=== PATIENT | female | born 1940 | race Caucasian/White ===

== ENCOUNTER → 2016-11-23 | Outpatient (REF) | payer MEDICARE, OTHER ==
[2016-11-23 11:51] LABS: ALBUMIN 3.7 GM/DL (3.2-5.2); ALBUMIN/GLOBULIN RATIO 1.09 (1.00-1.93); BILIRUBIN,TOTAL 0.9 MG/DL (0.2-1.0); CALCIUM LEVEL 9.6 MG/DL (8.8-10.2); CREATININE FOR GFR 1.25 MG/DL (0.55-1.02); GLOMERULAR FILTRATION RATE 44.5 (>39); POTASSIUM SERUM 4.5 MEQ/L (3.5-5.1); TOTAL PROTEIN 7.1 GM/DL (6.4-8.2)
== END ==
LOC: M SFHCLERA 09:51
PROVIDERS: ATTEND Physician Assistant
DX: I10 Essential (primary) hypertension (principal); E78.2 Mixed hyperlipidemia

== ENCOUNTER → 2017-01-27 | Outpatient (REF) | payer MEDICARE, OTHER | LOC: M LAB REF 12:58 | PROVIDERS: ATTEND Internal Medicine Nephrology | DX: N18.3 Chronic kidney disease, stage 3 (moderate) (principal); I12.9 Hypertensive chronic kidney disease with stage 1 through stage 4 chronic kidney disease, or unspecified chronic kidney disease; Z79.899 Other long term (current) drug therapy ==

== ENCOUNTER → 2017-01-31 | Outpatient (CLI) | payer MEDICARE, OTHER ==
--- NOTE | 2017-01-31 14:42 | REP ---
REASON: Urinary frequency. The pre-void urinary bladder volume calculation is 62 mL and the post-void urinary bladder volume calculation is 0 mL. There were no gross abnormalities, however, ultrasonography cannot rule out small mucosal abnormalities secondary to malignancy and if that is of clinical concern, then cystoscopy would be in order. Signed by Radames Hunt DO 01/31/2017 03:34 P
== END ==
LOC: M RAD 10:44
PROVIDERS: ATTEND Internal Medicine Nephrology
DX: N18.3 Chronic kidney disease, stage 3 (moderate) (principal); R35.0 Frequency of micturition

== ENCOUNTER → 2017-02-03 | Outpatient (REF) | payer MEDICARE, OTHER ==
[2017-02-03 17:17] LABS: COMPLEMENT C3 138 MG/DL (90-180); COMPLEMENT C4 26.1 MG/DL (10-40); TOTAL PROTEIN 6.9 GM/DL (6.4-8.2)
[2017-02-06 11:55] LABS: ALBUMIN % 57.9 % (55.8-66.1)
[2017-02-06 11:56] LABS: GAMMA GLOBULIN % 13.8 % (11.1-18.8)
[2017-02-08 14:15] LABS: FREE KAPPA LIGHT CHAINS SERUM 32.2 mg/L (3.3-19.4); FREE LAMBDA LIGHT CHAINS SERUM 31.3 mg/L (5.7-26.3); KAPPA/LAMBDA RATIO SERUM 1.03 (0.26-1.65); SJOGREN'S ANTI SS-A <0.2 AI (0.0-0.9); SJOGREN'S ANTI SS-B <0.2 AI (0.0-0.9)
== END ==
LOC: M LAB REF 16:46
PROVIDERS: ATTEND Internal Medicine Nephrology
DX: N18.3 Chronic kidney disease, stage 3 (moderate) (principal); R80.9 Proteinuria, unspecified

== ENCOUNTER → 2017-02-23 | Outpatient (CLI) | payer MEDICARE, OTHER ==
--- NOTE | 2017-02-23 10:10 | REP ---
RENAL ULTRASOUND: Real-time sonographic evaluation of the kidneys performed. There is mild left renal atrophy. Right kidney measures 10.1 x 6.0 x 5.2 cm and left kidney 8.6 x 4.2 x 4.3 cm. There is no hydronephrosis bilaterally. There is an extrarenal pelvis on the right. There is no renal mass or calculus identified. Urinary bladder is not well distended and not well evaluated. IMPRESSION: Mild left renal atrophy. No hydronephrosis. Signed by Zach Saucedo MD 02/23/2017 03:12 P
== END ==
LOC: M RAD 09:33
PROVIDERS: ATTEND Internal Medicine Nephrology
DX: N18.3 Chronic kidney disease, stage 3 (moderate) (principal); N26.1 Atrophy of kidney (terminal); I12.9 Hypertensive chronic kidney disease with stage 1 through stage 4 chronic kidney disease, or unspecified chronic kidney disease

== ENCOUNTER → 2017-04-07 | Outpatient (REF) | payer MEDICARE, OTHER ==
[2017-04-07 11:58] LABS: MEAN CORPUSCULAR HEMOGLOBIN 32.8 pg (27.0-33.0); MEAN CORPUSCULAR HGB CONC 33.9 g/dl (32.0-36.5); MEAN CORPUSCULAR VOLUME 96.5 fl (80.0-96.0); RED CELL DISTRIBUTION WIDTH 11.4 % (11.5-14.5)
[2017-04-07 13:00] LABS: ALBUMIN/GLOBULIN RATIO 1.11 (1.00-1.93); BILIRUBIN,TOTAL 0.7 MG/DL (0.2-1.0); CALCIUM LEVEL 9.9 MG/DL (8.8-10.2); CREATININE FOR GFR 1.27 MG/DL (0.55-1.02); GLOMERULAR FILTRATION RATE 43.7 (>39); POTASSIUM SERUM 4.4 MEQ/L (3.5-5.1); TOTAL PROTEIN 7.6 GM/DL (6.4-8.2)
== END ==
LOC: M SFHCLERA 10:09
PROVIDERS: ATTEND Physician Assistant
DX: I10 Essential (primary) hypertension (principal); E78.2 Mixed hyperlipidemia; E55.9 Vitamin D deficiency, unspecified

== ENCOUNTER → 2017-10-30 | Outpatient (REF) | payer MEDICARE, OTHER ==
[2017-10-30 18:07] LABS: TOTAL PROTEIN,RANDOM URINE 71.5 MG/DL (0.0-12.0)
== END ==
LOC: M LAB REF 17:04
DX: R80.9 Proteinuria, unspecified (principal); N18.3 Chronic kidney disease, stage 3 (moderate)
CPT/HCPCS: 84156

== ENCOUNTER → 2017-11-28 | Outpatient (CLI) | payer MEDICARE, OTHER | LOC: M RAD 09:36 | DX: N18.3 Chronic kidney disease, stage 3 (moderate) (principal); N26.1 Atrophy of kidney (terminal) | CPT/HCPCS: 78707 ==

== ENCOUNTER → 2018-01-08 | Outpatient (REF) | payer MEDICARE, OTHER ==
[2018-01-08 19:31] LABS: TOTAL PROTEIN,RANDOM URINE 81.9 MG/DL (0.0-12.0)
== END ==
LOC: M LAB REF 17:56
DX: R80.9 Proteinuria, unspecified (principal); N18.3 Chronic kidney disease, stage 3 (moderate)
CPT/HCPCS: 84156

== ENCOUNTER → 2018-01-16 | Outpatient (CLI) | payer MEDICARE, OTHER | LOC: M RAD 07:40 | DX: N27.0 Small kidney, unilateral (principal) | CPT/HCPCS: 76775 ==

== ENCOUNTER → 2018-03-29 | Outpatient (REF) | payer MEDICARE, OTHER ==
[2018-03-29 16:22] LABS: BASO # 0.1 10^3/uL (0.0-0.2); BASO % 0.8 % (0.0-1.0); EOS # 0.1 10^3/uL (0.0-0.50); EOS % 1.6 % (0.0-3.0); HEMATOCRIT 39.8 % (36.0-47.0); HEMOGLOBIN 13.6 g/dl (12.0-15.5); IMMATURE GRANULOCYTE % 0.3 % (0-3.0); LYMPH # 0.7 10^3/uL (1.5-4.5); LYMPH % 8.6 % (24.0-44.0); MEAN CORPUSCULAR HEMOGLOBIN 33.1 pg (27.0-33.0); MEAN CORPUSCULAR HGB CONC 34.2 g/dl (32.0-36.5); MEAN CORPUSCULAR VOLUME 96.8 fl (80.0-96.0); MONO # 0.8 10^3/uL (0.0-0.8); MONO % 10.4 % (0.0-5.0); NEUTROPHILS % 78.3 % (36.0-66.0); PLATELET COUNT, AUTOMATED 155 10^3/uL (150-450); RED BLOOD COUNT 4.11 10^6/uL (4.00-5.40); RED CELL DISTRIBUTION WIDTH 11.7 % (11.5-14.5); WHITE BLOOD COUNT 7.7 10^3/uL (4.0-10.0)
[2018-03-29 17:05] LABS: CREATININE, URINE 77.1 MG/DL
[2018-03-29 17:14] LABS: ALBUMIN 4.2 GM/DL (3.2-5.2); ALBUMIN/GLOBULIN RATIO 1.31 (1.00-1.93); ALKALINE PHOSPHATASE 83 U/L (45-117); ALT/SGPT 29 U/L (12-78); ANION GAP 9 MEQ/L (8-16); AST/SGOT 32 U/L (7-37); BILIRUBIN,TOTAL 0.5 MG/DL (0.2-1.0); BLOOD UREA NITROGEN 36 MG/DL (7-18); CALCIUM LEVEL 10.1 MG/DL (8.8-10.2); CARBON DIOXIDE LEVEL 27 MEQ/L (21-32); CHLORIDE LEVEL 104 MEQ/L (98-107); CHOLESTEROL LEVEL 162 MG/DL (<200); CHOLESTEROL RISK RATIO 4.909 (<5); CREATININE FOR GFR 1.26 MG/DL (0.55-1.30); GLUCOSE, FASTING 83 MG/DL (70-100); HDL CHOLESTEROL 33 MG/DL (>40); LDL CHOLESTEROL 77 MG/DL (<100); MAU/CREAT RATIO 389.1 MCG/MG (0.0-30.0); NON-HDL-C 129 MG/DL; POTASSIUM SERUM 4.6 MEQ/L (3.5-5.1); SODIUM LEVEL 140 MEQ/L (136-145); TOTAL PROTEIN 7.4 GM/DL (6.4-8.2); TRIGLYCERIDES LEVEL 258 MG/DL (<150)
[2018-03-29 17:55] LABS: ESTIMATED AVERAGE GLUCOSE 103 MG/DL (60-110); HEMOGLOBIN A1c 5.2 %
== END ==
LOC: M SFHCLERA 11:28
DX: N18.3 Chronic kidney disease, stage 3 (moderate) (principal); I12.9 Hypertensive chronic kidney disease with stage 1 through stage 4 chronic kidney disease, or unspecified chronic kidney disease; N39.41 Urge incontinence; M19.90 Unspecified osteoarthritis, unspecified site; R09.82 Postnasal drip; Z79.899 Other long term (current) drug therapy
CPT/HCPCS: 84443

== ENCOUNTER → 2018-04-24 | Outpatient (REF) | payer MEDICARE, OTHER ==
[2018-04-24 22:33] LABS: TOTAL PROTEIN,RANDOM URINE 56.3 MG/DL (0.0-12.0)
== END ==
LOC: M LAB REF 17:11
DX: R80.9 Proteinuria, unspecified (principal); N18.3 Chronic kidney disease, stage 3 (moderate)
CPT/HCPCS: 84156

== ENCOUNTER → 2018-04-26 | Outpatient (REF) | payer MEDICARE, OTHER ==
[2018-04-26 14:31] LABS: TOTAL PROTEIN 7.4 GM/DL (6.4-8.2)
[2018-04-28 00:06] LABS: FREE KAPPA LIGHT CHAINS SERUM 33.3 mg/L (3.3-19.4); FREE LAMBDA LIGHT CHAINS SERUM 32.3 mg/L (5.7-26.3); KAPPA/LAMBDA RATIO SERUM 1.03 (0.26-1.65)
[2018-05-01 13:41] LABS: ALBUMIN 4.45 GM/DL (3.29-5.55); ALBUMIN % 60.1 % (55.8-66.1); ALPHA-1-GLOBULIN % 4.1 % (2.9-4.9); ALPHA-2-GLOBULINS 0.82 GM/DL (0.42-0.99); ALPHA-2-GLOBULINS % 11.1 % (7.1-11.8); BETA-1-GLOBULINS 0.42 GM/DL (0.28-0.60); BETA-1-GLOBULINS % 5.7 % (4.7-7.2); BETA-2-GLOBULINS 0.39 GM/DL (0.19-0.55); BETA-2-GLOBULINS % 5.3 % (3.2-6.5); GAMMA GLOBULIN % 13.7 % (11.1-18.8); GAMMA GLOBULINS 1.01 GM/DL (0.65-1.58)
== END ==
LOC: M LAB REF 13:57
DX: N18.3 Chronic kidney disease, stage 3 (moderate) (principal); E83.52 Hypercalcemia; R80.9 Proteinuria, unspecified
CPT/HCPCS: 84165

== ENCOUNTER → 2018-10-22 | Outpatient (REF) | payer MEDICARE, OTHER ==
[2018-10-22 17:16] LABS: CALCIUM LEVEL 10.3 MG/DL (8.8-10.2); CREATININE FOR GFR 1.24 MG/DL (0.55-1.30); GLOMERULAR FILTRATION RATE 44.7 (>39); POTASSIUM SERUM 4.5 MEQ/L (3.5-5.1)
== END ==
LOC: M SFHCLERA 10:57
PROVIDERS: ATTEND Family Medicine
DX: I10 Essential (primary) hypertension (principal)
CPT/HCPCS: 80048; G0463

== ENCOUNTER → 2018-10-25 | Outpatient (REF) | payer MEDICARE, OTHER | LOC: M SFHCLERA 10:33 | PROVIDERS: ATTEND Family Medicine | DX: E83.52 Hypercalcemia (principal) ==

== ENCOUNTER → 2018-11-01 | Outpatient (REF) | payer MEDICARE, OTHER ==
[2018-11-01 19:25] LABS: TOTAL PROTEIN,RANDOM URINE 61.1 MG/DL (0.0-12.0); URINE TOTAL PROTEIN 61.1 MG/DL (0-12)
== END ==
LOC: M LAB REF 17:21
PROVIDERS: ATTEND Internal Medicine Nephrology
DX: N18.3 Chronic kidney disease, stage 3 (moderate) (principal); E83.52 Hypercalcemia; R80.9 Proteinuria, unspecified

== ENCOUNTER → 2019-01-21 | Outpatient (REF) | payer MEDICARE, OTHER ==
[2019-01-21 17:04] LABS: CALCIUM LEVEL 9.7 MG/DL (8.8-10.2); CREATININE FOR GFR 1.24 MG/DL (0.55-1.30); GLOMERULAR FILTRATION RATE 44.7 (>39); MAGNESIUM LEVEL 2.2 MG/DL (1.8-2.4); POTASSIUM SERUM 4.2 MEQ/L (3.5-5.1)
[2019-01-21 17:15] LABS: TOTAL 25(OH) VITAMIN D 46.1 NG/ML (30.0-100.0)
== END ==
LOC: M SFHCLERA 12:26
PROVIDERS: ATTEND Family Medicine
DX: E83.42 Hypomagnesemia (principal); N18.3 Chronic kidney disease, stage 3 (moderate)
CPT/HCPCS: 80048; 82306; 83735; G0463

== ENCOUNTER → 2019-04-23 | Outpatient (REF) | payer MEDICARE, OTHER ==
[2019-04-23 16:35] LABS: BASO # 0.1 10^3/uL (0.0-0.2); BASO % 0.8 % (0.0-1.0); EOS # 0.1 10^3/uL (0.0-0.5); EOS % 1.4 % (0.0-3.0); HEMATOCRIT 41.5 % (36.0-47.0); HEMOGLOBIN 13.4 g/dl (12.0-15.5); LYMPH # 0.9 10^3/uL (1.5-5.0); LYMPH % 10.1 % (24.0-44.0); MEAN CORPUSCULAR HEMOGLOBIN 32.8 pg (27.0-33.0); MEAN CORPUSCULAR HGB CONC 32.3 g/dl (32.0-36.5); MEAN CORPUSCULAR VOLUME 101.5 fl (80.0-96.0); MONO # 0.9 10^3/uL (0.0-0.8); MONO % 10.6 % (0.0-5.0); NEUTROPHILS # 6.7 10^3/uL (1.5-8.5); NEUTROPHILS % 76.8 % (36.0-66.0); PLATELET COUNT, AUTOMATED 189 10^3/uL (150-450); RED BLOOD COUNT 4.09 10^6/uL (4.00-5.40); WHITE BLOOD COUNT 8.8 10^3/uL (4.0-10.0)
[2019-04-23 17:42] LABS: CREATININE FOR GFR 1.09 MG/DL (0.55-1.30); GLOMERULAR FILTRATION RATE 51.7 (>39); MAGNESIUM LEVEL 2.1 MG/DL (1.8-2.4); PHOSPHORUS LEVEL 3.5 MG/DL (2.5-4.9); POTASSIUM SERUM 4.4 MEQ/L (3.5-5.1); THYROID STIMULATING HORMONE 2.45 uIU/ML (0.358-3.740)
[2019-04-23 17:45] LABS: CREATININE, URINE 87.9 MG/DL; MAU/CREAT RATIO 313.9 MCG/MG (0.0-30.0)
== END ==
LOC: M SFHCLERA 11:44
PROVIDERS: ATTEND Family Medicine
DX: I12.9 Hypertensive chronic kidney disease with stage 1 through stage 4 chronic kidney disease, or unspecified chronic kidney disease (principal); E83.42 Hypomagnesemia; N18.3 Chronic kidney disease, stage 3 (moderate)
CPT/HCPCS: 80048; 82043; 83735; 84100; 84443; 85025; G0463

== ENCOUNTER → 2019-05-09 | Outpatient (REF) | payer MEDICARE, OTHER | LOC: M LAB REF 13:03 | PROVIDERS: ATTEND Internal Medicine Nephrology | DX: N18.3 Chronic kidney disease, stage 3 (moderate) (principal); R80.9 Proteinuria, unspecified ==

== ENCOUNTER 2019-07-25 07:32 | Day surgery (SDC) | payer MEDICARE, OTHER ==
[~2019-07-25] VITALS: Ht 147.3 cm; Wt 57.5 kg
[~2019-07-25 07:32] MED LIST: AMLO5TAB6 PO; BIOT1CAP2 PO; CHEL100T4 PO; FISH1000 PO; HM S0.65; MULTCAP PO; OPTI0.5D5 OP; PRESCAP PO; SM G150T PO; SPIR-10 PO; TOPR25TA PO; VITA100066 PO; VITA500C24 PO
[2019-07-25] MEDS ORDERED: LIDOCAINE 2% INJ 100 MG/5 ML SDV (FOR ANES.) As Ordered ONE (08:07)
[2019-07-25] MEDS ORDERED: propofoL 200 MG/20 ML VIAL As Ordered ONE (08:07)
[2019-07-25] MEDS ORDERED: NS 1,000 ML IV ONE (09:00)
--- NOTE | 2019-07-25 09:21 | ROOR ---
Patient Name: Kylah Valderrama Procedure Date: 07/25/2019 8:54 AM Date of : 1940 Age: 79 Room: [facility] Gender: Female Note Status: Finalized Procedure: Colonoscopy Indications: High risk colon cancer surveillance: Personal history of colonic polyps Providers: Bebeto CABRERA MD Referring MD: Zach BRYAN MD Requesting Provider: Medicines: Monitored Anesthesia Care Complications: No immediate complications. Procedure: Pre-Anesthesia Assessment: - The heart rate, respiratory rate, oxygen saturations, blood pressure, adequacy of pulmonary ventilation, and response to care were monitored throughout the procedure. The Colonoscope was introduced through the anus and advanced to the terminal ileum, with identification of the appendiceal orifice and IC valve. The colonoscopy was performed without difficulty. The patient tolerated the procedure well. The quality of the bowel preparation was good. Findings: The perianal and digital rectal examinations were normal. Three sessile polyps were found in the ascending colon. The polyps were diminutive in size. These polyps were removed with a cold snare. Resection and retrieval were complete. A 5 mm polyp was found in the recto-sigmoid colon. The polyp was sessile. The polyp was removed with a cold snare. Resection and retrieval were complete. Mild sigmoid diverticulosis and small internal hemorrhoids. The exam was otherwise without abnormality on direct and retroflexion views. Retroflexion in the right colon was performed. There was a medium-sized lipoma, in the mid ascending colon. Impression: - Three diminutive polyps in the ascending colon, removed with a cold snare. Resected and retrieved. - One 5 mm polyp at the recto-sigmoid colon, removed with a cold snare. Resected and retrieved. - Mild sigmoid diverticulosis and small internal hemorrhoids. - The examination was otherwise normal on direct and retroflexion views. Recommendation: - Repeat colonoscopy in 3 years for surveillance. Bebeto Cabrera MD Bebeto CABRERA MD 07/25/2019 9:21:21 AM Electronically signed by Bebeto CABRERA MD Number of Addenda: 0 Note Initiated On: 07/25/2019 8:54 AM Estimated Blood Loss: Estimated blood loss: none.
[2019-07-25 09:50] VITALS: BP 166/88
== END 2019-07-25 10:01 | disposition home or self-care (01) ==
LOC: M OPP 07:32
PROVIDERS: ATTEND Internal Medicine Gastroenterology
DX: Z12.11 Encounter for screening for malignant neoplasm of colon (principal); Z86.010 Personal history of colon polyps; D12.7 Benign neoplasm of rectosigmoid junction; D12.2 Benign neoplasm of ascending colon; D17.5 Benign lipomatous neoplasm of intra-abdominal organs; K57.30 Diverticulosis of large intestine without perforation or abscess without bleeding; K64.8 Other hemorrhoids; Z79.82 Long term (current) use of aspirin; Z79.899 Other long term (current) drug therapy; Z88.1 Allergy status to other antibiotic agents; Z88.2 Allergy status to sulfonamides

== ENCOUNTER → 2019-11-08 | Outpatient (REF) | payer MEDICARE, OTHER | LOC: M LAB REF 17:19 | PROVIDERS: ATTEND Internal Medicine Nephrology | DX: R80.9 Proteinuria, unspecified (principal); N18.3 Chronic kidney disease, stage 3 (moderate) ==

== ENCOUNTER → 2020-05-13 | Outpatient (REF) | payer MEDICARE, OTHER ==
[~2020-05-13] MED LIST changes: +AMLO1TAB24 PO; -AMLO5TAB6 PO
[2020-05-13 18:21] LABS: TOTAL PROTEIN 6.8 GM/DL (6.4-8.2)
[2020-05-13 18:25] LABS: TOTAL PROTEIN,RANDOM URINE 50.7 MG/DL (0.0-12.0)
[2020-05-14 14:53] LABS: ALBUMIN 4.21 GM/DL (3.29-5.55); ALBUMIN % 61.9 % (55.8-66.1); ALPHA-1-GLOBULIN % 4.1 % (2.9-4.9); ALPHA-1-GLOBULINS 0.28 GM/DL (0.17-0.41); ALPHA-2-GLOBULINS 0.71 GM/DL (0.42-0.99); ALPHA-2-GLOBULINS % 10.4 % (7.1-11.8); BETA-1-GLOBULINS 0.37 GM/DL (0.28-0.60); BETA-1-GLOBULINS % 5.5 % (4.7-7.2); BETA-2-GLOBULINS 0.33 GM/DL (0.19-0.55); BETA-2-GLOBULINS % 4.8 % (3.2-6.5); GAMMA GLOBULIN % 13.3 % (11.1-18.8)
== END ==
LOC: M LAB REF 17:10
PROVIDERS: ATTEND Internal Medicine Nephrology
DX: R80.9 Proteinuria, unspecified (principal)

== ENCOUNTER → 2020-08-28 | Outpatient (CLI) | payer MEDICARE, OTHER ==
--- NOTE | 2020-08-28 12:53 | REPMRS ---
Patient History The patient states she has not had a clinical breast exam in over a year. Patient is postmenopausal. Digital Woman Screen Mammo: August 28, 2020 - Exam #: [id number] Bilateral CC and MLO view(s) were taken. Technologist: Verito Mariano, Technologist Prior study comparison: February 25, 2019, bilateral digital mammo screening bilat, performed at [facility]. February 22, 2018, bilateral digital mammo screening bilat, performed at [facility]. February 21, 2017, bilateral digital mammo screening bilat, performed at [facility]. FINDINGS: The breast tissue is heterogeneously dense. This may lower the sensitivity of mammography. The Volpara volumetric breast density category is: C. There is a moderate amount of heterogeneously dense fibroglandular tissue which is fairly symmetric. There is no interval development of dominant mass, architectural distortion, or grouped microcalcification typical of malignancy. There has been no change in the appearance of the mammogram from the prior studies. 3-D tomosynthesis shows no additional findings. Assessment: BI-RADS/ACR category 1 mammogram. Negative Mammogram. Recommendation Routine screening mammogram of both breasts in 1 year (for women over age 40). This patient's [facility] Lifetime Breast Cancer RIsk is estimated at 2.2 %. This mammogram was interpreted with the aid of an FDA-approved computer-aided dectection system. Electronically Signed By: Jaden Gonzalez MD 08/28/20 5086
== END ==
LOC: M WHC 11:23
PROVIDERS: ATTEND Nurse Practitioner Family
DX: Z12.31 Encounter for screening mammogram for malignant neoplasm of breast (principal)

== ENCOUNTER → 2020-10-30 | Outpatient (CLI) | payer MEDICARE, OTHER | LOC: M PLARAD 13:23 | PROVIDERS: ATTEND Orthopaedic Surgery Sports Medicine | DX: S46.012A Strain of muscle(s) and tendon(s) of the rotator cuff of left shoulder, initial encounter (principal); X58.XXXA Exposure to other specified factors, initial encounter; Y92.9 Unspecified place or not applicable ==

== ENCOUNTER → 2021-01-06 | Outpatient (CLI) | payer MEDICARE, OTHER ==
[~2021-01-06] MED LIST changes: +HYDR-3363; +LEXA5TAB13; +METO1TAB32
[2021-01-06 11:52] LABS: BASO % 0.5 % (0.0-1.0); EOS # 0.1 10^3/uL (0.0-0.5); EOS % 0.8 % (0.0-3.0); HEMATOCRIT 29.8 % (36.0-47.0); HEMOGLOBIN 9.6 g/dl (12.0-15.5); LYMPH # 0.5 10^3/uL (1.5-5.0); LYMPH % 6.7 % (24.0-44.0); MEAN CORPUSCULAR HGB CONC 32.2 g/dl (32.0-36.5); MEAN CORPUSCULAR VOLUME 99.3 fl (80.0-96.0); MONO # 1.1 10^3/uL (0.0-0.8); MONO % 14.1 % (2.0-8.0); NEUTROPHILS # 5.8 10^3/uL (1.5-8.5); NEUTROPHILS % 77.4 % (36.0-66.0); PLATELET COUNT, AUTOMATED 166 10^3/uL (150-450); WHITE BLOOD COUNT 7.5 10^3/uL (4.0-10.0)
[2021-01-06 12:23] LABS: ALT/SGPT 44 U/L (12-78); BILIRUBIN,TOTAL 0.6 MG/DL (0.2-1.0); BLOOD UREA NITROGEN 33 MG/DL (7-18); CALCIUM LEVEL 9.3 MG/DL (8.8-10.2); CARBON DIOXIDE LEVEL 26 MEQ/L (21-32); CHLORIDE LEVEL 110 MEQ/L (98-107); CHOLESTEROL LEVEL 74 MG/DL (<200); CREATININE FOR GFR 0.78 MG/DL (0.55-1.30); GLOMERULAR FILTRATION RATE > 60.0 (>39); GLUCOSE, FASTING 96 MG/DL (70-100); HDL CHOLESTEROL 20 MG/DL (>40); LDL CHOLESTEROL 28 MG/DL (<100); MAGNESIUM LEVEL 1.6 MG/DL (1.8-2.4); NON-HDL-C 54 MG/DL; POTASSIUM SERUM 3.7 MEQ/L (3.5-5.1); SODIUM LEVEL 142 MEQ/L (136-145); THYROID STIMULATING HORMONE < 0.005 uIU/ML (0.358-3.740); TOTAL PROTEIN 5.8 GM/DL (6.4-8.2); TRIGLYCERIDES LEVEL 130 MG/DL (<150)
== END ==
LOC: M WUC 09:55
PROVIDERS: ATTEND Nurse Practitioner Family
DX: R41.3 Other amnesia (principal); I10 Essential (primary) hypertension; E78.2 Mixed hyperlipidemia; E83.42 Hypomagnesemia

== ENCOUNTER 2021-01-10 14:50 | Emergency (ER) | payer MEDICARE, OTHER ==
[~2021-01-10] VITALS: Ht 154.9 cm; Wt 49.5 kg
[~2021-01-10 14:50] MED LIST changes: -HYDR-3363; -LEXA5TAB13; -METO1TAB32
[2021-01-10] MEDS ORDERED: HYDR-3363 (15:04)
[2021-01-10] MEDS ORDERED: LEXA5TAB13 (15:04)
[2021-01-10] MEDS ORDERED: METO1TAB32 (15:04)
[2021-01-10 15:51] LABS: BASO % 0.4 % (0.0-1.0); EOS # 0.1 10^3/uL (0.0-0.5); HEMATOCRIT 30.1 % (36.0-47.0); HEMOGLOBIN 9.7 g/dl (12.0-15.5); LYMPH # 0.5 10^3/uL (1.5-5.0); LYMPH % 7.3 % (24.0-44.0); MEAN CORPUSCULAR HEMOGLOBIN 31.3 pg (27.0-33.0); MEAN CORPUSCULAR HGB CONC 32.2 g/dl (32.0-36.5); MEAN CORPUSCULAR VOLUME 97.1 fl (80.0-96.0); MONO % 15.4 % (2.0-8.0); NEUTROPHILS # 5.1 10^3/uL (1.5-8.5); NEUTROPHILS % 75.8 % (36.0-66.0); PLATELET COUNT, AUTOMATED 139 10^3/uL (150-450); WHITE BLOOD COUNT 6.7 10^3/uL (4.0-10.0)
[2021-01-10 16:18] LABS: OSMOLALITY SERUM 303 MOSM/KG (280-301)
[2021-01-10 16:25] LABS: ALBUMIN 2.9 GM/DL (3.2-5.2); ALT/SGPT 40 U/L (12-78); BILIRUBIN,DIRECT 0.1 MG/DL (0.0-0.2); BILIRUBIN,TOTAL 0.3 MG/DL (0.2-1.0); BLOOD UREA NITROGEN 34 MG/DL (7-18); CALCIUM LEVEL 9.5 MG/DL (8.8-10.2); CARBON DIOXIDE LEVEL 28 MEQ/L (21-32); CHLORIDE LEVEL 111 MEQ/L (98-107); CK-MB VALUE MASS < 1.0 NG/ML (<3.6); CPK CREATINE PHOSPHOKINASE 30 U/L (26-192); CREATININE FOR GFR 0.81 MG/DL (0.55-1.30); FREE T3 8.4 PG/ML (2.2-4.0); GLOMERULAR FILTRATION RATE > 60.0 (>39); GLUCOSE, FASTING 118 MG/DL (70-100); MAGNESIUM LEVEL 1.7 MG/DL (1.8-2.4); MB/CK RELATIVE INDEX 3.33 (< OR =4); POTASSIUM SERUM 4.6 MEQ/L (3.5-5.1); SODIUM LEVEL 145 MEQ/L (136-145); THYROID STIMULATING HORMONE < 0.005 uIU/ML (0.358-3.740); TOTAL PROTEIN 5.8 GM/DL (6.4-8.2); TROPONIN I 0.05 NG/ML (< 0.10)
[2021-01-10 17:45] VITALS: BP 158/71
[2021-07-05] MEDS ORDERED: MULT-90 PO (10:10)
== END 2021-01-10 18:03 | disposition home or self-care (01) ==
LOC: M ED 14:50
DX: R41.0 Disorientation, unspecified (principal); R41.3 Other amnesia; I10 Essential (primary) hypertension; E78.5 Hyperlipidemia, unspecified; F33.9 Major depressive disorder, recurrent, unspecified; F41.9 Anxiety disorder, unspecified; Z79.899 Other long term (current) drug therapy; Z88.1 Allergy status to other antibiotic agents; Z88.2 Allergy status to sulfonamides

== ENCOUNTER → 2021-01-14 | Outpatient (CLI) | payer MEDICARE, OTHER ==
[~2021-01-14] MED LIST changes: +HYDR-3363; +LEXA5TAB13; +METO1TAB32
== END ==
LOC: M WUC 14:21
PROVIDERS: ATTEND Nurse Practitioner Family
DX: D75.89 Other specified diseases of blood and blood-forming organs (principal)

== ENCOUNTER → 2021-01-26 | Outpatient (CLI) | payer MEDICARE, OTHER ==
--- NOTE | 2021-01-27 16:03 | REP ---
INDICATION: THYROITOXICOSIS COMPARISON: None. TECHNIQUE/RADIOTRACER AND DOSE: 463.0 uCi of Iodine-123 sodium iodide is ingested and functional thyroid images and thyroid uptake values are acquired. FINDINGS: 24 hour thyroid uptake value is elevated at 46.3% (25-35%). Thyroid functional scan images demonstrate homogeneous uptake in normal cyst appearing thyroid lobes. No cold or warm lesion seen. IMPRESSION: Increased uptake, homogeneous function. Findings consistent with Graves disease. RECOMMENDATION: None. <Electronically signed by Jaden Gonzalez > 01/27/21 1600
== END ==
LOC: M RAD 14:31
PROVIDERS: ATTEND Internal Medicine Endocrinology, Diabetes & Metabolism
DX: E05.00 Thyrotoxicosis with diffuse goiter without thyrotoxic crisis or storm (principal)
CPT/HCPCS: 78012; A9516

== ENCOUNTER → 2021-03-16 | Outpatient (CLI) | payer MEDICARE, OTHER ==
[2021-03-16 12:21] LABS: BASO # 0.1 10^3/uL (0.0-0.2); BASO % 1.1 % (0.0-1.0); EOS # 0.1 10^3/uL (0.0-0.5); EOS % 1.4 % (0.0-3.0); HEMATOCRIT 38.1 % (36.0-47.0); HEMOGLOBIN 12.4 g/dl (12.0-15.5); LYMPH # 0.8 10^3/uL (1.5-5.0); LYMPH % 11.7 % (24.0-44.0); MEAN CORPUSCULAR HEMOGLOBIN 31.1 pg (27.0-33.0); MEAN CORPUSCULAR HGB CONC 32.5 g/dl (32.0-36.5); MEAN CORPUSCULAR VOLUME 95.5 fl (80.0-96.0); MONO # 0.7 10^3/uL (0.0-0.8); MONO % 10.5 % (2.0-8.0); NEUTROPHILS # 4.9 10^3/uL (1.5-8.5); PLATELET COUNT, AUTOMATED 180 10^3/uL (150-450); RED BLOOD COUNT 3.99 10^6/uL (4.00-5.40); WHITE BLOOD COUNT 6.6 10^3/uL (4.0-10.0)
[2021-03-16 12:59] LABS: BILIRUBIN,TOTAL 0.6 MG/DL (0.2-1.0); CALCIUM LEVEL 9.5 MG/DL (8.8-10.2); CREATININE FOR GFR 1.2 MG/DL (0.55-1.30); GLOMERULAR FILTRATION RATE 46.1 (>39); POTASSIUM SERUM 4.8 MEQ/L (3.5-5.1)
[2021-03-16 13:00] LABS: ALBUMIN 3.6 GM/DL (3.2-5.2); CHOLESTEROL RISK RATIO 3.673 (<5); THYROID STIMULATING HORMONE 4.37 uIU/ML (0.358-3.740); TOTAL 25(OH) VITAMIN D 51.3 NG/ML (30.0-100.0)
[2021-03-16 15:24] LABS: HEMOGLOBIN A1c 5.3 %
== END ==
LOC: M LAB 11:15
PROVIDERS: ATTEND Psychiatry & Neurology Neurology
DX: I63.9 Cerebral infarction, unspecified (principal); Z79.899 Other long term (current) drug therapy

== ENCOUNTER → 2021-04-08 | Outpatient (REF) | payer MEDICARE, OTHER | LOC: M LAB REF 17:18 | PROVIDERS: ATTEND Internal Medicine Nephrology | DX: E83.42 Hypomagnesemia (principal) ==

== ENCOUNTER 2021-05-15 20:25 | Emergency (ER) | payer MEDICARE, OTHER ==
[~2021-05-15] VITALS: Ht 149.9 cm; Wt 45.1 kg
--- OUTSIDE RECORDS SUMMARY | 2021-05-15 20:38 | CCD | Continuity of Care Document ---
Author Author Kylah HOLLOWAY MD Organization Unknown Address [address] [place] [address], it e [address] [place] [address] Phone [phone] Care Team Providers Care Human Resources Representative Name Role Phone Marleen Norwood AUT [phone] Problems Active Problems Provider Date Essential hypertension Mendy Holloway MD Onset: 01/15/2021 Social History Type Date Description Comments Sex Unknown Tobacco Use Start: Unknown Never Smoked Cigarettes Tobacco Use Start: Unknown Patient has never smoked Smoking Status Reviewed: 04/26/21 Patient has never smoked Allergies and adverse reactions Description No Information Available Medications Active Medications SIG Qnty Indications Ordering Provide r Date Methimazole 10mg Tablets 2 by mouth every day 180tabs E05.00 Mendy Holloway MD 01/29/2021 Metoprolol Succinate ER 25mg Tablets ER 24HR 3 tablets by mouth daily Rhea Norwood FNP Escitalopram Oxalate 5mg Tablets 1 by mouth daily Marleen Norwood FNP 0 000 Hydroxyzine HCL 25mg Tablets Take One Tablet By Mouth Daily AT Bedtime as Needed For Insomnia Unknown Spironolactone 25mg Tablets 1 by mouth daily Marleen Norwood FNP 0 000 Amlodipine Besylate 5mg Tablets 2 tablets by mouth daily Unknown Immunizations Description No Information Available Vital Signs Date Vital Result Comment 01/29/2021 10:57am BP Systolic 136 mmHg BP Diastolic 80 mmHg Heart Rate 61 /min Height 57.3 inches 4'9.30" Weight 108.12 lb BMI (Body Mass Index) 23.2 kg/m2 O2 % BldC Oximetry 98 % 01/18/2021 10:52am BP Systolic 126 mmHg BP Diastolic 84 mmHg Heart Rate 131 /min Height 57.3 inches 4'9.30" Weight 105.19 lb BMI (Body Mass Index) 22.5 kg/m2 Results Test Acquired Date Facility Test Result H/L Range Note Laboratory test finding 04/23/2021 [place] [address] [phone] T4 - Free 0.12 ng/dL Low 0.93 - 1.70 TSH Highly Sensitive 211.80 uIU/mL High 0.47 - 5.01 Procedures Date Code Description Status 04/26/2021 29981 Phone Evaluation/Management Phys ician 11-20 Mins Completed 01/29/2021 18500 Office/Outpatient Established Mo d MDM 30-39 Min Completed 01/18/2021 13453 Office/Outpatient New High MDM 6 0-74 Minutes Completed Medical Devices Description No Information Available Encounters Type Date Location Provider Dx Diagnosis Office Visit 04/26/2021 1:45p DR. 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 Mendy Holloway MD E 05.00 Thyrotoxicosis w diffuse goiter w/o thyrotoxic crisis R00.2 Palpitations Assessments Date Code Description Provider 04/26/2021 E05.00 Thyrotoxicosis with diffuse goiter without thyrotoxic crisis or storm Mendy Holloway MD 04/26/2021 R00.2 Sarkisitations Mendy Holloway MD 01/29/2021 E05.00 Thyrotoxicosis with diffuse goiter without thyrotoxic crisis or storm Mendy Holloway MD 01/29/2021 R00.2 Sarkisitations Mendy Holloway MD 01/18/2021 E05.00 Thyrotoxicosis with diffuse goiter without thyrotoxic crisis or storm Mendy Holloway MD 01/18/2021 R00.2 Palpitations Mendy Holloway MD Plan of Treatment Future Appointment(s):* 05/31/2021 2:15 pm - Angela Savage GROUP DIRECTOR at DR. Mendy Holloway 04/26/2021 - Mendy Holloway MD* E05.00 Thyrotoxicosis with diffuse goiter without thyrotoxic crisis or storm* New Labs:* FT4&TSH Panel, Scheduled: 05/26/21 * Comments:* Patient presents with overt hyperthyroidism.TSH is suppressed consistent with hyperthyroidism. Differential diagnosis includes Grave's disease, thyroiditis, or hot nodule. Will order uptake and scan01/06/2021, TSH < 0.005, free T4 = 4., TSH <0.005, free T3 = 8.4, grossly elevated She has apathetic hyperthyroidism. poor historian.Needed to discuss her care with her daughter ( by phone) and her friend tat comes in with her todayThyroid scan is reviewed with the patient and her granddaughter. Patient's memory is poor. I explained the results of the scan of the diagnosis of Graves' disease.Explained that options include surgery, radioactive iodine or antithyroid therapy. Based on her advanced age and apathetic hyperthyroidism we all concluded that methimazole therapy would be her best option. Recommendations:01/29/21 Start methimazole 10 mg tablets, 2 by mouth daily 04/25/21:She states she is feeling well, appetite is good, no ankle swelling, no SOB Labs, 04/23/21, TSH = 211, free T4 = 0.12.Patient is grossly overtreated with methimazole.Recommendations: Start methimazole, get repeat thyroid function test and follow-up May 31. * R00.2 Palpitations* Comments:* 12/2020 visitHR was 131 in office. Does admit to heart racing when she lies down. Records state that she has been forgetting meds and is not reliable. Called daughter to advise that she should take all 3 er metoprolol in am.I spoke with her granddaughter today and advised her to check her pulse throughout the week. Today in the office her pulse was 61 She may not of taking her medication when she was in the office and was tachycardic at her initial visit. Do not want her overmedicated. May be able to lower metoprolol to 2 every day.. Functional Status Description No Information Available Mental Status Description No Information Available Referrals Refer to Reason for Referral Status Appt Date Mendy Holloway MD THYROID SCAN AND UPTAKE NO A [facility] REQUIRED BASED ON MEDICAL NECESSITY. LS Created [facility] [facility], [address] [place] [address] [phone]
--- OUTSIDE RECORDS SUMMARY | 2021-05-15 20:38 | CCD ---
Author Author [employer] Organization [employer] Address Unknown Phone Unavailable Care Team Providers Care Real Estate Utilization Officer Name Role Phone Marleen Norwood Unavailable PROBLEMS Type Condition ICD9-CM Code [id number] Code Onset Dates Condition S tatus W/U Status Risk SNOMED Code Notes Problem Mixed hyperlipidemia E78.2 Active confirmed 854497523 Problem Degeneration of lumbar intervertebral disc 722.52 Active confirmed 98040172 Problem Vitamin D deficiency E55.9 Active confirmed 00815133 Problem Essential hypertension I10 Active confirmed 89699720 Problem Psoriasis L40.9 Active confirmed 1032380 Problem Hiatal hernia K44.9 Active confirmed 015486 09 Problem Urge incontinence N39.41 Active confirmed 87 921935 Problem Urge incontinence of urine N39.41 Active confirmed 75193234 Problem Hypomagnesemia E83.42 Active confirmed 86134 5004 Problem Adjustment disorder with anxious mood F43.22 Ac tive confirmed 82226872 Problem Serum calcium elevated E83.52 Active confirmed 75008811 Problem Macrocytosis D75.89 Active confirmed 6812027 00 Problem Laryngopharyngeal reflux (LPR) K21.9 Active confir med 256297556 Problem 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 Active conf irmed 85120274 Problem Hyperthyroidism E05.90 Active confirmed 3448 6009 Problem 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 Active confirmed 8648253 Problem Stage 3 chronic kidney disease N18.3 Active confir med 385834198 Problem Generalized osteoarthritis 715.00 Active confirmed 965930101 Problem CKD (chronic kidney disease), stage III N18.3 Active confirmed 484083767 Problem BECCA (generalized anxiety disorder) F41.1 Activ e confirmed 96149280 Problem Memory dysfunction R41.3 Active confirmed 3 67437701 Problem Memory changes R41.3 Active confirmed 84952 7006 ALLERGIES Allergen (clinical drug ingredient) Drug/Non Drug Allergy do cumented on EMR Reaction Allergy Type Onset Date Status azithromycin Zithromax Z-Prosper([facility] Code:[address]-97) Hives Drug Allergy Active ENCOUNTERS from 1940 to 2021-04-27 Encounter Location Date Provider Diagnosis [facility] [address] [facility] [phone] [place] [address] Apr, Marleen Norwood IMMUNIZATIONS Vaccine Route Administration Date Status Influenza Pharmacy Given Unknown Mar 18, 2019 Adminis tered Influenza 18 yrs & older Flublok IM Intramuscular Mar 29, 2018 Administered Influenza (High Dose 65 & up) IM Intramuscular Apr 19, 2017 A dministered Influenza (High Dose 65 & up) IM Intramuscular Apr 26, 2016 A dministered Influenza (High Dose 65 & up) IM Intramuscular May 01, 2014 A dministered Pneumococcal Adult 0.5mL Pneumovax 23 Unknown January 06 009 Administered TDAP 0.5mL (Boostrix) Unknown May 26, 2010 Administer ed Pneumococcal 0.5mL Prevnar 13 IM Intramuscular Jun 09, 2014 A dministered Influenza 6mo & up Fluzone IM Intramuscular Apr 19, 2012 Admi nistered SOCIAL HISTORY Tobacco Use: Social History Observation Description Date Details (start date - stop date) Never Smoker Sex Assigned At : Social History Observation Description Sex Assigned At Unknown Audit Question Answer Notes Total Score: 1 Interpretation: Alcohol Education Drug and Alcohol Question Answer Notes Total Score: 0 Interpretation: No problems reported BMI Care Goal Follow-Up Question Answer Notes Above Normal BMI Follow-Up Dietary management educatio n, guidance, and counseling, Dietary needs education, Exercise promotion: strength training Tobacco Use: Question Answer Notes Are you a: never smoker REASON FOR REFERRAL No Information VITAL SIGNS No information MEDICATIONS Medication SIG (Take, Route, Frequency, Duration) Notes Start Da te End Date Status Betamethasone Dipropionate 0.05 % 1 application to aff ected area of the arm Externally Once a day Not-Taking Desitin _ as directed Externally As needed Active Garlic 1000 MG Orally daily Not-Matt ing hydrOXYzine HCl 25 MG 1 tablet as needed for insom yinka Orally at bedtime for 30 days Dec, Active Calcium + D3 600-800 MG-UNIT 1 tablet with a meal Orally Once a day Not-Taking Omeprazole 20 MG 1 capsule Orally Once a day for 30 day(s) Oct, Not-Taking Sunvite Active Adult 50+ 1 tablet Orally daily Not-Taking Lexapro 5 MG 1 tablet Orally Once a day for 30 days Jul Active Nizoral 2 % 1 application to scalp Exter sherron twice a week for scalp rash for 30 days Jun, Active Losartan Potassium 25 MG 1 tablet Orally Once a day Not-Taking Vitamin C 500 MG 1 tablet Orally Once a day Not-Taking Metoprolol Succinate 25 mg 3 tablets Orally once daily Not-Taking Magnesium 64mg 1 tablet Orally daily Not-Taking Vitamin D3 25 MCG 1 capsule Orally Once a day Not-Taking Hydrocortisone 1 % 1 application to affected area Externally As neede d OTC Active Aspirin 81 MG 1 tablet Orally once weekly Not-Taking Amlodipine Besylate 5 MG TAKE 2 TABLETS DAILY FOR HIG H BLOOD PRESSURE orally Daily for 90 day(s) Active LORazepam 0.5 MG 1/2 to 1 tab Orally once daily prn anxie ty (MDD:1) for 30 days Jun, Not-Taking Shingrix 50 MCG/0.5ML as directed Intramuscular for 2 days Apr, Not-Taking Spironolactone 25MG TAKE 1 TABLET DAILY Active Biotin 1000 MCG 1 tablet Orally Once a day Not-Taking hydrOXYzine Pamoate 25 MG 1 capsule as needed Orally every 8 hrs for 30 day(s) Dec, Not-Taking Myrbetriq 50 MG 1 tablet Orally Once a day for 90 day(s) 0 Mar, Not-Taking Metoprolol Succinate ER 25 MG TAKE 3 TABLETS ONCE DAILY Active Calcium 600 MG 1 tablet with meals Orally Twice a day Not-Taking Refresh Optive Sensitive 0.5-0.9 % 2-3 drops into affe cted eye as needed Ophthalmic Once a day Active AREDS OTC 1 tablet Orally Twice a day Not-Taking Fish Oil 1000 MG 2 capsule Orally Two times a day Active Terbinafine HCl 1 % 1 application to corners of mouth Externally Twice a day for 14 day(s) Not-Taking Astelin 137 MCG/SPRAY 1 puff as needed Nasally Twi ce a day for rhinitis for 30 day(s) Jun, Not-Taking Avon 3 1000 mg 2 capsules Orally twice daily for high triglycerides Not-Taking Vitamin D3 Complete - 25 mg Orally bid Not-Taking Saline Nasal [facility] 0.65 % Nasally Not-Taking PROCEDURES No Information RESULTS No Results REASON FOR VISIT Nurse Visit MEDICAL (GENERAL) HISTORY Type Description Date Medical History Hypertension Medical History Vitamin D deficiency Medical History Arthritis Medical History External hemorrhoids Medical History h/o depression/anxiety Medical History h/o L knee bursitis Medical History Osteopenia Surgical History BTL 05/1974 Surgical History Endometrial biopsy (Dr. Padilla) - normal 2007 Surgical History Colonoscopy 2005 Hospitalization History childbirth 08/1965 Hospitalization History childbirth 08/1968 Hospitalization History childbirth 04/1970 Hospitalization History childbirth 05/1974 Goals Section No Information Health Concerns No Information MEDICAL EQUIPMENT No Information MENTAL STATUS No Information FUNCTIONAL STATUS No Information ASSESSMENTS No Information PLAN OF TREATMENT Medication Medication Name Sig Start Date Stop Date hydrOXYzine HCl 25 MG 1 tablet as needed for insom yinka Orally at bedtime for 30 days Dec, Amlodipine Besylate 5 MG TAKE 2 TABLETS DAILY FOR HIG H BLOOD PRESSURE orally Daily for 90 day(s) Lexapro 5 MG 1 tablet Orally Once a day for 30 days Jul, 2 020 Insurance Providers Payer Name Payer Address Payer Phone Insured Name Patient Relati onship to Insured Coverage Start Date Coverage End Date MEDICARE Part A and B [address] [facility] [address] [phone] JOBY ROSARIO self R [facility] [address] [address] [facility] [phone] JOBY ROSARIO self
--- OUTSIDE RECORDS SUMMARY | 2021-05-15 20:38 | CCD ---
Author Author [employer] Organization [employer] Address Unknown Phone Unavailable Care Team Providers Care Cable Armorer Operator Name Role Phone Marleen Norwood Unavailable PROBLEMS Type Condition ICD9-CM Code [id number] Code Onset Dates Condition S tatus W/U Status Risk SNOMED Code Notes Problem Mixed hyperlipidemia E78.2 Active confirmed 501694227 Problem Degeneration of lumbar intervertebral disc 722.52 Active confirmed 93893402 Problem Vitamin D deficiency E55.9 Active confirmed 25150517 Problem Essential hypertension I10 Active confirmed 56683465 Problem Psoriasis L40.9 Active confirmed 0988994 Problem Hiatal hernia K44.9 Active confirmed 872911 09 Problem Urge incontinence N39.41 Active confirmed 87 845974 Problem Urge incontinence of urine N39.41 Active confirmed 04628222 Problem Hypomagnesemia E83.42 Active confirmed 28004 5004 Problem Adjustment disorder with anxious mood F43.22 Ac tive confirmed 63767612 Problem Serum calcium elevated E83.52 Active confirmed 72383307 Problem Macrocytosis D75.89 Active confirmed 6912567 00 Problem Laryngopharyngeal reflux (LPR) K21.9 Active confir med 676958209 Problem 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 Active conf irmed 48122544 Problem Hyperthyroidism E05.90 Active confirmed 3448 6009 Problem 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 Active confirmed 6551058 Problem Stage 3 chronic kidney disease N18.3 Active confir med 552605698 Problem Generalized osteoarthritis 715.00 Active confirmed 587326905 Problem CKD (chronic kidney disease), stage III N18.3 Active confirmed 734096805 Problem BECCA (generalized anxiety disorder) F41.1 Activ e confirmed 77455562 Problem Memory dysfunction R41.3 Active confirmed 3 87307999 Problem Memory changes R41.3 Active confirmed 87904 7006 ALLERGIES Allergen (clinical drug ingredient) Drug/Non Drug Allergy do cumented on EMR Reaction Allergy Type Onset Date Status azithromycin Zithromax Z-Prosper([facility] Code:[address]-66) Hives Drug Allergy Active ENCOUNTERS from 1940 to 2021 Encounter Location Date Provider Diagnosis [facility] [address] [facility] [phone] [place] [address] 08 Apr, 2021 Marleen Norwood IMMUNIZATIONS Vaccine Route Administration Date [...] for rhinitis for 30 day(s) Jun, Not-Taking Slater 3 1000 mg 2 capsules Orally twice daily for high triglycerides Not-Taking Vitamin D3 Complete - 25 mg Orally bid Not-Taking Saline Nasal [place] 0.65 % Nasally Not-Taking PROCEDURES No Information RESULTS No Results REASON FOR VISIT Call Back MEDICAL (GENERAL) HISTORY Type Description Date Medical [...] MEDICARE Part A and B [address] [facility] [address] [phone] JOBY ROSARIO self R [facility] [address] [address] [facility] [phone] JOBY ROSARIO self
--- OUTSIDE RECORDS SUMMARY | 2021-05-15 20:38 | CCD | Continuity of Care Document ---
Author Author Kylah HOLLOWAY MD Organization Unknown Address [address] [place] [address], it [address] [place] [address] Phone [phone] Care Team Providers Care Patch Finisher Name Role Phone Marleen Norwood AUT [phone] Problems Active Problems Provider Date Essential hypertension [...] H/L Range Note Laboratory test finding 04/23/2021 [place] [address] [phone] T4 - Free 0.12 ng/dL Low 0.93 - 1.70 TSH Highly Sensitive 211.80 uIU/mL High 0.47 - 5.01 Procedures Date Code Description Status 01/29/2021 69264 Office/Outpatient Established Mo d MDM 30-39 Min Completed 01/18/2021 20648 Office/Outpatient New High MDM 6 0-74 Minutes Completed Medical Devices Description No Information Available Encounters Type Date Location Provider Dx Diagnosis Office Visit 01/29/2021 11:00a DR. 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 Mendy Holloway MD E 05.00 Thyrotoxicosis w diffuse goiter w/o thyrotoxic crisis R00.2 Palpitations Assessments Date Code Description Provider 04/26/2021 E05.00 Thyrotoxicosis with diffuse goiter without thyrotoxic crisis or storm Mendy Holloway MD 04/26/2021 R00.2 Palpitations Mendy Holloway MD 01/29/2021 E05.00 Thyrotoxicosis with diffuse goiter without thyrotoxic crisis or storm Mendy Holloway MD 01/29/2021 R00.2 Palpitations Mendy Holloway MD 01/18/2021 E05.00 Thyrotoxicosis with diffuse goiter without thyrotoxic crisis or storm Mendy Holloway MD 01/18/2021 R00.2 Palpitations Mendy Holloway MD Plan of Treatment Future Appointment(s):* 05/31/2021 2:15 pm - Angela Savage, BEADWORKER at DR. Mendy Holloway 04/26/2021 - Mendy [...] methimazole therapy would be her best option. Recommendations:#1: Start methimazole 10 mg tablets, 2 by mouth daily She states she is feeling well, appetite is good, no ankle swelling, no SOB * R00.2 Palpitations* Comments:* HR was 131 in office. Does admit to [...] MD THYROID SCAN AND UPTAKE [facility] RE[facility] BASED ON MEDICAL NECESSITY. Created [facility] [facility], [address] [place] [address] [phone]
--- OUTSIDE RECORDS SUMMARY | 2021-05-15 20:38 | CCD | Continuity of Care Document ---
Author Author Kylah GUDINO P.A.-C. Organization Unknown Address [address] [place] [address] Phone [phone] Care Team Providers Care Director Of Business Services Name Role Phone Marleen Norwood DIRECTOR OF OCCUPATIONAL HEALTH AUTM [phone] Problems Description No Information Available Social History Type Date Description Comments Sex Unknown Allergies, Adverse Reactions, Alerts Description No Known Drug Allergies Medications Active Medications SIG Qnty Indications Ordering Provide r Date Memantine HCL 5mg Tablets take one tablet by mouth twice a day 60tabs Meghana Short M.D. 03/26/20 21 Xanax 0.5mg Tablets 1 tab 15 mins prior to the scan; may repeat 30 minutes later if still anxiuos 2tabs Meghana Short M.D. 02/08/2021 Immunizations Description No Information Available Vital Signs Date Vital Result Comment 03/26/2021 6:35am BP Systolic 130 mmHg BP Diastolic 80 mmHg Heart Rate 76 /min Respiratory Rate 16 /min Results Test Acquired Date Facility Test Result H/L Range Note CBC With Differential 03/16/2021 [facility] White Blood Count 6.6 10 Normal 4.0-10.0 Red Blood Count 3.99 10 Low 4.00-5.40 Hemoglobin 12.4 g/dL Normal 12.0-15.5 Hematocrit 38.1 % Normal 36.0-47.0 Mean Corpuscular Volume 95.5 fl Normal 80.0-96.0 Mean Corpuscular Hemoglobin 31.1 pg Normal 27.0-33.0 Mean Corpuscular HGB Conc 32.5 g/dL Normal 32.0-36.5 Red Cell Distribution Width 12.8 % Normal 11.5-14.5 Platelet Count, Automated 180 10 Normal 150-450 Neutrophils % 75.0 % High 36.0-66.0 Lymph % 11.7 % Low 24.0-44.0 Ransom % 10.5 % High 2.0-8.0 Eos % 1.4 % Normal 0.0-3.0 Baso % 1.1 % High 0.0-1.0 Immature Granulocyte % 0.3 % Normal 0-3.0 Nucleated Red Blood Cell % 0.0 % Normal 0-0 Neutrophils # 4.9 10 Normal 1.5-8.5 Lymph # 0.8 10 Low 1.5-5.0 Ransom # 0.7 10 Normal 0.0-0.8 Eos # 0.1 10 Normal 0.0-0.5 Baso # 0.1 10 Normal 0.0-0.2 Comprehensive Metabolic Profil 03/16/2021 [facility] Glucose, Fasting 81 mg/dL Normal 70-100 Blood Urea Nitrogen 42 mg/dL High 7-18 Creatinine For GFR 1.20 mg/dL Normal 0.55-1.30 Glomerular Filtration Rate 46.1 Normal >39 1 Sodium Level 139 mEq/L Normal 136-145 Potassium Serum 4.8 mEq/L Normal 3.5-5.1 Chloride Level 106 mEq/L Normal 98-107 Carbon Dioxide Level 25 mEq/L Normal 21-32 Anion Gap 8 mEq/L Normal 8-16 Calcium Level 9.5 mg/dL Normal 8.8-10.2 Ast/Sgot 20 U/L Normal 7-37 Alt/SGPT 21 U/L Normal 12-78 Alkaline Phosphatase 82 U/L Normal 45-117 Bilirubin,Total 0.6 mg/dL Normal 0.2-1.0 Total Protein 7.0 GM/DL Normal 6.4-8.2 Albumin 3.6 GM/DL Normal 3.2-5.2 Albumin/Globulin Ratio 1.1 Low 1.2-2.2 Lipid Panel 03/16/2021 [facility] Triglycerides Level 121 mg/dL Normal <150 Cholesterol Level 169 mg/dL Normal <200 HDL Cholesterol 46 mg/dL Normal >40 LDL Cholesterol 99 mg/dL Normal <100 Non-HDL-C 123 mg/dL Normal Cholesterol Risk Ratio 3.673 Normal <5 Laboratory test finding 03/16/2021 [facility] Thyroid Stimulating Hormone 4.370 uIU/ML High 0.358-3.740 Total 25(Oh) Vitamin D 51.3 NG/ML Normal 30.0-100.0 Anti Thrombin 3 Panel (Ag/ac) 03/16/2021 [facility] Anti Thrombin 3 Funct Activity 114 % Normal 75-135 2 Anti Thrombin 3 Antigen Immuno 94 % Normal 72-124 3 Laboratory test finding 03/16/2021 [facility] Protein C Functional Activity 111 % Normal 73-180 4 Protein S Functional Activity 91 % Normal 63-140 5 Factor II Prothrombin Gene Dna 03/16/2021 [facility] Factor II Prothrombin Gene An (SEE NOTE) Normal . 6 Factor 5 Leiden Profile 03/16/2021 [facility] Factor V Leiden For Medinet (SEE NOTE) Normal . 7 Factor VIII Panel 03/16/2021 [facility] F8 Activity For F8 Panel 169 % High 56-140 8 F8 Antigen For F8 Panel 209 % High 50-200 9 F8 Activity vWB For F8 Panel 188 % Normal 50-200 Interpretation: Note Normal . 10 Anti-Cardiolipin Antibodies 03/16/2021 [facility] Cardiolipin Iga Antibody <9 APLU/mL Normal 0-11 11 Cardiolipin Igg Antibody <9 GPLU/mL Normal 0-14 12 Cardiolipin Igm Antibody 18 MPLU/mL High 0-12 13 Hemoglobin A1c 03/16/2021 [facility] Hemoglobin A1c 5.3 % Normal 14 Estimated Average Glucose 105 mg/dL Normal 60-110 1 Units are mL/min/1.73 m2 Chronic Kidney Disease Staging per NKF: Stage I & II GFR >=60 Normal to Mildly Decreased Stage III GFR 30-59 Moderately Decreased Stage IV GFR 15-29 Severely Decreased Stage V GFR <15 Very Little GFR Left ESRD GFR <15 on BANQUET MANAGER 2 Direct Xa inhibitor anticoag ulants such as rivaroxaban, apixaban and edoxaban will lead to spuriously elevated antithrombin activity levels possibly masking a deficiency. 3 This test was developed and its performance characteristics determined by [facility]. It has not been cleared or approved by the Food and Drug Administration. 4 Performed at: [address] [id number] Pneumatic Tube Operator: Seth Becerril MD, Phone: [phone] Performed at: [facility] [address] [place] [address] [address] [place], [place] [id number] Pneumatic Tube Operator: Giovanni Mccormack MD, Phone: [phone] Performed at: - [facility] [address], [place], [place] [id number] Pneumatic Tube Operator: Stefani Andres MD, Phone: [phone] Performed at: - [facility] [address] [place], [place] [id number] 706 Pneumatic Tube Operator: Praveena Garcia [facility], Phone: [phone] 5 Protein S activity may be fa lsely increased (masking an abnormal, low result) in patients receiving direct Xa inhibitor (e.g., rivaroxaban, apixaban, edoxaban) or a direct thrombin inhibitor (e.g., dabigatran) anticoagulant treatment due to assay interference by these drugs. 6 NEGATIVE No mutation identified. . Comment: A point mutation ([id number]) in the factor II (prothrombin) gene is the second most common cause of inherited thrombophilia. The incidence of this mutation in the [place] population is about 2% and in the population it is approximately 0.5%. This mutation is rare in the and population. Being heterozygous for a prothrombin mutation increases the risk for developing venous thrombosis about 2 to 3 times above the general population risk. Being homozygous for the prothrombin gene mutation increases the relative risk for venous thrombosis further, although it is not yet known how much further the risk is increased. In women heterozygous for the prothrombin gene mutation, the use of estrogen containing oral contraceptives increases the relative risk of venous thrombosis about 16 times and the risk of developing cerebral thrombosis is also significantly increased. In the prothrombin gene mutation increases risk for venous thrombosis and may increase risk for stillbirth, placental abruption, pre-eclampsia and growth restriction. If the patient possesses two or more congenital or acquired thrombophilic risk factors, the risk for thrombosis may rise to more than the sum of the risk ratios for the individual mutations. This assay detects only the prothrombin [id number] mutation and does not measure genetic abnormalities elsewhere in the genome. Other thrombotic risk factors may be pursued through systematic clinical laboratory analysis. These factors include the R506Q (Leiden) mutation in the Factor V gene, plasma homocysteine levels, as well as testing for deficiencies of antithrombin III, protein C and protein S. . Genetic Counselors are available for health care providers to discuss results at [phone] ([phone]). . Methodology: DNA analysis of the Factor II gene was performed by PCR amplification followed by restriction analysis. The diagnostic sensitivity is >99% for both. All the tests must be combined with clinical information for the most accurate interpretation. Molecular-based testing is highly accurate, but as in any laboratory test, diagnostic errors may occur. . This test was developed and its performance characteristics determined by [facility]. It has not been cleared or approved by the Food and Drug Administration. . Poort SR, et al. Blood. 1996; 88:7387-1399. Hina XIE. Circulation. 2004; 110:e15-e18. Inocencia I, et al. Arterioscler Thromb Vasc Biol. 1999; 19:700-703. . Laura Pereira, PhD, [facility] Mandy Land, PhD, [facility] W. Karolyn Hardy, PhD, [facility] Amanda Toledo, PhD, [facility] Rajiv Mason, PhD, [facility] Jessee Lala, PhD, [facility] 7 Result: Negative (no mutati on found) . Factor V Leiden is a specific mutation (R506Q) in the factor V gene that is associated with an increased risk of venous thrombosis. Factor V Leiden is more resistant to inactivation by activated protein C. As a result, factor V persists in the circulation leading to a mild hyper- coagulable state. The Leiden mutation accounts for 90% - 95% of APC resistance. Factor V Leiden has been reported in patients with deep vein thrombosis, pulmonary embolus, central retinal vein occlusion, cerebral sinus thrombosis and hepatic vein thrombosis. Other risk factors to be considered in the workup for venous thrombosis include the [id number] mutation in the factor II (prothrombin) gene, protein S and C deficiency, and antithrombin deficiencies. Anticardiolipin antibody and lupus anticoagulant analysis may be appropriate for certain patients, as well as homocysteine levels. . Contact your local [facility] for information on how to order additional testing if desired. . . Genetic counselors are available for health care providers to discuss results at [phone] ([phone]). . Methodology: DNA analysis of the Factor V gene was performed by allele- specific PCR. The diagnostic sensitivity and specificity is >99% for both. Molecular-based testing is highly accurate, but as in any laboratory test, diagnostic errors may occur. All test results must be combined with clinical information for the most accurate interpretation. . This test was developed and its performance characteristics determined by [facility]. It has not been cleared or approved by the Food and Drug Administration. . References: José Lorenz (1995). Clin Lab Med 16:169-186. . Laura Pereira, PhD, [facility] Mandy Land, PhD, FAC Rosa Hardy, PhD, FAC Amanda Toledo, PhD, FAC Rajiv Mason, PhD, FAC Jessee Lala PhD, [facility] 8 FVIII activity can increase in a variety of clinical situations including normal , in samples drawn from patients (particularly children) who are visibly stressed at the time of phlebotomy, as acute phase reactants, or in response to certain drug therapies such as DDAVP. Persistently elevated FVIII activity is a risk factor for venous thrombosis as well as recurrence of venous thrombosis. Risk is graded and increases with the degree of elevation. Although elevated FVIII activity has been identified to cluster within families, a genetic basis for the elevation has not yet been elucidated (Br J Haematol. 2012; 157:653-663). 9 VWF may elevate in normal pr egnancy, in samples drawn from patients (particularly children) who are visibly stressed at the time of phlebotomy, as acute phase reactants, or in response to certain drug therapies such as DDAVP. These and other situations may increase levels compared to baseline values. For these reasons, it may be necessary to repeat testing to make a diagnosis of VWD. This test was developed and its performance characteristics determined by [facility]. It has not been cleared or approved by the Food and Drug Administration. 10 --- COAGULATION: VON WILLEBRAND FACTOR ASSESSMENT CURRENT RESULTS ASSESSMENT The VWF:Ag is elevated. The VWF:RCo is normal. The FVIII is elevated. VON WILLEBRAND FACTOR ASSESSMENT CURRENT RESULTS INTERPRETATION - These results are not consistent with a diagnosis of VWD according to the current NHLBI guideline. Persistently elevated FVIII activity is a risk factor for venous thrombosis as well as recurrence of venous thrombosis. Risk is graded and increases with the degree of elevation. Although elevated FVIII activity has been identified to cluster within families, a genetic basis for the elevation has not yet been elucidated (Br J Haematol. 2012; 157(6):653-663). VON WILLEBRAND FACTOR ASSESSMENT - VWF and FVIII may elevate as compared to baseline in samples drawn from patients (particularly children) who are visibly stressed at the time of phlebotomy, as acute phase reactants, or in response to certain drug therapies such as desmopressin. Repeat testing may be necessary before excluding a diagnosis of VWD especially if the clinical suspicion is high for an underlying bleeding disorder. The setting for phlebotomy should be as calm as possible and patients should be encouraged to sit quietly prior to the blood draw. VON WILLEBRAND FACTOR ASSESSMENT DEFINITIONS - VWD - von Willebrand disease; VWF - von Willebrand factor; VWF:Ag - VWF antigen; VWF:RCo - VWF ristocetin cofactor activity; FVIII - factor VIII activity. LEAD GENERATION SPECIALIST: For questions regarding panel interpretation, please contact Romie Khan M.D. at [facility] at . DISCLAIMER These assessments and interpretations are provided as a convenience in support of the physician-patient relationship and are not intended to replace the physician's clinical judgment. They are derived from national guidelines in addition to other evidence and expert opinion. The clinician should consider this information within the context of clinical opinion and the individual patient. SEE GUIDANCE FOR VON WILLEBRAND FACTOR ASSESSMENT: (1) The National Heart, Lung and Blood [place]. The Diagnosis, Evaluation and Management of von Willebrand Disease. [place], [place]: National Institutes of Health Publication 08-5832. 2007. Available at http://www.nhlbi.nih.gov/guidelines/vwd/. (2) Aristides ESPITIA et al. Am J Hematol. 2009; 84(6):366-370. (3) Sivakumar M et al. Haemophilia. 2004;10(3):199-217. (4) Keerthi LI et al. Haemophilia. 2004; 10(3):218-231. 11 Negative: <12 Indeterminate: 12 - 20 Low-Med Positive: >20 - 80 High Positive: >80 12 Negative: <15 Indeterminate: 15 - 20 Low-Med Positive: >20 - 80 High Positive: >80 13 Negative: <13 Indeterminate: 13 - 20 Low-Med Positive: >20 - 80 High Positive: >80 14 REFERENCE RANGES: <=5.6% NORMAL 5.7-6.4% SUGGESTS IMPAIRED GLUCOSE META BOLISM/PREDIABETIC >= 6.5% ABNORMAL Procedures Date Code Description Status 03/26/2021 42390 Office/Outpatient Established Mo d MDM 30-39 Min Completed 03/01/2021 97545 EEG Recording Awake & Asleep Com pleted 03/01/2021 25998 EEG Recording Awake & Asleep Com pleted 02/19/2021 65833 Artery Study Extremity Mult Leve ls Bilateral Completed 02/16/2021 18944 Office/Outpatient Established Hi gh MDM 40-54 Min Completed 02/15/2021 67821 Magnetic Resonance Angiography N jesús W/O Contrast Materials Completed 02/15/2021 19615 Magnetic Resonance Angiography N jesús W/O Contrast Materials Completed 02/15/2021 26498 Magnetic Resonance Angiogtaphy H ead W/O Contrast Material(S) Completed 02/15/2021 89397 Magnetic Resonance Angiogtaphy H ead W/O Contrast Material(S) Completed 02/11/2021 34776 MRI Brain W/O Contrast Completed 02/11/2021 35832 MRI Brain W/O Contrast Completed 02/05/2021 01025 Assessment/Care Planning For Pat ient W/Cognitive Impairment Completed 02/05/2021 81693 Office/Outpatient New Moderate M DM 45-59 Minutes Completed Medical Devices Description No Information Available Encounters Type Date Location Provider Dx Diagnosis Office Visit 03/26/2021 10:30a Main office - [place] Jonathan FloresANuvia-Heidy I63.89 Other cerebral infarction I72.0 Aneurysm of carotid artery 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 03/26/2021 I72.0 Aneurysm of carotid artery Coleen Gudino P.A.-C. 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 03/26/2021 R44.2 Other hallucinations Coleen gil P.A.-C. 03/26/2021 G31.84 Mild cognitive impairment, so st ated Coleen Gudino P.A.-C. 03/26/2021 I73.9 Peripheral vascular disease, uns pecified Coleen Gudino P.A.-C. 03/19/2021 I63.89 Other cerebral infarction Coleen Gudino P.A.-C. 03/19/2021 I72.0 Aneurysm of carotid artery Coleen Gudino P.A.-C. 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 03/19/2021 R44.2 Other hallucinations Coleen gil P.A.-C. 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 02/16/2021 I67.89 Other cerebrovascular disease Ruelas cris Short M.D. 02/16/2021 I72.9 Aneurysm of unspecified site Alessandra Short M.D. 02/16/2021 R41.3 Other amnesia Acacia Murphy 02/16/2021 R44.2 Other hallucinations Meghana Hadleyjamarcus romero M.D. 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 02/05/2021 R26.2 Difficulty in walking, not elsew here classified Meghana Short M.D. Plan of Treatment Future Appointment(s):* 06/03/2021 11:00 am - Jonathan [facility]ackoA.-C. at [facility] 03/26/2021 - Jonathan ChackoA.-C.* I63.89 Other cerebral infarction* Comments:* Continue aspirin. Consider a referral to hematology due to abnormal labs. This will be discussed with Dr Katai Short. * I72.0 Aneurysm of carotid artery* Comments:* She is awaiting an appt with Dr Fletcher. 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 She has more difficulty after her . * R44.2 Other hallucinations* Comments:* Not recurrent. * G31.84 Mild cognitive impairment, so stated* Comments:* Add Namenda 5 mg bid. Aricept not prescribed due to recent weight loss. * I73.9 Peripheral vascular disease, unspecified* Comments:* She is awaiting an appt with Dr Viveros. ANS report will be forwarded. * Follow up:* 2 months Functional Status Description No Information Available Mental Status Description No Information Available Referrals Refer to Reason for Referral Status Appt Date Bebeto Viveros M.D.,F.A.C.C.,F.R.C.P STROKE Created [facility] [address] [place] [address], [place] [address] [phone] Norah Fletcher M.D. ANEURYSM Created Neurosurgery [address] [place] [address] Suite [facility] [place] [address] [phone]
--- OUTSIDE RECORDS SUMMARY | 2021-05-15 20:38 | CCD | Continuity of Care Document ---
Author Author Kylah HOLLOWAY MD Organization Unknown Address [address] [place] [address], [address] [place] [address] Phone [phone] Care Team Providers Care Training Personnel Supervisor Name Role Phone Marleen Norwood AUT [phone] Problems Active Problems Provider Date Essential hypertension [...] H/L Range Note Laboratory test finding 04/23/2021 [place] [address] [phone] T4 - Free 0.12 ng/dL Low 0.93 - 1.70 TSH Highly Sensitive 211.80 uIU/mL High 0.47 - 5.01 Procedures Date Code Description Status 04/26/2021 57284 Phone Evaluation/Management Phys ician 11-20 Mins Completed 01/29/2021 57661 Office/Outpatient Established Mo d MDM 30-39 Min Completed 01/18/2021 40978 Office/Outpatient New High MDM 6 0-74 Minutes [...] Appointment(s):* 05/31/2021 2:15 pm - Angela Savage, GREEN HIDE INSPECTOR at DR. Mendy Holloway 04/26/2021 - Mendy [...] MD THYROID SCAN AND UPTAKE NO A [facility] REQUIRED BASED ON MEDICAL NECESSITY. LS Created [address] [facility], [address] [place] [address] [phone]
--- OUTSIDE RECORDS SUMMARY | 2021-05-15 20:39 | CCD ---
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 Active confirmed 36931101 Problem Vitamin D deficiency E55.9 Active confirmed 27471209 Problem Essential hypertension I10 Active confirmed 58863986 Problem Psoriasis L40.9 Active confirmed 6134588 Problem Hiatal hernia K44.9 Active confirmed 336816 09 Problem Urge incontinence N39.41 Active confirmed 87 896151 Problem Urge incontinence of urine N39.41 Active confirmed 44873359 Problem Hypomagnesemia E83.42 Active confirmed 98566 5004 Problem Adjustment disorder with anxious mood F43.22 Ac tive confirmed 83009109 Problem Serum calcium elevated E83.52 Active confirmed 72664085 Problem Macrocytosis D75.89 Active confirmed 0909330 00 Problem Laryngopharyngeal reflux (LPR) K21.9 Active confir med 836682053 Problem 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 Active conf irmed 26008390 Problem Hyperthyroidism E05.90 Active confirmed 3448 6009 Problem 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 Active confirmed 5652067 Problem Stage 3 chronic kidney disease N18.3 Active confir med 321029685 Problem Generalized osteoarthritis 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 Code:[address]-56) Hives Drug Allergy Active ENCOUNTERS from 1940 to 2021-03-15 Encounter Location Date Provider Diagnosis [facility] [address] [facility] [phone] [place] [address] 13 Mar, 2021 Marleen Cuco Essential hypertension I10 IMMUNIZATIONS Vaccine Route Administration Date Status Influenza [...] for rhinitis for 30 day(s) Jun, Not-Taking Zahl 3 1000 mg 2 capsules Orally twice daily for high triglycerides Not-Taking Vitamin D3 Complete - 25 mg Orally bid Not-Taking Saline Nasal [place] 0.65 % Nasally Not-Taking PROCEDURES No Information RESULTS No Results REASON FOR VISIT REFILL MEDICAL (GENERAL) HISTORY Type Description Date Medical [...] No Information FUNCTIONAL STATUS No Information ASSESSMENTS Encounter Date Diagnosis Assessment Notes Treatment Notes Treatm ent Clinical Notes Mar, Essential hypertension (ICD-10 - I10) PLAN OF TREATMENT Medication Medication Name Sig [...] Insured Coverage Start Date Coverage End Date [facility] SEC [address] [address] [facility] [address] JOBY ROSARIO self MEDICARE Part A and B [address] [facility] [address] [phone] JOBY ROSARIO self
--- OUTSIDE RECORDS SUMMARY | 2021-05-15 20:39 | CCD | Continuity of Care Document ---
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 02/08/2021 Immunizations Description No Information Available Vital Signs Description No Information Available Results Description No Information Available Procedures Date Code Description Status 03/01/2021 24251 EEG Recording Awake & Asleep Com pleted 03/01/2021 33450 EEG Recording Awake & Asleep Com pleted 02/19/2021 73510 Artery Study Extremity Mult Leve ls Bilateral Completed 02/16/2021 28626 Office/Outpatient Established Hi gh MDM 40-54 Min Completed 02/15/2021 13885 Magnetic Resonance Angiography N jesús W/O Contrast Materials Completed 02/15/2021 23023 Magnetic Resonance Angiography N jesús W/O Contrast Materials Completed 02/15/2021 51268 Magnetic Resonance Angiogtaphy H ead W/O Contrast Material(S) Completed 02/15/2021 72779 Magnetic Resonance Angiogtaphy H ead W/O Contrast Material(S) Completed 02/11/2021 51686 MRI Brain W/O Contrast Completed 02/11/2021 46505 MRI Brain W/O Contrast Completed 02/05/2021 90175 Assessment/Care Planning For Pat ient W/Cognitive Impairment Completed 02/05/2021 25887 Office/Outpatient New Moderate M DM 45-59 Minutes Completed Medical Devices Description No Information Available Encounters Type Date Location Provider Dx Diagnosis Office Visit 02/16/2021 3:45p Main office - Althasven Short M.D. 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 02/16/2021 I67.89 Other cerebrovascular disease Ruelas cris Short M.D. 02/16/2021 I72.9 Aneurysm of unspecified site Alessandra Short M.D. 02/16/2021 R41.3 Other amnesia Acacia Murphy 02/16/2021 R44.2 Other hallucinations Meghana romero M.D. 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 02/05/2021 R41.3 Other amnesia Acacia Murphy 02/05/2021 R44.1 Visual hallucinations Meghana barrientos M.D. 02/05/2021 R26.2 Difficulty in walking, not elsew here classified Meghana Han, M.D. Plan of Treatment Future Appointment(s):* 03/19/2021 10:30 am - Coleen Gudino P.A.-C. at Main office - Altha Functional Status Description No Information Available Mental Status Description No Information Available Referrals Refer to Reason for Referral Status Appt Date Bebeto Viveros M.D.,Kay.Juan.CNuviaC.,F.R.C.P STROKE [facility] [address] [place] [address] [phone] Norah Fletcher M.D. ANEURYSM [facility] [address] [place] [address] [phone]
--- OUTSIDE RECORDS SUMMARY | 2021-05-15 20:39 | CCD ---
Author Author [facility] Organization [facility] Address Unknown Phone Unavailable Care Team Providers Care Life Coach Name Role Phone Leonardo Savage MD Unavailable Unavailable Leonardo Savage MD Unavailable Unavailable MollLeonardo wheatley MD Unavailable Unavailable MollLeonardo wheatley MD Unavailable Unavailable Leonardo Savage MD Unavailable Unavailable Leonardo Savage MD Unavailable Unavailable Leonardo Savage MD Unavailable Unavailable Leonardo Savage MD Unavailable Unavailable Leonardo Savage MD Unavailable Unavailable Leonardo Savage MD Unavailable Unavailable Leonardo Savage MD Unavailable Unavailable MollLeonardo wheatley MD Unavailable Unavailable Leonardo Savage MD Unavailable Unavailable Leonardo Savage MD Unavailable Unavailable Leonardo Savage MD Unavailable Unavailable Leonardo Savage MD Unavailable Unavailable Leonardo Savage MD Unavailable Unavailable Leonardo Savage MD Unavailable Unavailable Leonardo Savage MD Unavailable Unavailable Leonardo Savage MD Unavailable Unavailable Leonardo Savage MD Unavailable Unavailable Leonardo Savage MD Unavailable Unavailable Leonardo Savage MD Unavailable Unavailable Leonardo Savage MD Unavailable Unavailable Leonardo Savage MD Unavailable Unavailable Leonardo Savage MD Unavailable Unavailable Leonardo Savage MD Unavailable Unavailable Leonardo Savage MD Unavailable Unavailable Leonardo Savage MD Unavailable Unavailable Leonardo Savage MD Unavailable Unavailable AYE SHARMA MD Unavailable Unavailable EDITH, AYE MD Unavailable Unavailable EDITH, AYE MD Unavailable Unavailable EDITH, AYE MD Unavailable Unavailable EDITH, AYE MD Unavailable Unavailable EDITH, AYE MD Unavailable Unavailable EDITH, AYE MD Unavailable Unavailable EDITH, AYE MD Unavailable Unavailable EDITH, AYE MD Unavailable Unavailable EDITH, AYE MD Unavailable Unavailable EDITH, AYE MD Unavailable Unavailable EDITH, AYE MD Unavailable Unavailable EDITH, AYE MD Unavailable Unavailable EDITH, AYE MD Unavailable Unavailable EDITH, AYE MD Unavailable Unavailable EDITH, AYE MD Unavailable Unavailable EDITH, AYE MD Unavailable Unavailable EDITH, AYE MD Unavailable Unavailable EDITH, AYE MD Unavailable Unavailable EDITH, AYE MD Unavailable Unavailable EDITH, AYE MD Unavailable Unavailable EDITH, AYE MD Unavailable Unavailable EDITH, AYE MD Unavailable Unavailable EDITH, AYE MD Unavailable Unavailable EDITH, AYE MD Unavailable Unavailable EDITH, AYE MD Unavailable Unavailable EDITH, AYE MD Unavailable Unavailable EDITH, AYE MD Unavailable Unavailable EDITH, AYE MD Unavailable Unavailable EDITH, AYE MD Unavailable Unavailable EDITH, AYE MD Unavailable Unavailable EDITH, AYE MD Unavailable Unavailable EDITH, AYE MD Unavailable Unavailable EDITH, AYE MD Unavailable Unavailable EDITH, AYE MD Unavailable Unavailable EDITH, AYE MD Unavailable Unavailable EDITH, AYE MD Unavailable Unavailable EDITH, AYE MD Unavailable Unavailable EDITH, AYE MD Unavailable Unavailable EDITH, AYE MD Unavailable Unavailable EDITH, AYE MD Unavailable Unavailable EDITH, AYE MD Unavailable Unavailable EDITH, AYE MD Unavailable Unavailable Trickey, J Coleen PA Unavailable Unavailable Trickey, J Coleen PA Unavailable Unavailable Trickey, J Coleen PA Unavailable Unavailable Trickey, J Coleen PA Unavailable Unavailable Trickey, J Coleen PA Unavailable Unavailable Trickey, J Coleen PA Unavailable Unavailable Trickey, J Coleen PA Unavailable Unavailable Trickey, J Coleen PA Unavailable Unavailable Trickey, J Coleen PA Unavailable Unavailable Trickey, J Coleen PA Unavailable Unavailable Trickey, J Coleen PA Unavailable Unavailable Trickey, J Coleen PA Unavailable Unavailable Trickey, J Coleen PA Unavailable Unavailable Trickey, J Coleen PA Unavailable Unavailable Trickey, J Coleen PA Unavailable Unavailable Trickey, J Coleen PA Unavailable Unavailable Trickey, J Coleen PA Unavailable Unavailable Trickey, J Coleen PA Unavailable Unavailable Trickey, J Coleen PA Unavailable Unavailable Trickey, J Coleen PA Unavailable Unavailable Trickey, J Coleen PA Unavailable Unavailable Trickey, J Coleen PA Unavailable Unavailable Trickey, J Coleen PA Unavailable Unavailable Trickey, J Coleen PA Unavailable Unavailable Trickey, J Coleen PA Unavailable Unavailable Trickey, J Coleen PA Unavailable Unavailable Trickey, J Coleen PA Unavailable Unavailable Trickey, J Coleen PA Unavailable Unavailable Trickey, J Coleen PA Unavailable Unavailable Trickey, J Coleen PA Unavailable Unavailable Trickey, J Coleen PA Unavailable Unavailable Trickey, J Coleen PA Unavailable Unavailable Trickey, J Coleen PA Unavailable Unavailable Trickey, J Coleen PA Unavailable Unavailable Trickey, J Coleen PA Unavailable Unavailable Trickey, J Coleen PA Unavailable Unavailable Trickey, J Coleen PA Unavailable Unavailable Trickey, J Coleen PA Unavailable Unavailable Trickey, J Coleen PA Unavailable Unavailable Trickey, J Coleen PA Unavailable Unavailable Trickey, J Coleen PA Unavailable Unavailable Trickey, J Coleen PA Unavailable Unavailable Trickey, J Coleen PA Unavailable Unavailable Trickey, J Coleen PA Unavailable Unavailable Trickey, J Coleen PA Unavailable Unavailable Trickey, J Coleen PA Unavailable Unavailable Trickey, J Coleen PA Unavailable Unavailable Trickey, J Coleen PA Unavailable Unavailable Trickey, J Coleen PA Unavailable Unavailable Colton PETER MD Unavailable Unavailable Colton PETER MD Unavailable Unavailable Colton PETER MD Unavailable Unavailable Colton PETER MD Unavailable Unavailable Colton PETER MD Unavailable Unavailable Colton PETER MD Unavailable Unavailable Colton PETER MD Unavailable Unavailable Colton PETER MD Unavailable Unavailable Colton PETER MD Unavailable Unavailable Colton PETER MD Unavailable Unavailable Colton PETER MD Unavailable Unavailable Colton PETER MD Unavailable Unavailable Colton PETER MD Unavailable Unavailable Colton PETER MD Unavailable Unavailable Colton PETER MD Unavailable Unavailable Colton PETER MD Unavailable Unavailable Colton PETER MD Unavailable Unavailable Colton PETER MD Unavailable Unavailable Colton PETER MD Unavailable Unavailable Colton PETER MD Unavailable Unavailable Colton PETER MD Unavailable Unavailable Colton PETER MD Unavailable Unavailable Colton PETER MD Unavailable Unavailable Colton PETER MD Unavailable Unavailable Colton PETER MD Unavailable Unavailable Colton PETER MD Unavailable Unavailable Colton PETERAME Unavailable Unavailable PETER, C GISELLEAME Unavailable Unavailable PETER, C GRAHAME Unavailable Unavailable PETER, C GISELLEAME Unavailable Unavailable PETER, C GISELLEAME Unavailable Unavailable PETER, C GISELLEAME MD Unavailable Unavailable PETER, C GRAHAME MD Unavailable Unavailable PETER C GRAHAME MD Unavailable Unavailable PETER C GRAHAME MD Unavailable Unavailable PETER C GRAHAME MD Unavailable Unavailable PETER, C GISELLEAME Unavailable Unavailable PETER, C GISELLEAME MD Unavailable Unavailable PETER, C GISELLEAME MD Unavailable Unavailable PETER C GRAHAME MD Unavailable Unavailable PETER, C GRAHAME MD Unavailable Unavailable PETER, C GRAHAME Unavailable Unavailable PETER C GRAHAME MD Unavailable Unavailable PETER, C GISELLEAME Unavailable Unavailable PETER, C GISELLEAME Unavailable Unavailable PETER, C GISELLEAME Unavailable Unavailable PETER, C GRAHAME MD Unavailable Unavailable PETER, C GISELLEAME Unavailable Unavailable PETER, C GISELLEAME MD Unavailable Unavailable PETER, C GISELLEAME Unavailable Unavailable PETER, C MARIUM MARIE Unavailable Unavailable PETER, C GISELLEAME Unavailable Unavailable PETERColton ALCANTARAME Unavailable Unavailable PETER, C GISELLEAME Unavailable Unavailable PETER, C GISELLEAME Unavailable Unavailable PETER, C GISELLEAME Unavailable Unavailable PETER, C MARIUM MARIE Unavailable Unavailable PETERColton ALCANTAR MD Unavailable Unavailable PETERColton ALCANTAR MD Unavailable Unavailable PETERColton ALCANTAR MD Unavailable Unavailable PETER, C GISELLEAME MD Unavailable Unavailable RANDI, W HENOK Unavailable Unavailable RANDI, W HENOK Unavailable Unavailable RANDI, W HENOK Unavailable Unavailable RANDI, W HENOK Unavailable Unavailable RANDI, W HENOK Unavailable Unavailable RANDI, W HENOK Unavailable Unavailable RANDI, W HENOK Unavailable Unavailable RANDI, W HENOK Unavailable Unavailable RANDI, W HENOK Unavailable Unavailable RANDI, W HENOK Unavailable Unavailable RANDI, W HENOK Unavailable Unavailable RANDI, W HENOK Unavailable Unavailable RANDI, W HENOK Unavailable Unavailable RANDI, W HENOK Unavailable Unavailable RANDI, W HENOK Unavailable Unavailable RANDI, W HENOK Unavailable Unavailable RANDI, W HENOK Unavailable Unavailable RANDI, W HENOK Unavailable Unavailable RANDI, W HENOK Unavailable Unavailable RANDI, W HENOK Unavailable Unavailable RANDI, W HENOK Unavailable Unavailable RANDI, W HENOK Unavailable Unavailable RANDI, W HENOK Unavailable Unavailable RANDI, W HENOK Unavailable Unavailable RANDI, W HENOK Unavailable Unavailable RANDI, W HENOK Unavailable Unavailable RANDI, W HENOK Unavailable Unavailable RANDI, W HENOK Unavailable Unavailable RANDI, W HENOK Unavailable Unavailable RANDI, W HENOK Unavailable Unavailable RANDI, W HENOK Unavailable Unavailable RANDI, W HENOK Unavailable Unavailable RANDI, W HENOK Unavailable Unavailable RANDI, W HENOK Unavailable Unavailable RANDI, W HENOK Unavailable Unavailable RANDI, W HENOK Unavailable Unavailable RANDI, W HENOK Unavailable Unavailable RANDI, W HENOK Unavailable Unavailable RANDI, W HENOK Unavailable Unavailable Fish, Bonita Brooke MD Unavailable Unavailable Fish, Bonita Brooke MD Unavailable Unavailable Fish, Bonita Brooke MD Unavailable Unavailable Fish, Bonita Brooke MD Unavailable Unavailable Fish, Bonita Brooke MD Unavailable Unavailable Fish, Bonita Brooke MD Unavailable Unavailable Fish, Bonita Brooke MD Unavailable Unavailable Fish, Bonita Brooke MD Unavailable Unavailable Fish, Bonita Brooke MD Unavailable Unavailable Fish, Bonita Brooke MD Unavailable Unavailable Fish, Bonita Brooke MD Unavailable Unavailable Fish, Bonita Brooke MD Unavailable Unavailable Fish, Bonita Brooke MD Unavailable Unavailable Fish, Bonita Brooke MD Unavailable Unavailable Fish, Bonita Brooke MD Unavailable Unavailable Fish, Bonita Brooke MD Unavailable Unavailable Fish, Bonita Brooke MD Unavailable Unavailable Fish, Bonita Brooke MD Unavailable Unavailable Fish, Bonita Brooke MD Unavailable Unavailable Fish, Bonita Brooke MD Unavailable Unavailable FishBonita MD Unavailable Unavailable Fish, Bonita Brooke MD Unavailable Unavailable Fish, Bonita Brooke MD Unavailable Unavailable Fish, Bonita Brooke MD Unavailable Unavailable Fish, Bonita Brooke MD Unavailable Unavailable Fish, Bonita Brooke MD Unavailable Unavailable Fish, Bonita Brooke MD Unavailable Unavailable Fish, Bonita Brooke MD Unavailable Unavailable Jigar, Bonita Brooke MD Unavailable Unavailable Fish, Bonita Brooke MD Unavailable Unavailable Fish, Bonita Brooke MD Unavailable Unavailable Fish, Bonita Brooke MD Unavailable Unavailable Fish, Bonita Brooke MD Unavailable Unavailable Fish, Bonita Brooke MD Unavailable Unavailable Fish, Bonita Brooke MD Unavailable Unavailable Fish, Bonita Brooke MD Unavailable Unavailable Bonita Kimball MD Unavailable Unavailable FishBonita MD Unavailable Unavailable Bonita Kimball MD Unavailable Unavailable Bonita Kimball MD Unavailable Unavailable Fish, Bonita Brooke MD Unavailable Unavailable Fish, Bonita Brooke MD Unavailable Unavailable Fish, Bonita Brooek MD Unavailable Unavailable Fish, Bonita Brooke MD Unavailable Unavailable Fish, Bonita Brooke MD Unavailable Unavailable Jigar, Bonita Brooke MD Unavailable Unavailable Fish, Bonita Brooke MD Unavailable Unavailable Fish, Bonita Brooke MD Unavailable Unavailable Fish, Bonita Brooke MD Unavailable Unavailable Fish, Bonita Brooke MD Unavailable Unavailable Fish, Bonita Brooke MD Unavailable Unavailable Fish, Bonita Brooke MD Unavailable Unavailable Fish, Bonita Brooke MD Unavailable Unavailable Fish, Bonita Brooke MD Unavailable Unavailable Fish, Bonita Brooke MD Unavailable Unavailable Fish, Bonita Brooke MD Unavailable Unavailable Fish, Bonita Brooke MD Unavailable Unavailable Fish, Bonita Brooke MD Unavailable Unavailable Fish, Bonita Brooke MD Unavailable Unavailable Fish, Bonita Brooke MD Unavailable Unavailable Fish, Bonita Brooke MD Unavailable Unavailable Fish, Bonita Brooke MD Unavailable Unavailable Fish, Bonita Brooke MD Unavailable Unavailable Fish, Bonita Brooke MD Unavailable Unavailable Fish, Bonita Brooke MD Unavailable Unavailable Fish, Bonita Brooke MD Unavailable Unavailable Fish, Bonita Brooke MD Unavailable Unavailable Fish, Bonita Brooke MD Unavailable Unavailable Fish, Bonita Brooke MD Unavailable Unavailable Fish, Bonita Brooke MD Unavailable Unavailable Fish, Bonita Brooke MD Unavailable Unavailable Fish, Bonita Brooke MD Unavailable Unavailable Fish, Bonita Brooke MD Unavailable Unavailable Fish, Bonita Brooek MD Unavailable Unavailable Fish, Bonita Brooke MD Unavailable Unavailable Fish, Bonita Brooke MD Unavailable Unavailable Fish, Bonita Brooke MD Unavailable Unavailable Fish, Bonita Brooke MD Unavailable Unavailable Fish, Bonita Brooke MD Unavailable Unavailable Fish, Bonita Brooke MD Unavailable Unavailable Fish, Bonita Brooke MD Unavailable Unavailable Fish, Bonita Brooke MD Unavailable Unavailable Fish, Bonita Brooke MD Unavailable Unavailable Fish, Bonita Brooke MD Unavailable Unavailable Fish, Bonita Brooke MD Unavailable Unavailable Fish, Bonita Brooke MD Unavailable Unavailable Fish, Bonita Brooke MD Unavailable Unavailable Fish, Bonita Brooke MD Unavailable Unavailable Fish, Bonita Brooke MD Unavailable Unavailable Fish, Bonita Brooke MD Unavailable Unavailable Fish, Bonita Brooke MD Unavailable Unavailable Fish, Bonita Brooke MD Unavailable Unavailable Fish, Bonita Brooke MD Unavailable Unavailable Fish, Bonita Brooke MD Unavailable Unavailable Fish, Bonita Brooke MD Unavailable Unavailable Fish, Bonita Brooke MD Unavailable Unavailable Fish, Bonita Brooke MD Unavailable Unavailable Fish, Bonita Brooke MD Unavailable Unavailable Fish, Bonita Brooke MD Unavailable Unavailable Fish, Bonita Brooke MD Unavailable Unavailable Fish, Bonita Brooke MD Unavailable Unavailable Fish, Bonita Brooke MD Unavailable Unavailable Fish, Bonita Brooke MD Unavailable Unavailable Fish, Bonita Brooke MD Unavailable Unavailable Fish, Bonita Brooke MD Unavailable Unavailable Fish, Bonita Brooke MD Unavailable Unavailable Fish, Bonita Brooke MD Unavailable Unavailable Fish, Bonita Brooke MD Unavailable Unavailable Fish, Bonita Brooke MD Unavailable Unavailable Fish, Bonita Brooke MD Unavailable Unavailable Fish, Bonita Brooke MD Unavailable Unavailable Fish, Bonita Brooke MD Unavailable Unavailable Fish, Bonita Brooke MD Unavailable Unavailable Fish, B Mendy MD Unavailable Unavailable Fish, B Mendy MD Unavailable Unavailable Fish, B Mendy MD Unavailable Unavailable Fish, B Mendy MD Unavailable Unavailable Fish, B Mendy MD Unavailable Unavailable Fish, B Mendy MD Unavailable Unavailable Fish, B Mendy MD Unavailable Unavailable Fish, B Mendy MD Unavailable Unavailable Fish, B Mendy MD Unavailable Unavailable Fish, B Mendy MD Unavailable Unavailable Fish, B Mendy MD Unavailable Unavailable Fish, B Mendy MD Unavailable Unavailable Fish, B Mendy MD Unavailable Unavailable Fish, B Mendy MD Unavailable Unavailable Fish, B Mendy MD Unavailable Unavailable Fish, B Mendy MD Unavailable Unavailable Fish, B Mendy MD Unavailable Unavailable Re-disclosure Warning The records that you are about to access may contain information from federally-assisted alcohol or drug abuse programs. If such information is present, then the following federally mandated warning applies: This information has been disclosed to you from records protected by federal confidentiality rules (42 CFR part 2). The federal rules prohibit you from making any further disclosure of this information unless further disclosure is expressly permitted by the written consent of the person to whom it pertains or as otherwise permitted by 42 CFR part 2. A general authorization for the release of medical or other information is NOT sufficient for this purpose. The Federal rules restrict any use of the information to criminally investigate or prosecute any alcohol or drug abuse patient.The records that you are about to access may contain highly sensitive health information, the redisclosure of which is protected by Article 27-F of the [facility] Public Health law. If you continue you may have access to information: Regarding HIV / AIDS; Provided by facilities licensed or operated by the [facility] Office of Mental Health; or Provided by the [facility] Office for People With Developmental Disabilities. If such information is present, then the following [facility] mandated warning applies: This information has been disclosed to you from confidential records which are protected by state law. State law prohibits you from making any further disclosure of this information without the specific written consent of the person to whom it pertains, or as otherwise permitted by law. Any unauthorized further disclosure in violation of state law may result in a fine or usp sentence or both. A general authorization for the release of medical or other information is NOT sufficient authorization for further disc losure. Family History Family Member Name Family Member Gender Family Member Status Date o f Status Description Data Source(s) Unknown Unknown Problem [facility] ([facility], ) Encounters Encounter Providers Location Date Indications Data Source(s ) Outpatient Attender: MARIUM PETER MD [id number] 05/06/2021 12:00:00 AM [facility] Office Visit Attender: Mendy Kimball MD Physical Therapy 04/26 01:45:00 PM EDT [facility] ([facility]) Outpatient Attender: Mendy Kimball MDConsultant: HENOK Solorzano 04/23/2021 02:56:00 PM EDT - 04/23/2021 03:56:00 PM EDT [facility] Unknown [address] [facility] [facility] [address] 04/22/2021 12:00:00 AM EDT eCW1 ([facility]) Unknown [address] [facility] [facility] [address] 2021 12:00:00 AM EDT eCW1 ([facility]) Outpatient Attender: MARIUM PETER MD 04/08/2021 12:00:00 AM [facility] Outpatient Attender: Coleen OBANDO Main office - [facility] 03/26/2021 10:30:00 AM EDT [facility] ([facility]) Unknown [address] [facility] [address] 03/19/2021 12:00:00 AM EDT eCW1 ([facility]) Unknown [address] [facility] [address] 03/15/2021 12:00:00 AM EDT eCW1 ([facility]) Outpatient Attender: AYE SHARMA MD Main office - [facility] 02/16/2021 03:45:00 PM EDT [facility] ([facility], ) [place] [address] [facility] [address] 02/08/2021 12:00:00 AM EDT eCW1 ([facility]) Office Visit Attender: AYE SHARMA MD Main office - [facility] n 02/05/2021 12:30:00 PM EDT [facility] ([facility]) Outpatient Attender: Mendy Kimball MD Physical Therapy 01/29 11:00:00 AM EDT [facility] ([facility]) Unknown [address] [facility] [address] 01/29/2021 12:00:00 AM EDT eCW1 ([facility]) OFFICE OUTPATIENT NEW 60 MINUTES Attender: Mendy Kimball MD Physi blair Therapy 01/18/2021 10:15:00 AM EDT [facility] ([facility]) Unknown [address] [facility] [address] 01/15/2021 12:00:00 AM EDT eCW1 ([facility]) Unknown [address] [facility] [address] 01/12/2021 12:00:00 AM EDT eCW1 ([facility]) Unknown [address] [facility] [address] 01/11/2021 12:00:00 AM EDT eCW1 ([facility]) Outpatient [address] [facility] [address] 01/08/2021 12:00:00 AM EDT eCW1 ([facility]) Unknown [address] [facility] [address] 01/07/2021 12:00:00 AM EDT eCW1 ([facility]) Unknown [address] [facility] [address] 12/29/2020 12:00:00 AM EDT eCW1 ([facility]) Outpatient [address] [facility] [address] 12/25/2020 12:00:00 AM EDT eCW1 ([facility]) Unknown [address] [facility] [address] 12/24/2020 12:00:00 AM EDT eCW1 ([facility]) Unknown [address] [facility] [address] 12/16/2020 12:00:00 AM EDT eCW1 ([facility]) Unknown [address] [facility] [address] 12/10/2020 12:00:00 AM EDT eCW1 ([facility]) Outpatient [address] [facility] [address] 11/13/2020 12:00:00 AM EDT eCW1 ([facility]) Unknown [address] [facility] [address] 11/02/2020 12:00:00 AM EDT eCW1 ([facility]) Outpatient Attender: Cosme Thompson/Amy/Jez/Emma lawrence 10/16/2020 01:30:00 PM EDT [facility] ([facility]) Unknown [address] [facility] [address] 10/12/2020 12:00:00 AM EDT eCW1 ([facility]) Outpatient [address] [facility] [address] 10/08/2020 12:00:00 AM EDT eCW1 ([facility]) Outpatient [address] [facility] [address] 07/28/2020 12:00:00 AM EST eCW1 ([facility]) Immunizations Vaccine Date Status Description Data Source(s) COVID-19 VACCINE Moderna 05/11/2021 12:00:00 AM EST completed [facility] Vaccine Series Complete: YESThis Data wa s Submitted to [facility]. COVID-19 VACCINE Moderna 09/08/2020 12:00:00 AM EST completed [facility] Vaccine Series Complete: YESThis Data wa s Submitted to [facility] [employer]. COVID-19 VACCINE Moderna 08/13/2020 12:00:00 AM EST completed [facility] Vaccine Series Complete: NOThis Data was Submitted to [facility] [employer]. Medications Medication Brand Name Start Date Product Form Dose Route Admi nistrative Instructions Pharmacy Instructions Status Indications Reaction Description Data Source(s) Memantine hydrochloride 5 MG Oral Tablet Memantine HCL 03/26/2021 12:00:00 AM EDT ORAL active MEDENT ([facility], ) Escitalopram 5 MG Oral Tablet ESCITALOPRAM OXALATE 02/08/2021 12 :00:00 AM EDT tablet 30 TAKE ONE TABLET BY MOUTH EVERY D AY TAKE ONE TABLET BY MOUTH EVERY DAY SOLD: 04/08/2021 [facility] Alprazolam 0.5 MG Oral Tablet [Xanax] Xanax 02/08/2021 12:00:00 AM EDT active [facility] ([facility], ) Escitalopram 5 MG Oral Tablet ESCITALOPRAM OXALATE 02/08/2021 12 :00:00 AM EDT tablet 30 TAKE ONE TABLET BY MOUTH EVERY D AY TAKE ONE TABLET BY MOUTH EVERY DAY SOLD: 02/10/2021 [facility] Escitalopram 5 MG Oral Tablet ESCITALOPRAM OXALATE 02/08/2021 12 :00:00 AM EDT tablet 30 TAKE ONE TABLET BY MOUTH EVERY D AY TAKE ONE TABLET BY MOUTH EVERY DAY SOLD: 03/11/2021 [facility] Methimazole 10 MG Oral Tablet Methimazole 01/29/2021 12:00:00 AM EDT ORAL active [facility] ([facility]) 10 mg 01/29/2021 12:00:00 AM EDT tablet 180 TAKE TWO TABLETS BY MOUTH EVERY DAY DIRECTED TAKE TWO TABLETS BY MOUTH EVERY DAY DIRECTED SOLD: 04/08/2021 [facility] 10 mg 01/29/2021 12:00:00 AM EDT tablet 180 TAKE TWO TABLETS BY MOUTH EVERY DAY DIRECTED TAKE TWO TABLETS BY MOUTH EVERY DAY DIRECTED SOLD: 01/30/2021 [facility] 25 mg 01/16/2021 12:00:00 AM EDT tablet 30 TAKE ONE TABLET BY MOUTH AT BEDTIME TAKE ONE TABLET BY MOUTH AT BEDTIME SOLD: 01/23/2021 [facility] 25 mg 01/16/2021 12:00:00 AM EDT tablet 30 TAKE ONE TABLET BY MOUTH AT BEDTIME TAKE ONE TABLET BY MOUTH AT BEDTIME SOLD: 02/23/2021 [facility] Escitalopram 5 MG Oral Tablet ESCITALOPRAM OXALATE 11/14/2020 12 :00:00 AM EDT tablet 30 TAKE ONE TABLET BY MOUTH EVERY D AY TAKE ONE TABLET BY MOUTH EVERY DAY SOLD: 01/04/2021 [facility] 25 mg 11/14/2020 12:00:00 AM EDT tablet 30 TAKE ONE TABLET BY MOUTH DAILY AT BEDTIME NEEDED FOR INSOMNIA TAKE ONE TABLET BY MOUTH DAILY AT BEDTIM E NEEDED FOR INSOMNIA SOLD: 12/17/2020 [facility] 25 mg 11/14/2020 12:00:00 AM EDT tablet 30 TAKE ONE TABLET BY MOUTH DAILY AT BEDTIME NEEDED FOR INSOMNIA TAKE ONE TABLET BY MOUTH DAILY AT BEDTIM E NEEDED FOR INSOMNIA SOLD: 11/16/2020 [facility] Escitalopram 5 MG Oral Tablet ESCITALOPRAM OXALATE 11/14/2020 12 :00:00 AM EDT tablet 30 TAKE ONE TABLET BY MOUTH EVERY D AY TAKE ONE TABLET BY MOUTH EVERY DAY SOLD: 11/16/2020 [facility] Escitalopram 5 MG Oral Tablet ESCITALOPRAM OXALATE 11/14/2020 12 :00:00 AM EDT tablet 30 TAKE ONE TABLET BY MOUTH EVERY D AY TAKE ONE TABLET BY MOUTH EVERY DAY SOLD: 12/17/2020 [facility] Insurance Providers Payer name Policy type / Coverage type Policy ID Covered republican ID Covered republican's relationship to ga Policy Ga Plan Information POMCO [id number] SP [id number] POMCO [id number] SP [id number] MEDICARE [id number] SP [id number] A MEDICARE A [id number] Self [id number] MEDICARE A [id number] Self [id number] A MEDICARE [id number] SP [id number] A POMCO U [id number] Self [id number] POMCO U [id number] Self [id number] [facility] [id number] SP [id number] [facility] [id number] SP [id number] UMR U [id number] Self [id number] UMR U [id number] Self [id number] ANSI-Not a Secondary Insurance [id number] ANSI-Commercial [id number] ANSI-Not a Secondary Insurance [id number] ANSI-Medicare Part B [id number] [facility] Commercial [id number] [id number] Self [id number] Medicare [facility] Medicare Primary [id number] [id number] Self [id number] ANSI-Not a Secondary Insurance [id number] ANSI-Medicare Part B [id number] ANSI-Commercial [id number] ANSI-Medicare Part B [id number] ANSI-Commercial [id number] ANSI-Not a Secondary Insurance [id number] ANSI-Commercial [id number] ANSI-Not a Secondary Insurance [id number] ANSI-Medicare Part B [id number] ANSI-Commercial [id number] ANSI-Medicare Part B [id number] ANSI-Not a Secondary Insurance [id number] [facility] [id number] SP [id number] ANSI-Commercial [id number] ANSI-Medicare Part B [id number] ANSI-Not a Secondary Insurance [id number] ANSI-Medicare Part B [id number] ANSI-Commercial [id number] ANSI-Not a Secondary Insurance [id number] ANSI-Medicare Part B [id number] ANSI-Commercial [id number] ANSI-Not a Secondary Insurance [id number] ANSI-Commercial [id number] ANSI-Medicare Part B [id number] MEDICARE C [id number] S [id number] UMR O [id number] S [id number] MEDICARE C [id number] S [id number] A UMR O [id number] S [id number] ANSI-Medicare Part B [id number] ANSI-Commercial [id number] POMCO [id number] SP [id number] MEDICARE [id number] SP [id number] A POMCO PPO O [id number] S [id number] POMCO [id number] SP [id number] POMCO PPO O [id number] S [id number] POMCO [id number] SP [id number] [facility] Medigap Part B [id number] Self Medicare [place] Medicare Primary [id number] Self POMCO-RECURRING [id number] 18 [id number] UMR -O/P [id number] 18 [id number] MEDICARE PART A -O/P [id number] 18 [id number] [facility] [id number] SP [id number] MEDICARE [id number] SP [id number] [facility] CARE [id number] SP [id number] [facility] [id number] SP [id number] UMR -RECURRING [id number] MEDICARE -RECURRING [id number] 18 [id number] MEDICARE -RECURRING [id number] 18 [id number] ANSI-Medicare Part B [id number] ANSI-Commercial [id number] Problems, Conditions, and Diagnoses Code Display Name Description Problem Type Effective Dates Data Source(s) 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 Diagnosis 04/23/2021 02:56:00 PM EDT [facility] [id number] Essential hypertension Essential hypertension Problem 01/15/2021 12:00:00 AM EDT [facility] ([facility] ) E05.90 [id number] Hyperthyroidism Problem 01/08/2021 12:00:00 AM EDT eCW1 ([facility]) D75.89 [id number] Macrocytosis Problem 01/08/2021 12:00:00 AM EDT eCW1 ([facility]) R41.3 [id number] Memory dysfunction Problem 12/25/2020 12:00: 00 AM EDT eCW1 ([facility]) R41.3 221949370 Memory changes Problem 12/18/2020 12:00:00 A M EDT eCW1 ([facility]) Surgeries/Procedures Procedure Description Date Indications Data Source(s) PHYSICIAN TELEPHONE EVALUATION 11-20 MIN 04/26/2021 12 :00:00 AM EDT [facility] ([facility] ) OFFICE OUTPATIENT VISIT 25 MINUTES 03/26/2021 12:00:00 AM EDT [facility] ([facility] ) ELECTROENCEPHALOGRAM W/REC AWAKE&ASLEEP 03/01/2021 12: 00:00 AM EDT [facility] ([facility] ) ELECTROENCEPHALOGRAM W/REC AWAKE&ASLEEP 03/01/2021 12: 00:00 AM EDT [facility] ([facility] ) NON-INVASIVE PHYSIOLOGIC STUDY EXTREMITY 3 LEVLS 02/19 12:00:00 AM EDT [facility] ([facility] ) OFFICE OUTPATIENT VISIT 40 MINUTES 02/16/2021 12:00:00 AM EDT [facility] ([facility] ) Magnetic Resonance Angiogtaphy Head W/O Contrast Material(S) 02/15/2021 12:00:00 AM EDT [facility] ([facility] ) Magnetic Resonance Angiogtaphy Head W/O Contrast Material(S) 02/15/2021 12:00:00 AM EDT [facility] ([facility] ) Magnetic Resonance Angiography Neck W/O Contrast Materials 02/15/2021 12:00:00 AM EDT [facility] ([facility] Magnetic Resonance Angiography Neck W/O Contrast Materials 02/15/2021 12:00:00 AM EDT [facility] ([facility] ) MRI BRAIN BRAIN STEM W/O CONTRAST MATERIAL 02/11/2021 12:00:00 AM EDT [facility] ([facility] ) MRI BRAIN BRAIN STEM W/O CONTRAST MATERIAL 02/11/2021 12:00:00 AM EDT [facility] ([facility]) OFFICE OUTPATIENT NEW 45 MINUTES 02/05/2021 12:00:00 A M EDT [facility] ([facility] ) Assessment/Care Planning For Patient W/Cognitive Impairment 02/05/2021 12:00:00 AM EDT [facility] ([facility]) OFFICE OUTPATIENT VISIT 25 MINUTES 01/29/2021 12:00:00 AM EDT [facility] ([facility]) OFFICE OUTPATIENT NEW 60 MINUTES 01/18/2021 12:00:00 A M EDT [facility] ([facility]) Results ID Date Data Source [id number] 05/06/2021 01:26:46 PM EDT [facility] Name Value Range Interpretation Code Description Data Madeline rce(s) Supporting Document(s) Progress Note [facility] [id number] lbm [file] [id number]== ID Date Data Source [id number] 04/23/2021 03:04:00 PM EDT [facility] Name Value Range Interpretation Code Description Data Madeline rce(s) Supporting Document(s) Thyroxine (T4) free [Mass/volume] in Serum or Plasma 0.12 ng/dL 0.93- 1.70 [facility] ([facility]) Thyrotropin [Units/volume] in Serum or Plasma 211.80 uIU/mL 0.47-5.01 [facility] ([facility]) ID Date Data Source [id number] 04/23/2021 04:26:00 PM EDT [facility] Name Value Range Interpretation Code Description Data Madeline rce(s) Supporting Document(s) Thyrotropin [Units/volume] in Serum or Plasma by Detec tion limit <= 0.05 mIU/L 211.80 uIU/mL 0.47 - 5.01 H [facility] ID Date Data Source [id number] 04/23/2021 03:56:00 PM EDT [facility] Name Value Range Interpretation Code Description Data Madeline rce(s) Supporting Document(s) Thyroxine (T4) free index in Serum or Plasma by calculation 0.12 NG/DL 0.93 - 1.70 L [facility] ID Date Data Source [id number] 03/16/2021 11:41:00 AM EDT [facility] Name Value Range Interpretation Code Description Data Madeline rce(s) Supporting Document(s) Cardiolipin Iga Antibody Laboratory test result 0-11 [facility] ) <content>Negative: <12</con tent>
<content>Indeterminate: 12 - 20</content>
<content>Low-Med Positive: >20 - 80</content>
<content>High Positive: >80</content>
<content></content> Cardiolipin Igg Antibody Laboratory test result 0-14 [facility] ) <content>Negative: <15</con tent>
<content>Indeterminate: 15 - 20</content>
<content>Low-Med Positive: >20 - 80</content>
<content>High Positive: >80</content>
<content></content> Cardiolipin Igm Antibody 18 MPLU/mL 0-12 [facility] ([facility], ) <content>Negative: <13</con tent>
<content>Indeterminate: 13 - 20</content>
<content>Low-Med Positive: >20 - 80</content>
<content>High Positive: >80</content>
<content></content> ID Date Data Source [id number] 03/16/2021 11:41:00 AM EDT [facility] ([facility], ) Name Value Range Interpretation Code Description Data Madeline rce(s) Supporting Document(s) Laboratory test finding (navigational concept) 169 % 56-140 [facility] ([facility], ) FVIII activity can increase in a variety [...] been elucidated (Br J Haematol. 2012; 157:653-663). Laboratory test finding (navigational concept) 209 % 50-200 [facility] ([facility], ) VWF may elevate in normal , in samples drawn from patients [...] developed and its performance characteristics determined by [employer]. It has not been cleared or approved by the Food and Drug Administration. Laboratory test finding (navigational concept) 188 % 50-200 [facility] ([facility], ) Laboratory test finding (navigational concept) Laboratory test result [facility] ([facility]) COAGULATION: VON WILLEBRAND FACTOR ASSESSMENT CURRENT RESULTS [...] cofactor activity; FVIII - factor VIII activity. 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 at [employer] at . DISCLAIMER These assessments and interpretations [...] (1) The National Heart, Lung and Blood [place]. The Diagnosis, Evaluation and Management of von Willebrand Disease. [employer], MD: National Institutes of Health Publication 08-5832. 2007. Available at http://www.nhlbi.nih.gov/guidelines/vwd/. (2) Aristides ESPITIA et al. Am J Hematol. 2009; 84(6):366-370. (3) Sivakumar M et al. Haemophilia. 2004;10(3):199-217. (4) Keerthi LI et al. Haemophilia. 2004; 10(3):218-231. ID Date Data Source [id number] 03/16/2021 11:41:00 AM EDT [facility] ([facility], ) Name Value Range Interpretation Code Description Data Madeline rce(s) Supporting Document(s) Factor V Leiden For [facility] Laboratory test result [facility] ([facility], ) Result: Negative (no mutation found) . Factor V Leiden is a [...] the workup for venous thrombosis include the [id number] mutation in the factor II (prothrombin) gene, protein S and C deficiency, and antithrombin deficiencies. Anticardiolipin antibody and lupus anticoagulant analysis may be appropriate for certain patients, as well as homocysteine levels. . Contact your local [facility] for information on how to order additional testing if desired. . . Genetic counselors are available for health care providers to discuss results at [phone] ([phone]). . Methodology: DNA analysis of the Factor [...] developed and its performance characteristics determined by [facility]. It has not been cleared or approved by the Food and Drug Administration. . References: José Lorenz (1996). Clin Lab Med 16:169-186. . Laura Pereira, PhD, [facility] Mandy Land, PhD, [facility] Rosa Hardy, PhD, [facility] Amanda Toledo, PhD, [facility] Rajiv Mason, PhD, [facility] Jessee Lala PhD, [facility] ID Date Data Source [id number] 03/16/2021 11:41:00 AM EDT [facility] Name Value Range Interpretation Code Description Data Madeline rce(s) Supporting Document(s) Factor II Prothrombin Gene An Laboratory test result [facility] ([facility], ) NEGATIVE No mutation identified. . Comment: A point mutation ([id number]) in the factor II (prothrombin) gene is [...] mutations. This assay detects only the prothrombin D07587K mutation and does not measure genetic abnormalities [...] health care providers to discuss results at [phone] [facility] ([id number]). . Methodology: DNA analysis of the Factor [...] developed and its performance characteristics determined by [employer]. It has not been cleared or approved by the Food and Drug Administration. . Poort SR, et al. Blood. 1996; 88:2105-1450. Hina XIE. Circulation. 2004; 110:e15-e18. Inocencia I, et al. Arterioscler Thromb Vasc Biol. 1999; 19:700-703. . Laura Pereira, PhD, [facility] Mandy Land, PhD, [facility] Rosa Hardy, PhD, [facility] Amanda Toledo, PhD, [facility] Rajiv Mason, PhD, [facility] Jessee Lala, PhD, FAC ID Date Data Source [id number] 03/16/2021 11:41:00 AM EDT [facility] Name Value Range Interpretation Code Description Data Madeline rce(s) Supporting Document(s) Protein C actual/normal in Platelet poor plasma by Coagulati on assay 111 % 73-180 [facility] ([facility], ) Performed at: [facility] [address] [id number] Staffing Executive: Seth Becerril MD, Phone: [phone] Performed at: [employer] [address] [place], [place], [place] [id number] Staffing Executive: Giovanni Mccormack MD, Phone: [phone] Performed at: [address] [id number] Staffing Executive: Stefani Andres MD, Phone: [phone] Performed at: [facility] [address] [place], [place] [address] 503 Staffing Executive: Praveena Garcia [facility], Phone: [phone] Protein S actual/normal in Platelet poor plasma by Coagulati on assay 91 % 63-140 [facility] ([facility], ) Protein S activity may be falsely increa sed (masking an abnormal, low result) in patients receiving direct Xa inhibitor (e.g., rivaroxaban, apixaban, edoxaban) or a direct thrombin inhibitor (e.g., dabigatran) anticoagulant treatment due to assay interference by these drugs. ID Date Data Source [id number] 03/16/2021 11:41:00 AM EDT [facility] ([facility], ) Name Value Range Interpretation Code Description Data Madeline rce(s) Supporting Document(s) Anti Thrombin 3 Funct Activity 114 % 75-135 [facility] ([facility], ) Direct Xa inhibitor anticoagulants such as rivaroxaban, apixaban and edoxaban will lead to spuriously elevated antithrombin activity levels possibly masking a deficiency. Anti Thrombin 3 Antigen Immuno 94 % 72-124 [facility] ([facility], ) This test was developed and its performa nce characteristics determined by [facility]. It has not been cleared or approved by the Food and Drug Administration. ID Date Data Source [id number] 03/16/2021 11:41:00 AM EDT [facility] ([facility] ) Name Value Range Interpretation Code Description Data Madeline rce(s) Supporting Document(s) Thyrotropin [Units/volume] in Serum or Plasma 4.370 uIU/ML 0.358-3.74 0 [facility] ([facility], ) Calcidiol [Mass/volume] in Serum or Plasma 51.3 ng/mL 30.0-100.0 [facility] ([facility]) ID Date Data Source [id number] 03/16/2021 11:41:00 AM EDT [facility] ([facility]) Name Value Range Interpretation Code Description Data Madeline rce(s) Supporting Document(s) Triglycerides Level 121 mg/dL [facility] ([facility], ) Cholesterol Level 169 mg/dL [facility] ([facility], ) HDL Cholesterol 46 mg/dL [facility] ([facility]) LDL Cholesterol 99 mg/dL [facility] ([facility]) Non-HDL-C 123 mg/dL [facility] ([facility]) Cholesterol Risk Ratio 3.673 [facility] ([facility]) ID Date Data Source [id number] 03/16/2021 11:41:00 AM EDT [facility] ([facility], ) Name Value Range Interpretation Code Description Data Madeline rce(s) Supporting Document(s) Glucose, Fasting 81 mg/dL 70-100 [facility] ([facility], ) Blood Urea Nitrogen 42 mg/dL 7-18 [facility] ([facility], ) Glomerular Filtration Rate 46.1 [facility] ([facility]) <content>Units are mL/min/1.73 m2</content>
<content></content>
<content>Chronic Kidney Disease Staging per NKF:</content>
<content></content>
<content>Stage I & II GFR >=60 Normal to Mildly Decreased</content>
<content>Stage III GFR 30- 59 Moderately Decreased</content>
<content>Stage IV GFR 15-29 Severely Decreased</content>
<content>Stage V GFR <15 Very Little GFR Left</content>
<content>ESRD GFR <15 on CLIENT SERVICE ADMINISTRATOR</content>
<content></content> Creatinine For GFR 1.20 mg/dL 0.55-1.30 [facility] ([facility], ) Potassium Serum 4.8 meq/L 3.5-5.1 [facility] ([facility]) Sodium Level 139 meq/L 136-145 [facility] ([facility]) Chloride Level 106 meq/L 98-107 [facility] ([facility]) Carbon Dioxide Level 25 meq/L 21-32 [facility] ([facility], ) Anion Gap 8 meq/L 8-16 [facility] ([facility]) Calcium Level 9.5 mg/dL 8.8-10.2 [facility] ([facility]) Ast/Sgot 20 U/L 7-37 [facility] ([facility]) Alt/SGPT 21 U/L 12-78 [facility] ([facility]) Alkaline Phosphatase 82 U/L 45-117 [facility] ([facility]) Bilirubin,Total 0.6 mg/dL 0.2-1.0 [facility] ([facility]) Total Protein 7.0 GM/DL 6.4-8.2 [facility] ([facility], ) Albumin 3.6 GM/DL 3.2-5.2 [facility] ([facility]) Albumin/Globulin Ratio 1.1 1.2-2.2 [facility] ([facility]) ID Date Data Source [id number] 03/16/2021 11:41:00 AM EDT [facility] ([facility]) Name Value Range Interpretation Code Description Data Madeline rce(s) Supporting Document(s) Hemoglobin 12.4 g/dL 12.0-15.5 [facility] ([facility], ) White Blood Count 6.6 10 4.0-10.0 [facility] ([facility]) Red Blood Count 3.99 10 4.00-5.40 [facility] ([facility]) Mean Corpuscular Hemoglobin 31.1 pg 27.0-33.0 [facility] ([facility]) Hematocrit 38.1 % 36.0-47.0 [facility] ([facility]) Mean Corpuscular Volume 95.5 fl 80.0-96.0 M [facility] ([facility]) Mean Corpuscular HGB Conc 32.5 g/dL 32.0-36.5 [facility] ([facility]) Red Cell Distribution Width 12.8 % 11.5-14.5 [facility] ([facility]) Platelet Count, Automated 180 10 150-450 [facility] ([facility]) [place] % 10.5 % 2.0-8.0 [facility] ([facility]) Neutrophils % 75.0 % 36.0-66.0 [facility] ([facility]) Lymph % 11.7 % 24.0-44.0 [facility] ([facility]) Immature Granulocyte % 0.3 % 0-3.0 [facility] ([facility]) Eos % 1.4 % 0.0-3.0 [facility] ([facility]) Baso % 1.1 % 0.0-1.0 [facility] ([facility]) Neutrophils # 4.9 10 1.5-8.5 [facility] ([facility]) Lymph # 0.8 10 1.5-5.0 [facility] ([facility]) Nucleated Red Blood Cell % 0.0 % 0-0 [facility] ([facility]) [place] # 0.7 10 0.0-0.8 [facility] ([facility]) Eos # 0.1 10 0.0-0.5 [facility] ([facility]) Baso # 0.1 10 0.0-0.2 [facility] ([facility]) ID Date Data Source [id number] 03/16/2021 11:40:00 AM EDT [facility] Name Value Range Interpretation Code Description Data Madeline rce(s) Supporting Document(s) Hemoglobin A1c 5.3 % [facility] ([facility]) <content>REFERENCE RANGES:</content><br/ ><content></content>
<content><=5.6% NORMAL</content>
<content>5.7-6.4% SUGGESTS IMPAIRED GLUCOSE METABOLISM/PREDIABETIC</content>
<content>>= 6.5% ABNORMAL</content>
<content></content> Estimated Average Glucose 105 mg/dL 60-110 [facility] ([facility]) Procedure Social History Code Duration Value Status Description Data Source(s ) Smoking 04/26/2021 12:00:00 AM EDT Patient has never smoked co mpleted Patient has never smoked [facility] ([facility]) Smoking 01/08/2021 12:00:00 AM EDT Never Smoker completed Never S moker eCW1 ([facility]) Smoking 01/08/2021 12:00:00 AM EDT Never Smoker completed Never S moker eCW1 ([facility]) Smoking 01/08/2021 12:00:00 AM EDT Never Smoker completed Never S moker eCW1 ([facility]) Smoking 01/08/2021 12:00:00 AM EDT Never Smoker completed Never S moker eCW1 ([facility]) Smoking 01/08/2021 12:00:00 AM EDT Never Smoker completed Never S moker eCW1 ([facility]) Smoking 01/08/2021 12:00:00 AM EDT Never Smoker completed Never S moker eCW1 ([facility]) Smoking 01/08/2021 12:00:00 AM EDT Never Smoker completed Never S moker eCW1 ([facility]) Smoking 01/08/2021 12:00:00 AM EDT Never Smoker completed Never S moker eCW1 ([facility]) Smoking 01/08/2021 12:00:00 AM EDT Never Smoker completed Never S moker eCW1 ([facility]) Smoking 01/08/2021 12:00:00 AM EDT Never Smoker completed Never S moker eCW1 ([facility]) Smoking 01/08/2021 12:00:00 AM EDT Never Smoker completed Never S moker eCW1 ([facility]) Smoking 12/25/2020 12:00:00 AM EDT Never Smoker completed Never S moker eCW1 ([facility]) Smoking 12/25/2020 12:00:00 AM EDT Never Smoker completed Never S moker eCW1 ([facility]) Smoking 12/25/2020 12:00:00 AM EDT Never Smoker completed Never S moker eCW1 ([facility]) Smoking 11/13/2020 12:00:00 AM EDT Never Smoker completed Never S moker eCW1 ([facility]) Smoking 11/13/2020 12:00:00 AM EDT Never Smoker completed Never S moker eCW1 ([facility]) Smoking 11/13/2020 12:00:00 AM EDT Never Smoker completed Never S moker eCW1 ([facility]) Smoking 10/08/2020 12:00:00 AM EDT Never Smoker completed Never S moker eCW1 ([facility]) Smoking 10/08/2020 12:00:00 AM EDT Never Smoker completed Never S moker eCW1 ([facility]) Smoking 10/08/2020 12:00:00 AM EDT Never Smoker completed Never S moker eCW1 ([facility]) Smoking 07/28/2020 12:00:00 AM EST Never Smoker completed Never S moker eCW1 ([facility]) Vital Signs ID Date Data Source UNK Name Value Range Interpretation Code Description Data Source(s) Systolic blood pressure 130 mm[Hg] 130 mm[Hg] M EDENT ([facility], ) Diastolic blood pressure 80 mm[Hg] 80 mm[Hg] MEDENT ([facility], ) Heart rate 76 /min 76 /min MEDENT ([facility], ) Respiratory rate 16 /min 16 /min MEDENT ( [facility], ) Body height 57.3 [in_i] 57.3 [in_i] MEDENT ([facility] ) 4'9.30" Systolic blood pressure 136 mm[Hg] 136 mm[Hg] M EDENT ([facility] ) Diastolic blood pressure 80 mm[Hg] 80 mm[Hg] MEDENT ([facility] ) Heart rate 61 /min 61 /min MEDENT ([facility] ) Body weight 108.12 [lb_av] 108.12 [lb_av] MEDEN T ([facility] ) Body mass index (BMI) [Ratio] 23.2 kg/m2 23.2 k g/m2 MEDENT ([facility]) Oxygen saturation in Arterial blood by Pulse oximetry 98 % 98 % MEDENT ([facility]) Body weight 105.19 [lb_av] 105.19 [lb_av] MEDEN T ([facility]) Body mass index (BMI) [Ratio] 22.5 kg/m2 22.5 k g/m2 MEDENT ([facility]) Systolic blood pressure 126 mm[Hg] 126 mm[Hg] M EDENT ([facility]) Diastolic blood pressure 84 mm[Hg] 84 mm[Hg] MEDENT ([facility]) Heart rate 131 /min 131 /min MEDENT ([facility]) Body height 57.3 [in_i] 57.3 [in_i] MEDENT ([facility]) 4'9.30" Body weight 109 [lb_av] 109 [lb_av] eCW1 ([facility]) Body weight 49.44 kg 49.44 kg eCW1 ([facility]) Body height 58 [in_i] 58 [in_i] eCW1 ([facility]) Body mass index (BMI) [Ratio] 22.78 kg/m2 22.78 kg/m2 W1 ([facility]) Heart rate 66 /min 66 /min eCW1 ([facility]) Body temperature 98.6 [degF] 98.6 [degF] eCW1 ( [facility]) Systolic blood pressure 141 mm[Hg] 141 mm[Hg] e CW1 ([facility]) Diastolic blood pressure 64 mm[Hg] 64 mm[Hg] eCW1 ([facility]) Body weight 112.4 [lb_av] 112.4 [lb_av] eCW1 ([facility]) Body height 58 [in_i] 58 [in_i] eCW1 ([facility]) Body mass index (BMI) [Ratio] 23.49 kg/m2 23.49 kg/m2 eCW1 ([facility]) Heart rate 77 /min 77 /min eCW1 ([facility]) Respiratory rate 17 /min 17 /min eCW1 ([facility]) Body temperature 97.5 [degF] 97.5 [degF] eCW1 ( [facility]) Systolic blood pressure 158 mm[Hg] 158 mm[Hg] e CW1 ([facility]) Diastolic blood pressure 71 mm[Hg] 71 mm[Hg] eCW1 ([facility]) Body weight 120 [lb_av] 120 [lb_av] eCW1 ([facility]) Body height 58 [in_i] 58 [in_i] eCW1 ([facility]) Body mass index (BMI) [Ratio] 25.08 kg/m2 25.08 kg/m2 eCW1 ([facility]) Heart rate 18 /min 18 /min eCW1 ([facility]) Respiratory rate 17 /min 17 /min eCW1 ([facility]) Body temperature 97.6 [degF] 97.6 [degF] eCW1 ( [facility]) Systolic blood pressure 173 mm[Hg] 173 mm[Hg] e CW1 ([facility]) Diastolic blood pressure 74 mm[Hg] 74 mm[Hg] eCW1 ([facility]) Systolic blood pressure 145 mm[Hg] 145 mm[Hg] M EDENT ([facility], ) Diastolic blood pressure 65 mm[Hg] 65 mm[Hg] MEDENT ([facility], ) Heart rate 59 /min 59 /min [facility] Oxygen saturation in Arterial blood by Pulse oximetry 99 % 99 % MEDENT ([facility], ) Respiratory rate 18 /min 18 /min MEDENT ( [facility], ) Body temperature 97.9 [degF] 97.9 [degF] MEDENT ([facility], ) Body height 58 [in_i] 58 [in_i] [facility] 4'10" Body weight 123.00 [lb_av] 123.00 [lb_av] MEDEN T ([facility], ) Body mass index (BMI) [Ratio] 25.7 kg/m2 25.7 k g/m2 MEDENT ([facility]) [place] body weight 100 [lb_av] 100 [lb_av] MEDEN T ([facility]) Body weight 55.793 kg 55.793 kg MEDENT ([facility]) Body surface area Derived from formula 1.48 m2 1.48 m2 [facility] Heart rate 65 /min 65 /min eCW1 ([facility]) Respiratory rate 17 /min 17 /min eCW1 ([facility]) Body weight 122.8 [lb_av] 122.8 [lb_av] eCW1 ([facility]) Body height 58 [in_i] 58 [in_i] eCW1 ([facility]) Body mass index (BMI) [Ratio] 25.66 kg/m2 25.66 kg/m2 eCW1 ([facility]) Systolic blood pressure 150 mm[Hg] 150 mm[Hg] e CW1 ([facility]) Diastolic blood pressure 74 mm[Hg] 74 mm[Hg] eCW1 ([facility]) Body temperature 99.1 [degF] 99.1 [degF] eCW1 ( [facility]) Body weight 128 [lb_av] 128 [lb_av] eCW1 ([facility]) Body height 58 [in_i] 58 [in_i] eCW1 ([facility]) Body mass index (BMI) [Ratio] 26.75 kg/m2 26.75 kg/m2 eCW1 ([facility]) Heart rate 62 /min 62 /min eCW1 ([facility]) Respiratory rate 17 /min 17 /min eCW1 ([facility]) Body temperature 98.6 [degF] 98.6 [degF] eCW1 ( [facility]) Systolic blood pressure 151 mm[Hg] 151 mm[Hg] e CW1 ([facility]) Diastolic blood pressure 74 mm[Hg] 74 mm[Hg] eCW1 ([facility])
--- OUTSIDE RECORDS SUMMARY | 2021-05-15 20:39 | CCD | Continuity of Care Document ---
Author Author Kylah MATHEWS Organization Unknown Address [address] [place] [address] Phone [phone] Care Team Providers Care Group Teacher Name Role Phone Marleen Norwood CERTIFIED WELDER AUTM [phone] Problems Description No Information Available Social History [...] Information Available Procedures Date Code Description Status 02/11/2021 09736 MRI Brain W/O Contrast Completed 02/05/2021 00727 Assessment/Care Planning For Pat ient W/Cognitive Impairment Completed 02/05/2021 82399 Office/Outpatient New Moderate M DM 45-59 Minutes Completed Medical Devices Description No Information Available Encounters Type Date Location Provider Dx Diagnosis Office Visit 02/05/2021 12:30p Main office - [place] Short M.D. 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 02/05/2021 R41.3 Other amnesia Acacia Murphy 02/05/2021 R44.1 Visual hallucinations Meghana barrientos M.D. 02/05/2021 R26.2 Difficulty in walking, not elsew here classified Meghana Short M.D. Plan of Treatment Future Appointment(s):* 03/01/2021 2:30 pm - EEG at [facility] * 03/19/2021 10:30 am - Coleen Gudino P.A.-C. at [facility] Functional Status Description No Information Available Mental Status Description No Information Available Referrals Description No Information Available
--- OUTSIDE RECORDS SUMMARY | 2021-05-15 20:39 | CCD | Continuity of Care Document ---
Author Author Kylah MATHEWS Organization Unknown Address [address] [place] [address] Phone [phone] Care Team Providers Care Label Remover Name Role Phone Marleen Norwood SUPERVISOR PIPE MANUFACTURE AUTM [phone] Problems Description No Information Available Social History [...] Available Procedures Date Code Description Status 02/11/2021 66734 MRI Brain W/O Contrast Completed 02/05/2021 25785 Assessment/Care Planning For Pat ient W/Cognitive Impairment Completed 02/05/2021 36885 Office/Outpatient New Moderate M DM 45-59 Minutes Completed Medical Devices Description No Information Available Encounters Type Date Location Provider Dx Diagnosis Office Visit 02/05/2021 12:30p Main office - [place] M.D. 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 at [facility] Functional Status Description No Information Available Mental Status Description No Information Available Referrals Description No Information Available
--- OUTSIDE RECORDS SUMMARY | 2021-05-15 20:39 | CCD | Continuity of Care Document ---
Author Author Sanam/Kylah CHANG Organization Unknown Address [address] [place] [address] Phone [phone] Care Team Providers Care Grain Elevator Operator Name Role Phone Marleen Norwood CAR HOPPER AUTM [phone] Problems Description No Information Available Social History [...] Information Available Procedures Date Code Description Status 02/16/2021 82925 Office/Outpatient Established Hi gh MDM 40-54 Min Completed 02/15/2021 75169 Magnetic Resonance Angiography N jesús W/O Contrast Materials Completed 02/15/2021 67030 Magnetic Resonance Angiography N jesús W/O Contrast Materials Completed 02/15/2021 37608 Magnetic Resonance Angiogtaphy H ead W/O Contrast Material(S) Completed 02/15/2021 62454 Magnetic Resonance Angiogtaphy H ead W/O Contrast Material(S) Completed 02/11/2021 03904 MRI Brain W/O Contrast Completed 02/11/2021 62294 MRI Brain W/O Contrast Completed 02/05/2021 42200 Assessment/Care Planning For Pat ient W/Cognitive Impairment Completed 02/05/2021 43420 Office/Outpatient New Moderate M DM 45-59 Minutes Completed Medical Devices Description No Information Available Encounters Type Date Location Provider Dx Diagnosis Office Visit 02/16/2021 3:45p Main office - [place] M.D. 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 02/16/2021 I67.89 Other cerebrovascular disease [...] Difficulty in walking, not elsew here classified Meghaan Short M.D. Plan of Treatment Future Appointment(s):* 03/01/2021 2:30 pm - EEG at [facility] * 03/19/2021 10:30 am - Coleen Gudino P.A.-C. at [facility] Functional Status Description No Information Available Mental Status Description No Information Available Referrals Description No Information Available
--- OUTSIDE RECORDS SUMMARY | 2021-05-15 20:39 | CCD | Continuity of Care Document ---
Author Author Kylah MATHEWS Organization Unknown Address [address] [place] [address] Phone [phone] Care Team Providers Care Cartographic Aide Name Role Phone Marleen Norwood ASSEMBLY LINE ROBOT OPERATOR AUTM [phone] Problems Description No Information Available Social History [...] Available Procedures Date Code Description Status 02/11/2021 46481 MRI Brain W/O Contrast Completed 02/11/2021 32410 MRI Brain W/O Contrast Completed 02/05/2021 87073 Assessment/Care Planning For Pat ient W/Cognitive Impairment Completed 02/05/2021 57731 Office/Outpatient New Moderate M DM 45-59 Minutes Completed Medical Devices Description No Information Available Encounters Type Date Location Provider Dx Diagnosis Office Visit 02/05/2021 12:30p Main office - [place] Meghana Short M.D. 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 02/05/2021 R41.3 Other amnesia Acacia Murphy 02/05/2021 R44.1 Visual hallucinations Meghana barrientos M.D. 02/05/2021 R26.2 Difficulty in walking, not elsew here classified Meghana Short M.D. Plan of Treatment Future Appointment(s):* 03/01/2021 2:30 pm - EEG at [facility] * 03/19/2021 10:30 am - Coleen Gudino P.A.-C. at [facility] Functional Status Description No Information Available Mental Status Description No Information Available Referrals Description No Information Available
--- OUTSIDE RECORDS SUMMARY | 2021-05-15 20:39 | CCD ---
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 Active confirmed 03844864 Problem Vitamin D deficiency E55.9 Active confirmed 25299930 Problem Essential hypertension I10 Active confirmed 77693802 Problem Psoriasis L40.9 Active confirmed 2402696 Problem Hiatal hernia K44.9 Active confirmed 256897 09 Problem Urge incontinence N39.41 Active confirmed 87 508514 Problem Urge incontinence of urine N39.41 Active confirmed 47281379 Problem Hypomagnesemia E83.42 Active confirmed 90577 5004 Problem Adjustment disorder with anxious mood F43.22 Ac tive confirmed 84645786 Problem Serum calcium elevated E83.52 Active confirmed 33917527 Problem Macrocytosis D75.89 Active confirmed 1149574 00 Problem Laryngopharyngeal reflux (LPR) K21.9 Active confir med 739118794 Problem 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 Active conf irmed 73093471 Problem Hyperthyroidism E05.90 Active confirmed 3448 6009 Problem 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 Active confirmed 8053781 Problem Stage 3 chronic kidney disease N18.3 Active confir med 529710553 Problem Generalized osteoarthritis 715.00 Active confirmed 664179406 Problem CKD (chronic kidney disease), stage III N18.3 Active confirmed 942550197 Problem BECCA (generalized anxiety disorder) F41.1 Activ e confirmed 62575349 Problem Memory dysfunction R41.3 Active confirmed 3 60024521 Problem Memory changes R41.3 Active confirmed 86394 7006 ALLERGIES Allergen (clinical drug ingredient) Drug/Non Drug Allergy do cumented on EMR Reaction Allergy Type Onset Date Status azithromycin Zithromax Z-Prosper([facility] Code:[address]-83) Hives Drug Allergy Active ENCOUNTERS from 1940 to 2021-03-29 Encounter Location Date Provider Diagnosis [facility] [address] [facility] [phone] [place] [address] Mar, Marleen Norwood IMMUNIZATIONS Vaccine Route Administration Date [...] for rhinitis for 30 day(s) Jun, Not-Taking [place] 3 1000 mg 2 capsules Orally twice daily for high triglycerides Not-Taking Vitamin D3 Complete - 25 mg Orally bid Not-Taking Saline Nasal [place] 0.65 % Nasally Not-Taking PROCEDURES No Information RESULTS No Results REASON FOR VISIT Medications MEDICAL (GENERAL) HISTORY Type Description Date Medical [...] MEDICARE Part A and B [address] [facility] [address] [phone] JOBY ROSARIO self R [facility] [address] [address] [facility] [id number] JOBY ROSARIO self
--- OUTSIDE RECORDS SUMMARY | 2021-05-15 20:39 | CCD | Continuity of Care Document ---
Author Author Kylah SHORT M.D. Organization Unknown Address [address] [place] [address] Phone [phone] Care Team Providers Care Undergraduate Internship Name Role Phone Marleen Norwood ASSISTANT WOMEN'S BASKETBALL COACH AUTM [phone] Problems Description No Information Available Social History [...] Information Available Procedures Date Code Description Status 02/15/2021 30558 Magnetic Resonance Angiography N jesús W/O Contrast Materials Completed 02/15/2021 83740 Magnetic Resonance Angiogtaphy H ead W/O Contrast Material(S) Completed 02/11/2021 78130 MRI Brain W/O Contrast Completed 02/11/2021 33689 MRI Brain W/O Contrast Completed 02/05/2021 24405 Assessment/Care Planning For Pat ient W/Cognitive Impairment Completed 02/05/2021 06857 Office/Outpatient New Moderate M DM 45-59 Minutes Completed Medical Devices Description No Information Available Encounters Type Date Location Provider Dx Diagnosis Office Visit 02/05/2021 12:30p Main office - [place] Short M.D. 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 02/05/2021 R41.3 Other amnesia Acacia Murphy 02/05/2021 R44.1 Visual hallucinations Meghana barrientos M.D. 02/05/2021 R26.2 Difficulty in walking, not elsew here classified Meghana Short M.D. Plan of Treatment Future Appointment(s):* 03/01/2021 2:30 pm - EEG at [facility] * 03/19/2021 10:30 am - Coleen Gudino P.A.-C. at [facility] Functional Status Description No Information Available Mental Status Description No Information Available Referrals Description No Information Available
--- OUTSIDE RECORDS SUMMARY | 2021-05-15 20:39 | CCD | Continuity of Care Document ---
Author Author Kylah SHORT M.D. Organization Unknown Address [address] [place] [address] Phone [phone] Care Team Providers Care House Parent Name Role Phone Marleen Norwood TURN DOWN WORKER AUTM [phone] Problems Description No Information Available Social History [...] Information Available Procedures Date Code Description Status 02/19/2021 70879 Artery Study Extremity Mult Leve ls Bilateral Completed 02/16/2021 12141 Office/Outpatient Established Hi gh MDM 40-54 Min Completed 02/15/2021 09559 Magnetic Resonance Angiography N jesús W/O Contrast Materials Completed 02/15/2021 67371 Magnetic Resonance Angiography N jesús W/O Contrast Materials Completed 02/15/2021 68054 Magnetic Resonance Angiogtaphy H ead W/O Contrast Material(S) Completed 02/15/2021 09452 Magnetic Resonance Angiogtaphy H ead W/O Contrast Material(S) Completed 02/11/2021 01954 MRI Brain W/O Contrast Completed 02/11/2021 29362 MRI Brain W/O Contrast Completed 02/05/2021 94525 Assessment/Care Planning For Pat ient W/Cognitive Impairment Completed 02/05/2021 92468 Office/Outpatient New Moderate M DM 45-59 Minutes Completed Medical Devices Description No Information Available Encounters Type Date Location Provider Dx Diagnosis Office Visit 02/16/2021 3:45p Main office - [place] Meghana Short M.D. 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 at [facility] Functional Status Description No Information Available Mental Status Description No Information Available Referrals Description No Information Available
--- OUTSIDE RECORDS SUMMARY | 2021-05-15 20:39 | CCD | Continuity of Care Document ---
Author Author Kylah MATHEWS Organization Unknown Address [address] [place] [address] Phone [phone] Care Team Providers Care Business Data Analyst Name Role Phone Marleen Norwood AVIONICS TEST TECHNICIAN AUTM [phone] Problems Description No Information Available Social History [...] Available Procedures Date Code Description Status 02/16/2021 23342 Office/Outpatient Established Hi gh MDM 40-54 Min Completed 02/15/2021 35534 Magnetic Resonance Angiography N jesús W/O Contrast Materials Completed 02/15/2021 58687 Magnetic Resonance Angiography N jesús W/O Contrast Materials Completed 02/15/2021 36201 Magnetic Resonance Angiogtaphy H ead W/O Contrast Material(S) Completed 02/15/2021 55998 Magnetic Resonance Angiogtaphy H ead W/O Contrast Material(S) Completed 02/11/2021 40694 MRI Brain W/O Contrast Completed 02/11/2021 78585 MRI Brain W/O Contrast Completed 02/05/2021 78186 Assessment/Care Planning For Pat ient W/Cognitive Impairment Completed 02/05/2021 28344 Office/Outpatient New Moderate M DM 45-59 Minutes Completed Medical Devices Description No Information Available Encounters Type Date Location Provider Dx Diagnosis Office Visit 02/16/2021 3:45p [place] M[place] 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 02/05/2021 R41.3 Other amnesia Acacia Murphy 02/05/2021 R44.1 Visual hallucinations Meghana barrientos M.D. 02/05/2021 R26.2 Difficulty in walking, not elsew here classified Meghana Short M.D. Plan of Treatment Future Appointment(s):* 02/19/2021 2:15 pm - Ans/VS at [facility] * 03/01/2021 2:30 pm - EEG at [facility] * 03/19/2021 10:30 am - Coleen Gudino P.A.-C. at [facility] Functional Status Description No Information Available Mental Status Description No Information Available Referrals Description No Information Available
--- OUTSIDE RECORDS SUMMARY | 2021-05-15 20:39 | CCD | Continuity of Care Document ---
Author Author Kylah GUDINO P.A.-C. Organization Unknown Address [address] [place] [id number] Phone [phone] Care Team Providers Care Dolphin Researcher Name Role Phone Marleen Norwood MANAGER OF PATIENT AUTM [phone] Problems Description No Information Available Social History [...] Vital Signs Description No Information Available Results Test Acquired Date Facility Test Result H/L Range Note CBC With Differential 03/16/2021 [facility] White Blood Count 6.6 10 Normal 4.0-10.0 [...] 36.0-66.0 Lymph % 11.7 % Low 24.0-44.0 [place] % 10.5 % High 2.0-8.0 Eos % 1.4 % Normal 0.0-3.0 Baso % 1.1 % High 0.0-1.0 Immature Granulocyte % 0.3 % Normal 0-3.0 Nucleated Red Blood Cell % 0.0 % Normal 0-0 Neutrophils # 4.9 10 Normal 1.5-8.5 Lymph # 0.8 10 Low 1.5-5.0 [place] # 0.7 10 Normal 0.0-0.8 Eos # 0.1 10 Normal 0.0-0.5 Baso # 0.1 10 Normal 0.0-0.2 Comprehensive Metabolic Profil 03/16/2021 [facility] Glucose, Fasting 81 mg/dL Normal 70-100 Blood [...] Ratio 1.1 Low 1.2-2.2 Lipid Panel 03/16/2021 [facility] Triglycerides Level 121 mg/dL Normal <150 Cholesterol Level 169 mg/dL Normal <200 HDL Cholesterol 46 mg/dL Normal >40 LDL Cholesterol 99 mg/dL Normal <100 Non-HDL-C 123 mg/dL Normal Cholesterol Risk Ratio 3.673 Normal <5 Laboratory test finding 03/16/2021 [facility] Thyroid Stimulating Hormone 4.370 uIU/ML High 0.358-3.740 Total 25(Oh) Vitamin D 51.3 NG/ML Normal 30.0-100.0 Anti Thrombin 3 Panel (Ag/ac) 03/16/2021 [facility] Anti Thrombin 3 Funct Activity 114 % Normal 75-135 2 Anti Thrombin 3 Antigen Immuno 94 % Normal 72-124 3 Laboratory test finding 03/16/2021 [facility] Protein C Functional Activity 111 % Normal 73-180 4 Protein S Functional Activity 91 % Normal 63-140 5 Factor II Prothrombin Gene Dna 03/16/2021 [facility] Factor II Prothrombin Gene An (SEE NOTE) Normal . 6 Factor 5 Leiden Profile 03/16/2021 [facility] Factor V Leiden For Medinet (SEE NOTE) Normal . 7 Factor VIII Panel 03/16/2021 [facility] F8 Activity For F8 Panel 169 % High 56-140 8 F8 Antigen For F8 Panel 209 % High 50-200 9 F8 Activity vWB For F8 Panel 188 % Normal 50-200 Interpretation: Note Normal . 10 Anti-Cardiolipin Antibodies 03/16/2021 [facility] Cardiolipin Iga Antibody <9 APLU/mL Normal 0-11 11 Cardiolipin Igg Antibody <9 GPLU/mL Normal 0-14 12 Cardiolipin Igm Antibody 18 MPLU/mL High 0-12 13 Hemoglobin A1c 03/16/2021 [facility] Hemoglobin A1c 5.3 % Normal 14 Estimated Average Glucose 105 mg/dL Normal 60-110 1 Units are mL/min/1.73 m2 Chronic Kidney Disease Staging per NKF: Stage I & II GFR >=60 Normal to Mildly Decreased Stage III GFR 30-59 Moderately Decreased Stage IV GFR 15-29 Severely Decreased Stage V GFR <15 Very Little GFR Left ESRD GFR <15 on [employer]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 3 This test was developed and its performance characteristics determined by [employer]. It has not been cleared or approved by the Food and Drug Administration. 4 Performed at: - [facility] [id number] Plasterer Spot: Seth Becerril MD, Phone: [phone] Performed at: [facility] [address] [place] [address] [address] [place], [place] [id number] Plasterer Spot: Giovanni Mccormack MD, Phone: [phone] Performed at: RN - [facility] [address] [id number] Plasterer Spot: Stefani Andres MD, Phone: [phone] Performed at: TG - [facility] [place] [address] [place], [place] [id number] Plasterer Spot: Praveena Garcia [facility], Phone: [phone] 5 Protein S activity may be fa lsely increased (masking an abnormal, low result) in patients receiving direct Xa inhibitor (e.g., rivaroxaban, apixaban, edoxaban) or a direct thrombin inhibitor (e.g., dabigatran) anticoagulant treatment due to assay interference by these drugs. 6 NEGATIVE No mutation identified. . Comment: A point mutation ([id number]) in the factor II (prothrombin) gene is [...] mutations. This assay detects only the prothrombin [id number] mutation and does not measure genetic abnormalities [...] health care providers to discuss results at [phone]). . Methodology: DNA analysis of the Factor [...] developed and its performance characteristics determined by [facility]. It has not been cleared or approved by the Food and Drug Administration. . Poort SR, et al. Blood. 1996; 88:0553-2131. Hina XIE. Circulation. 2004; 110:e15-e18. Inocencia I, et al. Arterioscler Thromb Vasc Biol. 1999; 19:700-703. . Laura Pereira, PhD, [facility] Mandy Land, PhD, [facility] Rosa Hardy, PhD, [facility] Amanda Toledo, PhD, [facility] Rajiv Mason, PhD, [facility] Jessee Lala, PhD, [facility] 7 Result: Negative (no mutati on found) [...] the workup for venous thrombosis include the [id number] mutation in the factor II (prothrombin) gene, protein S and C deficiency, and antithrombin deficiencies. Anticardiolipin antibody and lupus anticoagulant analysis may be appropriate for certain patients, as well as homocysteine levels. . Contact your local [facility] for information on how to order additional testing if desired. . . Genetic counselors are available for health care providers to discuss results at [phone]). . Methodology: DNA analysis of the Factor [...] developed and its performance characteristics determined by [employer]. It has not been cleared or approved by the Food and Drug Administration. . References: José Lorenz (1995). Clin Lab Med 16:169-186. . Laura Pereira, PhD, FAC Mandy Land, PhD, FAC Rosa Hardy, PhD, FAC Amanda Toledo, PhD, FAC Rajiv Mason, PhD, FAC Jessee Lala PhD, FAC 8 FVIII activity can increase in a [...] developed and its performance characteristics determined by [employer]. It has not been cleared or approved [...] cofactor activity; FVIII - factor VIII activity. PERINATAL SOCIAL WORKER: For questions regarding panel interpretation, please contact Romie Khan M.D. at [employer] at . DISCLAIMER These assessments and interpretations [...] (1) The National Heart, Lung and Blood [place]. The Diagnosis, Evaluation and Management of von Willebrand Disease. Kelley, MD: National Institutes of Health Publication 08-5832. [...] 6.5% ABNORMAL Procedures Date Code Description Status 03/01/2021 88937 EEG Recording Awake & Asleep Com pleted 03/01/2021 44877 EEG Recording Awake & Asleep Com pleted 02/19/2021 78744 Artery Study Extremity Mult Leve ls Bilateral Completed 02/16/2021 76343 Office/Outpatient Established Hi gh MDM 40-54 Min Completed 02/15/2021 68874 Magnetic Resonance Angiography N jesús W/O Contrast Materials Completed 02/15/2021 25664 Magnetic Resonance Angiography N jesús W/O Contrast Materials Completed 02/15/2021 49145 Magnetic Resonance Angiogtaphy H ead W/O Contrast Material(S) Completed 02/15/2021 24181 Magnetic Resonance Angiogtaphy H ead W/O Contrast Material(S) Completed 02/11/2021 27852 MRI Brain W/O Contrast Completed 02/11/2021 94417 MRI Brain W/O Contrast Completed 02/05/2021 73187 Assessment/Care Planning For Pat ient W/Cognitive Impairment Completed 02/05/2021 26704 Office/Outpatient New Moderate M DM 45-59 Minutes Completed Medical Devices Description No Information Available Encounters Type Date Location Provider Dx Diagnosis Office Visit 02/16/2021 3:45p Main [place] M.D. 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 03/26/2021 I72.0 Aneurysm of carotid artery Coleen Gudino P.A.-C. 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 03/26/2021 R44.2 Other hallucinations Coleen JNuvia gil P.A.-C. 03/19/2021 I63.89 Other cerebral infarction Coleen J Nuvia Gudino P.A.-C. 03/19/2021 I72.0 Aneurysm of carotid artery Coleen BrindaMauricio Mcfarlane.A.-C. 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 03/19/2021 R44.2 Other hallucinations Coleen JNuvia gil P.A.-C. 03/01/2021 R41.3 Other amnesia Acacia [...] classified Meghana Short M.D. Plan of Treatment No Information Available Functional Status Description No Information Available Mental Status Description No Information Available Referrals Refer to Dr Reason for Referral Status Appt Date Bebeto Viveros M.D.,F.A.C.C.,F.R.C.P STROKE Created [facility] [address] [place] [address] [phone] Norah Fletcher M.D. ANEURYSM [facility] [address] [place] [address] [phone]
--- OUTSIDE RECORDS SUMMARY | 2021-05-15 21:10 | CCD ---
Author Author [facility] Organization [facility] Address Unknown Phone Unavailable Care Team Providers Care Duck Farmer Name Role Phone Leonardo Savage MD Unavailable [...] Fish, Bonita Brooke MD Unavailable Unavailable Fish, Bnoita Brooke MD Unavailable Unavailable Fish, Bonita Brooke MD Unavailable Unavailable Fish, Bonita Brooke MD Unavailable Unavailable Fish, Bonita Brooek MD Unavailable Unavailable Jigar, Bonita Brooke MD [...] is protected by Article 27-F of the [facility] Public Health law. If you continue you may have access to information: Regarding HIV / AIDS; Provided by facilities licensed or operated by the [facility] Office of Mental Health; or Provided by the [facility] Office for People With Developmental Disabilities. If such information is present, then the following [facility] mandated warning applies: This information has been [...] law may result in a fine or custodial sentence or both. A general authorization for [...] MARIUM PETER MD [id number] 05/06/2021 12:00:00 AM [facility] Office Visit Attender: Mendy Kimball MD Physical Therapy 04/26 01:45:00 PM EDT [facility] ([facility]) Outpatient Attender: Mendy Kimball MDConsultant: HENOK Solorzano 04/23/2021 02:56:00 PM EDT - 04/23/2021 03:56:00 PM EDT [facility] [place] [address] [address] 04/22/2021 12:00:00 AM EDT eCW1 ([facility]) [place] [address] [facility] [address] 2021 12:00:00 AM EDT eCW1 ([facility]) Outpatient Attender: MARIUM PETER MD 04/08/2021 12:00:00 AM [facility] Outpatient Attender: Coleen OBANDO Main office - [facility] 03/26/2021 10:30:00 AM EDT [facility] ([facility]) [place] [address] [facility] [address] 03/19/2021 12:00:00 AM EDT eCW1 ([facility]) [place] [address] [facility] [address] 03/15/2021 12:00:00 AM EDT eCW1 ([facility]) Outpatient Attender: AYE SHARMA MD Main office - [facility] [place][Note 2] n 02/16/2021 03:45:00 PM EDT [facility] ([facility] dodd, ) [place] [address] [facility] [address] 02/08/2021 12:00:00 AM EDT eCW1 ([facility]) Office Visit Attender: AYE SHARMA MD Main office - [facility] [place][Note 2] n 02/05/2021 12:30:00 PM EDT [facility] ([facility]) Outpatient Attender: Mendy Kimball MD Physical Therapy 01/29 11:00:00 AM EDT [facility] ([facility]) [place] [address] [facility] [address] 01/29/2021 12:00:00 AM EDT eCW1 ([facility]) OFFICE OUTPATIENT NEW 60 MINUTES Attender: Mendy Kimball MD Physi blair Therapy 01/18/2021 10:15:00 AM EDT [facility] ([facility]) [place] [address] [facility] [address] 01/15/2021 12:00:00 AM EDT eCW1 ([facility]) [place] [address] [facility] [address] 01/12/2021 12:00:00 AM EDT eCW1 ([facility]) [place] [address] [facility] [address] 01/11/2021 12:00:00 AM EDT eCW1 ([facility]) Outpatient [address] [facility] [address] 01/08/2021 12:00:00 AM EDT eCW1 ([facility]) [place] [address] [facility] [address] 01/07/2021 12:00:00 AM EDT eCW1 ([facility]) [place] [address] [facility] [address] 12/29/2020 12:00:00 AM EDT eCW1 ([facility]) Outpatient [address] [facility] [address] 12/25/2020 12:00:00 AM EDT eCW1 ([facility]) [place] [address] [facility] [address] 12/24/2020 12:00:00 AM EDT eCW1 ([facility]) [place] [address] [facility] [address] 12/16/2020 12:00:00 AM EDT eCW1 ([facility]) [place] [address] [facility] [address] 12/10/2020 12:00:00 AM EDT eCW1 ([facility]) Out[place] [address] [facility] [address] 11/13/2020 12:00:00 AM EDT eCW1 ([facility]) [place] [address] [facility] [address] 11/02/2020 12:00:00 AM EDT eCW1 ([facility]) Outpatient Attender: Cosme Thompson/Amy/Jez/Emma lawrence 10/16/2020 01:30:00 PM EDT [facility] ([facility]) [place] [address] [facility] [address] 10/12/2020 12:00:00 AM EDT eCW1 ([facility]) Out[place] [address] [facility] [address] 10/08/2020 12:00:00 AM EDT eCW1 ([facility]) Outpatient [address] [facility] [address] 07/28/2020 12:00:00 AM EST eCW1 ([facility]) Immunizations Vaccine Date Status Description Data Source(s) COVID-19 VACCINE Moderna 05/11/2021 12:00:00 AM EST completed [facility] Vaccine Series Complete: YESThis Data wa s Submitted to [facility] Via [employer]. COVID-19 VACCINE Moderna 09/08/2020 12:00:00 AM EST completed [facility] Vaccine Series Complete: YESThis Data wa s Submitted to [facility] Via [employer]. COVID-19 VACCINE Moderna 08/13/2020 12:00:00 AM EST completed [facility] Vaccine Series Complete: NOThis Data was Submitted to [facility] Via [employer]. Medications Medication Brand Name Start Date Product [...] Xanax 02/08/2021 12:00:00 AM EDT active [facility] ([facility], ) Escitalopram 5 MG Oral Tablet [...] 01/29/2021 12:00:00 AM EDT ORAL active [facility] ([facility]) 10 mg 01/29/2021 12:00:00 AM EDT [...] type / Coverage type Policy ID Covered constitution party ID Covered constitution party's relationship to ga Policy Ga Plan Information POMCO [id number] SP [id number] POMCO [id number] SP [id number] MEDICARE [id number] SP [id number] A MEDICARE A [id number] Self [id number] MEDICARE A [id number] Self [id number] A MEDICARE [id number] SP [id number] A POMCO U [id number] Self [id number] POMCO U [id number] Self [id number] [facility] [id number] SP [id number] [facility] [id number] SP [id number] UMR U [id number] Self [id number] UMR U [id number] Self [id number] ANSI-Not a Secondary Insurance [id number] ANSI-Commercial [id number] ANSI-Not a Secondary Insurance [id number] ANSI-Medicare Part B [id number] [facility] Commercial [id number] Self [id number] Medicare [facility] Medicare Primary [id number] Self [id number] ANSI-Not a Secondary Insurance [id number] ANSI-Medicare Part B [id number] ANSI-Commercial [id number] ANSI-Medicare Part B [id number] ANSI-Commercial [id number] ANSI-Not a Secondary Insurance [id number] ANSI-Commercial [id number] ANSI-Not a Secondary Insurance [id number] ANSI-Medicare Part B [id number] ANSI-Commercial [id number] ANSI-Medicare Part B [id number] ANSI-Not a Secondary Insurance [id number] [facility] [id number] SP [id number] ANSI-Commercial [id number] ANSI-Medicare Part B [id number] ANSI-Not a Secondary Insurance [id number] ANSI-Medicare Part B [id number] ANSI-Commercial [id number] ANSI-Not a Secondary Insurance [id number] ANSI-Medicare Part B [id number] ANSI-Commercial [id number] ANSI-Not a Secondary Insurance [id number] ANSI-Commercial [id number] ANSI-Medicare Part B [id number] MEDICARE C [id number] S [id number] UMR O [id number] S [id number] MEDICARE C [id number] S [id number] A UMR O [id number] S [id number] ANSI-Medicare Part B [id number] ANSI-Commercial [id number] POMCO [id number] SP [id number] MEDICARE [id number] SP [id number] A POMCO PPO O [id number] S [id number] POMCO [id number] SP [id number] POMCO PPO O [id number] S [id number] POMCO [id number] SP [id number] [employer] Medigap Part B [id number] Self Medicare [place] Primary [id number] Self POMCO-RECURRING [id number] 18 [id number] UMR -O/P [id number] 18 [id number] MEDICARE PART A -O/P [id number] 18 [id number] [facility] [id number] SP [id number] MEDICARE [id number] SP [id number] [facility] CARE [id number] SP [id number] [facility] [id number] SP [id number] UMR -RECURRING [id number] 1 [id number] MEDICARE -RECURRING [id number] 18 [id number] MEDICARE -RECURRING [id number] 18 [id number] ANSI-Medicare Part B [id number] ANSI-Commercial [id number] Problems, Conditions, and Diagnoses Code Display Name Description Problem Type Effective Dates Data Source(s) 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 Diagnosis 04/23/2021 02:56:00 PM EDT [facility] [id number] Essential hypertension Essential hypertension Problem 01/15/2021 12:00:00 AM EDT [facility] ([facility] ) E05.90 [id number] Hyperthyroidism Problem 01/08/2021 12:00:00 AM EDT eCW1 ([facility]) D75.89 [id number] Macrocytosis Problem 01/08/2021 12:00:00 AM EDT eCW1 ([facility]) R41.3 [id number] Memory dysfunction Problem 12/25/2020 12:00: 00 AM EDT eCW1 ([facility]) R41.3 [id number] Memory changes Problem 12/18/2020 12:00:00 A M EDT eCW1 ([facility]) Surgeries/Procedures Procedure Description Date Indications Data Source(s) PHYSICIAN TELEPHONE EVALUATION 11-20 MIN 04/26/2021 12 :00:00 AM EDT [facility] ([facility] ) OFFICE OUTPATIENT VISIT 25 MINUTES 03/26/2021 12:00:00 AM EDT [facility] ([facility] ) ELECTROENCEPHALOGRAM W/REC AWAKE&ASLEEP 03/01/2021 12: 00:00 AM EDT [facility] ([facility] ) ELECTROENCEPHALOGRAM W/REC AWAKE&ASLEEP 03/01/2021 12: 00:00 AM EDT [facility] ([facility] ) NON-INVASIVE PHYSIOLOGIC STUDY EXTREMITY 3 LEVLS 02/19 12:00:00 AM EDT [facility] ([facility] ) OFFICE OUTPATIENT VISIT 40 MINUTES 02/16/2021 12:00:00 AM EDT [facility] ([facility] ) Magnetic Resonance Angiogtaphy Head W/O Contrast Material(S) 02/15/2021 12:00:00 AM EDT [facility] ([facility] Magnetic Resonance Angiogtaphy Head W/O Contrast Material(S) 02/15/2021 12:00:00 AM EDT [facility] ([facility] ) Magnetic Resonance Angiography Neck W/O Contrast Materials 02/15/2021 12:00:00 AM EDT [facility] ([facility] Magnetic Resonance Angiography Neck W/O Contrast Materials 02/15/2021 12:00:00 AM EDT [facility] ([facility] ) MRI BRAIN BRAIN STEM W/O CONTRAST MATERIAL 02/11/2021 12:00:00 AM EDT [facility] ([facility] ) MRI BRAIN BRAIN STEM W/O CONTRAST MATERIAL 02/11/2021 12:00:00 AM EDT [facility] ([facility]) OFFICE OUTPATIENT NEW 45 MINUTES 02/05/2021 12:00:00 A M EDT [facility] ([facility] ) Assessment/Care Planning For Patient W/Cognitive Impairment 02/05/2021 12:00:00 AM EDT [facility] ([facility]) OFFICE OUTPATIENT VISIT 25 MINUTES 01/29/2021 12:00:00 AM EDT [facility] ([facility]) OFFICE OUTPATIENT NEW 60 MINUTES 01/18/2021 12:00:00 A M EDT [facility] ([facility]) Results ID Date Data Source [id number] 05/06/2021 01:26:46 PM EDT [facility] Name Value Range Interpretation Code Description Data Madeline rce(s) Supporting Document(s) Progress Note [facility] [id number] lbm [file] [id number] ID Date Data Source [id number] 04/23/2021 03:04:00 PM EDT [facility] ([facility]) Name Value Range Interpretation Code Description Data Madeline rce(s) Supporting Document(s) Thyroxine (T4) free [Mass/volume] in Serum or Plasma 0.12 ng/dL 0.93- 1.70 [facility] ([facility]) Thyrotropin [Units/volume] in Serum or Plasma 211.80 uIU/mL 0.47-5.01 [facility] ([facility]) ID Date Data Source [id number] 04/23/2021 04:26:00 PM EDT [facility] Name Value Range Interpretation Code Description Data Madeline rce(s) Supporting Document(s) Thyrotropin [Units/volume] in Serum or Plasma by Detec tion limit <= 0.05 mIU/L 211.80 uIU/mL 0.47 - 5.01 H [facility] ID Date Data Source [id number] 04/23/2021 03:56:00 PM EDT [facility] Name Value Range Interpretation Code Description Data Madeline rce(s) Supporting Document(s) Thyroxine (T4) free index in Serum or Plasma by calculation 0.12 NG/DL 0.93 - 1.70 L [facility] ID Date Data Source [id number] 03/16/2021 11:41:00 AM EDT [facility] ([facility], ) Name Value Range Interpretation Code Description Data Madeline rce(s) Supporting Document(s) Cardiolipin Iga Antibody Laboratory test result 0-11 [facility] ([facility], ) <content>Negative: <12</con tent>
<content>Indeterminate: 12 - 20</content>
<content>Low-Med Positive: >20 - 80</content>
<content>High Positive: >80</content>
<content></content> Cardiolipin Igg Antibody Laboratory test result 0-14 [facility] ([facility], ) <content>Negative: <15</con tent>
<content>Indeterminate: 15 - 20</content>
<content>Low-Med Positive: >20 - 80</content>
<content>High Positive: >80</content>
<content></content> Cardiolipin Igm Antibody 18 MPLU/mL 0-12 [facility] ([facility], ) <content>Negative: <13</con tent>
<content>Indeterminate: 13 - 20</content>
<content>Low-Med Positive: >20 - 80</content>
<content>High Positive: >80</content>
<content></content> ID Date Data Source [id number] 03/16/2021 11:41:00 AM EDT [facility] ([facility], ) Name Value Range Interpretation Code Description Data Madeline rce(s) Supporting Document(s) Laboratory test finding (navigational concept) 169 % 56-140 [facility] ([facility], ) FVIII activity can increase in [...] finding (navigational concept) 209 % 50-200 [facility] ([facility], ) VWF may elevate in normal [...] developed and its performance characteristics determined by [employer]. It has not been cleared or approved by the Food and Drug Administration. Laboratory test finding (navigational concept) 188 % 50-200 [facility] ([facility], ) Laboratory test finding (navigational concept) Laboratory test result [facility] ([facility]) COAGULATION: VON WILLEBRAND FACTOR ASSESSMENT CURRENT [...] cofactor activity; FVIII - factor VIII activity. DIRECTOR BUSINESS MANAGEMENT: For questions regarding panel interpretation, please contact Romie Khan M.D. at [employer] at . DISCLAIMER These assessments and interpretations [...] (1) The National Heart, Lung and Blood [place]. The Diagnosis, Evaluation and Management of von Willebrand Disease. [place], [place]: National Institutes of Health Publication 08-5832. 2007. Available at http://www.nhlbi.nih.gov/guidelines/vwd/. (2) Aristides ESPITIA et al. Am J Hematol. 2009; 84(6):366-370. (3) Sivakumar M et al. Haemophilia. 2004;10(3):199-217. (4) Keerthi LI et al. Haemophilia. 2004; 10(3):218-231. ID Date Data Source [id number] 03/16/2021 11:41:00 AM EDT [facility] ([facility], ) Name Value Range Interpretation Code Description Data Madeline rce(s) Supporting Document(s) Factor V Leiden For [facility] Laboratory test result [facility] ([facility], ) Result: Negative (no mutation found) [...] the workup for venous thrombosis include the H44050P mutation in the factor II (prothrombin) gene, protein S and C deficiency, and antithrombin deficiencies. Anticardiolipin antibody and lupus anticoagulant analysis may be appropriate for certain patients, as well as homocysteine levels. . Contact your local [facility] for information on how to order additional testing if desired. . . Genetic counselors are available for health care providers to discuss results at [phone] ([phone]). . Methodology: DNA analysis of the Factor [...] developed and its performance characteristics determined by [facility]. It has not been cleared or approved by the Food and Drug Administration. . References: José Lorenz (1996). Clin Lab Med 16:169-186. . Laura Pereira, PhD, [facility] Mandy Land, PhD, [facility] Rosa Hardy, PhD, [facility] Amanda Toledo, PhD, [facility] Rajiv Mason, PhD, [facility] Jessee Lala PhD, [facility] ID Date Data Source [id number] 03/16/2021 11:41:00 AM EDT [facility] ([facility] ) Name Value Range Interpretation Code Description Data Madeline rce(s) Supporting Document(s) Factor II Prothrombin Gene An Laboratory test result [facility] ([facility], ) NEGATIVE No mutation identified. . Comment: A point mutation ([id number]) in the factor II (prothrombin) gene is [...] mutations. This assay detects only the prothrombin D55956H mutation and does not measure genetic abnormalities [...] health care providers to discuss results at [phone] ([phone]). . Methodology: DNA analysis of the Factor [...] developed and its performance characteristics determined by [employer]. It has not been cleared or approved by the Food and Drug Administration. . Poort SR, et al. Blood. 1996; 88:9618-2206. Hina XIE. Circulation. 2004; 110:e15-e18. Inocencia I, et al. Arterioscler Thromb Vasc Biol. 1999; 19:700-703. . Laura Pereira, PhD, [facility] Mandy Land, PhD, [facility] Rosa Hardy, PhD, [facility] Amanda Toledo, PhD, [facility] Rajiv Mason, PhD, [facility] Jessee Lala, PhD, FAC ID Date Data Source [id number] 03/16/2021 11:41:00 AM EDT [facility] Name Value Range Interpretation Code Description Data Madeline rce(s) Supporting Document(s) Protein C actual/normal in Platelet poor plasma by Coagulati on assay 111 % 73-180 [facility] ([facility], ) Performed at: [facility] [id number] 61 Timekeeping Supervisor: Seth Becerril MD, Phone: [phone] Performed at: [facility] [address] [place], [place], [place] [id number] Timekeeping Supervisor: Giovanni Mccormack MD, Phone: [phone] Performed at: [address] [id number] Timekeeping Supervisor: Stefani Andres MD, Phone: [phone] Performed at: [facility] [address] [place], [place] [address]16 Timekeeping Supervisor: Praveena Garcia [facility], Phone: [phone] Protein S actual/normal in Platelet poor plasma by Coagulati on assay 91 % 63-140 [facility] ([facility], ) Protein S activity may be falsely increa sed (masking an abnormal, low result) in patients receiving direct Xa inhibitor (e.g., rivaroxaban, apixaban, edoxaban) or a direct thrombin inhibitor (e.g., dabigatran) anticoagulant treatment due to assay interference by these drugs. ID Date Data Source [id number] 03/16/2021 11:41:00 AM EDT [facility] ([facility], ) Name Value Range Interpretation Code Description Data Madeline rce(s) Supporting Document(s) Anti Thrombin 3 Funct Activity 114 % 75-135 [facility] ([facility], ) Direct Xa inhibitor anticoagulants such as rivaroxaban, apixaban and edoxaban will lead to spuriously elevated antithrombin activity levels possibly masking a deficiency. Anti Thrombin 3 Antigen Immuno 94 % 72-124 [facility] ([facility] ) This test was developed and its performa nce characteristics determined by [facility]. It has not been cleared or approved by the Food and Drug Administration. ID Date Data Source [id number] 03/16/2021 11:41:00 AM EDT [facility] ([facility] ) Name Value Range Interpretation Code Description Data Madeline rce(s) Supporting Document(s) Thyrotropin [Units/volume] in Serum or Plasma 4.370 uIU/ML 0.358-3.74 0 [facility] ([facility], ) Calcidiol [Mass/volume] in Serum or Plasma 51.3 ng/mL 30.0-100.0 [facility] ([facility]) ID Date Data Source [id number] 03/16/2021 11:41:00 AM EDT [facility] ([facility]) Name Value Range Interpretation Code Description Data Madeline rce(s) Supporting Document(s) Triglycerides Level 121 mg/dL [facility] ([facility], ) Cholesterol Level 169 mg/dL [facility] ([facility], ) HDL Cholesterol 46 mg/dL [facility] ([facility]) LDL Cholesterol 99 mg/dL [facility] ([facility]) Non-HDL-C 123 mg/dL [facility] ([facility]) Cholesterol Risk Ratio 3.673 [facility] ([facility]) ID Date Data Source [id number] 03/16/2021 11:41:00 AM EDT [facility] ([facility], ) Name Value Range Interpretation Code Description Data Madeline rce(s) Supporting Document(s) Glucose, Fasting 81 mg/dL 70-100 [facility] ([facility], ) Blood Urea Nitrogen 42 mg/dL 7-18 [facility] ([facility], ) Glomerular Filtration Rate 46.1 [facility] ([facility]) <content>Units are mL/min/1.73 m2</content>
<content></content>
<content>Chronic Kidney Disease Staging per NKF:</content>
<content></content>
<content>Stage I & II GFR >=60 Normal to Mildly Decreased</content>
<content>Stage III GFR 30- 59 Moderately Decreased</content>
<content>Stage IV GFR 15-29 Severely Decreased</content>
<content>Stage V GFR <15 Very Little GFR Left</content>
<content>ESRD GFR <15 on FORGING MACHINE OPERATOR</content>
<content></content> Creatinine For GFR 1.20 mg/dL 0.55-1.30 [facility] [facility] Potassium Serum 4.8 meq/L 3.5-5.1 [facility] ([facility]) Sodium Level 139 meq/L 136-145 [facility] ([facility]) Chloride Level 106 meq/L 98-107 [facility] ([facility]) Carbon Dioxide Level 25 meq/L 21-32 [facility] ([facility], ) Anion Gap 8 meq/L 8-16 [facility] ([facility]) Calcium Level 9.5 mg/dL 8.8-10.2 [facility] ([facility]) Ast/Sgot 20 U/L 7-37 [facility] ([facility]) Alt/SGPT 21 U/L 12-78 [facility] ([facility]) Alkaline Phosphatase 82 U/L 45-117 [facility] ([facility]) Bilirubin,Total 0.6 mg/dL 0.2-1.0 [facility] ([facility]) Total Protein 7.0 GM/DL 6.4-8.2 [facility] ([facility], ) Albumin 3.6 GM/DL 3.2-5.2 [facility] ([facility]) Albumin/Globulin Ratio 1.1 1.2-2.2 [facility] ([facility]) ID Date Data Source [id number] 03/16/2021 11:41:00 AM EDT [facility] ([facility]) Name Value Range Interpretation Code Description Data Madeline rce(s) Supporting Document(s) Hemoglobin 12.4 g/dL 12.0-15.5 [facility] ([facility], ) White Blood Count 6.6 10 4.0-10.0 [facility] ([facility]) Red Blood Count 3.99 10 4.00-5.40 [facility] ([facility]) Mean Corpuscular Hemoglobin 31.1 pg 27.0-33.0 [facility] ([facility]) Hematocrit 38.1 % 36.0-47.0 [facility] ([facility]) Mean Corpuscular Volume 95.5 fl 80.0-96.0 M EDENT ([facility]) Mean Corpuscular HGB Conc 32.5 g/dL 32.0-36.5 [facility] ([facility]) Red Cell Distribution Width 12.8 % 11.5-14.5 [facility] ([facility]) Platelet Count, Automated 180 10 150-450 [facility] ([facility]) Quay % 10.5 % 2.0-8.0 [facility] ([facility]) Neutrophils % 75.0 % 36.0-66.0 [facility] ([facility]) Lymph % 11.7 % 24.0-44.0 [facility] ([facility]) Immature Granulocyte % 0.3 % 0-3.0 [facility] ([facility]) Eos % 1.4 % 0.0-3.0 [facility] ([facility]) Baso % 1.1 % 0.0-1.0 [facility] ([facility]) Neutrophils # 4.9 10 1.5-8.5 [facility] ([facility]) Lymph # 0.8 10 1.5-5.0 [facility] ([facility]) Nucleated Red Blood Cell % 0.0 % 0-0 [facility] ([facility]) Quay # 0.7 10 0.0-0.8 [facility] ([facility]) Eos # 0.1 10 0.0-0.5 [facility] ([facility]) Baso # 0.1 10 0.0-0.2 [facility] ([facility]) ID Date Data Source [id number] 03/16/2021 11:40:00 AM EDT [facility] Name Value Range Interpretation Code Description Data Madeline rce(s) Supporting Document(s) Hemoglobin A1c 5.3 % [facility] ([facility]) <content>REFERENCE RANGES:</content><br/ ><content></content>
<content><=5.6% NORMAL</content>
<content>5.7-6.4% SUGGESTS IMPAIRED GLUCOSE METABOLISM/PREDIABETIC</content>
<content>>= 6.5% ABNORMAL</content>
<content></content> Estimated Average Glucose 105 mg/dL 60-110 [facility] ([facility]) Procedure Social History Code Duration Value Status Description Data Source(s ) Smoking 04/26/2021 12:00:00 AM EDT Patient has never smoked co mpleted Patient has never smoked [facility] ([facility]) Smoking 01/08/2021 12:00:00 AM EDT Never Smoker completed Never S moker eCW1 ([facility]) Smoking 01/08/2021 12:00:00 AM EDT Never Smoker completed Never S moker eCW1 ([facility]) Smoking 01/08/2021 12:00:00 AM EDT Never Smoker completed Never S moker eCW1 ([facility]) Smoking 01/08/2021 12:00:00 AM EDT Never Smoker completed Never S moker eCW1 ([facility]) Smoking 01/08/2021 12:00:00 AM EDT Never Smoker completed Never S moker eCW1 ([facility]) Smoking 01/08/2021 12:00:00 AM EDT Never Smoker completed Never S moker eCW1 ([facility]) Smoking 01/08/2021 12:00:00 AM EDT Never Smoker completed Never S moker eCW1 ([facility]) Smoking 01/08/2021 12:00:00 AM EDT Never Smoker completed Never S moker eCW1 ([facility]) Smoking 01/08/2021 12:00:00 AM EDT Never Smoker completed Never S moker eCW1 ([facility]) Smoking 01/08/2021 12:00:00 AM EDT Never Smoker completed Never S moker eCW1 ([facility]) Smoking 01/08/2021 12:00:00 AM EDT Never Smoker completed Never S moker eCW1 ([facility]) Smoking 12/25/2020 12:00:00 AM EDT Never Smoker completed Never S moker eCW1 ([facility]) Smoking 12/25/2020 12:00:00 AM EDT Never Smoker completed Never S moker eCW1 ([facility]) Smoking 12/25/2020 12:00:00 AM EDT Never Smoker completed Never S moker eCW1 ([facility]) Smoking 11/13/2020 12:00:00 AM EDT Never Smoker completed Never S moker eCW1 ([facility]) Smoking 11/13/2020 12:00:00 AM EDT Never Smoker completed Never S moker eCW1 ([facility]) Smoking 11/13/2020 12:00:00 AM EDT Never Smoker completed Never S moker eCW1 ([facility]) Smoking 10/08/2020 12:00:00 AM EDT Never Smoker completed Never S moker eCW1 ([facility]) Smoking 10/08/2020 12:00:00 AM EDT Never Smoker completed Never S moker eCW1 ([facility]) Smoking 10/08/2020 12:00:00 AM EDT Never Smoker completed Never S moker eCW1 ([facility]) Smoking 07/28/2020 12:00:00 AM EST Never Smoker completed Never S moker eCW1 ([facility]) Vital Signs ID Date Data Source UNK Name Value Range Interpretation Code Description Data Source(s) Systolic blood pressure 130 mm[Hg] 130 mm[Hg] M EDENT ([facility] ) Diastolic blood pressure 80 mm[Hg] 80 mm[Hg] [facility] ([facility] ) Heart rate 76 /min 76 /min [facility] ([facility] ) Respiratory rate 16 /min 16 /min [facility] ( [facility] ) Body height 57.3 [in_i] 57.3 [in_i] [facility] ([facility] ) 4'9.30" Systolic blood pressure 136 mm[Hg] 136 mm[Hg] M EDENT ([facility] ) Diastolic blood pressure 80 mm[Hg] 80 mm[Hg] [facility] ([facility] ) Heart rate 61 /min 61 /min [facility] ([facility] ) Body weight 108.12 [lb_av] 108.12 [lb_av] MEDEN T ([facility] ) Body mass index (BMI) [Ratio] 23.2 kg/m2 23.2 k g/m2 [facility] ([facility]) Oxygen saturation in Arterial blood by Pulse oximetry 98 % 98 % [facility] ([facility]) Body weight 105.19 [lb_av] 105.19 [lb_av] MEDEN T ([facility]) Body mass index (BMI) [Ratio] 22.5 kg/m2 22.5 k g/m2 [facility] ([facility]) Systolic blood pressure 126 mm[Hg] 126 mm[Hg] M EDENT ([facility]) Diastolic blood pressure 84 mm[Hg] 84 mm[Hg] [facility] ([facility]) Heart rate 131 /min 131 /min [facility] ([facility]) Body height 57.3 [in_i] 57.3 [in_i] [facility] ([facility]) 4'9.30" Body weight 109 [lb_av] 109 [lb_av] eCW1 ([facility]) Body weight 49.44 kg 49.44 kg eCW1 ([facility]) Body height 58 [in_i] 58 [in_i] eCW1 ([facility]) Body mass index (BMI) [Ratio] 22.78 kg/m2 22.78 kg/m2 W1 ([facility]) Heart rate 66 /min 66 /min eCW1 ([facility]) Body temperature 98.6 [degF] 98.6 [degF] eCW1 ( [facility]) Systolic blood pressure 141 mm[Hg] 141 mm[Hg] e CW1 ([facility]) Diastolic blood pressure 64 mm[Hg] 64 mm[Hg] eCW1 ([facility]) Body weight 112.4 [lb_av] 112.4 [lb_av] eCW1 ([facility]) Body height 58 [in_i] 58 [in_i] eCW1 ([facility]) Body mass index (BMI) [Ratio] 23.49 kg/m2 23.49 kg/m2 eCW1 ([facility]) Heart rate 77 /min 77 /min eCW1 ([facility]) Respiratory rate 17 /min 17 /min eCW1 ([facility]) Body temperature 97.5 [degF] 97.5 [degF] eCW1 ( [facility]) Systolic blood pressure 158 mm[Hg] 158 mm[Hg] e CW1 ([facility]) Diastolic blood pressure 71 mm[Hg] 71 mm[Hg] eCW1 ([facility]) Body weight 120 [lb_av] 120 [lb_av] eCW1 ([facility]) Body height 58 [in_i] 58 [in_i] eCW1 ([facility]) Body mass index (BMI) [Ratio] 25.08 kg/m2 25.08 kg/m2 eCW1 ([facility]) Heart rate 18 /min 18 /min eCW1 ([facility]) Respiratory rate 17 /min 17 /min eCW1 ([facility]) Body temperature 97.6 [degF] 97.6 [degF] eCW1 ( [facility]) Systolic blood pressure 173 mm[Hg] 173 mm[Hg] e CW1 ([facility]) Diastolic blood pressure 74 mm[Hg] 74 mm[Hg] eCW1 ([facility]) Systolic blood pressure 145 mm[Hg] 145 mm[Hg] M EDENT ([facility], ) Diastolic blood pressure 65 mm[Hg] 65 mm[Hg] [facility] ([facility], ) Heart rate 59 /min 59 /min [facility] ) Oxygen saturation in Arterial blood by Pulse oximetry 99 % 99 % [facility] ([facility], ) Respiratory rate 18 /min 18 /min [facility] ( [facility], ) Body temperature 97.9 [degF] 97.9 [degF] [facility] ([facility], ) Body height 58 [in_i] 58 [facility]_i[facility] 4'10" Body weight 123.00 [lb_av] 123.00 [lb_av] MEDEN T ([facility], ) Body mass index (BMI) [Ratio] 25.7 kg/m2 25.7 k g/m2 MED[facility] ([facility] [place] body weight 100 [lb_av] 100 [lb_av] MEDEN T ([facility]) Body weight 55.793 kg 55.793 kg [facility] ([facility]) Body surface area Derived from formula 1.48 m2 1.48 m2 [facility] ([facility]) Respiratory rate 17 /min 17 /min eCW1 ([facility]) Body weight 122.8 [lb_av] 122.8 [lb_av] eCW1 ([facility]) Body height 58 [in_i] 58 [in_i] eCW1 ([facility]) Heart rate 65 /min 65 /min eCW1 ([facility]) Systolic blood pressure 150 mm[Hg] 150 mm[Hg] e CW1 ([facility]) Body mass index (BMI) [Ratio] 25.66 kg/m2 25.66 kg/m2 eCW1 ([facility]) Diastolic blood pressure 74 mm[Hg] 74 mm[Hg] eCW1 ([facility]) Body temperature 99.1 [degF] 99.1 [degF] eCW1 ( [facility]) Body weight 128 [lb_av] 128 [lb_av] eCW1 ([facility]) Body height 58 [in_i] 58 [in_i] eCW1 ([facility]) Body mass index (BMI) [Ratio] 26.75 kg/m2 26.75 kg/m2 eCW1 ([facility]) Heart rate 62 /min 62 /min eCW1 ([facility]) Respiratory rate 17 /min 17 /min eCW1 ([facility]) Body temperature 98.6 [degF] 98.6 [degF] eCW1 ( [facility]) Systolic blood pressure 151 mm[Hg] 151 mm[Hg] e CW1 ([facility]) Diastolic blood pressure 74 mm[Hg] 74 mm[Hg] eCW1 ([facility])
--- NOTE | 2021-05-15 21:14 | REPVR ---
PROCEDURE INFORMATION: Exam: CT Head Without Contrast Exam date and time: 05/15/2021 9:04 PM Age: 81 years old Clinical indication: Other: CVA - nursing interventions must not delay CT TECHNIQUE: Imaging protocol: Computed tomography of the head without contrast. Radiation optimization: All CT scans at this facility use at least one of these dose optimization techniques: automated exposure control; mA and/or kV adjustment per patient size (includes targeted exams where dose is matched to clinical indication); or iterative reconstruction. Other technique: STROKE PROTOCOL was implemented. COMPARISON: CT Head without contrast 01/10/2021 4:00 PM FINDINGS: Brain: There are global involutional changes of the brain which are in keeping with the patient's age. Periventricular hypodensities are nonspecific but most likely reflect chronic microvascular ischemic disease. There is no acute intracranial hemorrhage or abnormal extra-axial fluid collection identified. There is no intracranial mass effect or shift of midline structures. The cuenca-white differentiation is preserved throughout. Cerebral ventricles: There is no sulcal or ventricular effacement. The basilar cisterns are open. No hydrocephalus. Paranasal sinuses: Visualized sinuses are unremarkable. No fluid levels. Mastoid air cells: There is mild partial opacification of the left mastoid air cells. 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 Bones/joints: No calvarial fracture or destructive osseous lesions are seen. IMPRESSION: 1. No acute intracranial pathology identified by CT. 2. Small left mastoid effusion. ASSESSMENT: ASPECTS ([place] Stroke Program Early CT Score) is 10. Electronically signed by: Kylah Arana On 05/15/2021 21:14:05 PM
--- NOTE | 2021-05-15 21:15 | REPVR ---
PROCEDURE INFORMATION: Exam: XR Chest Exam date and time: 05/15/2021 9:11 PM Age: 81 years old Clinical indication: Other: CVA TECHNIQUE: Imaging protocol: XR of the chest. Views: 1 view. COMPARISON: CR PORTABLE CHEST X-RAY 01/10/2021 3:38 PM FINDINGS: Lungs: No alveolar infiltrate is seen. Pleural spaces: No pleural effusion. No pneumothorax identified. Heart/Mediastinum: Cardiomegaly. Bones/joints: Unremarkable. IMPRESSION: 1. Cardiomegaly. 2. No infiltrate or pleural effusion. Electronically signed by: Kylah Arana On 05/15/2021 21:14:49 PM
[2021-05-15] MEDS ORDERED: ASPI81CH33 PO (21:33)
[2021-05-15] MEDS ORDERED: MEMA1TAB3 PO (21:33)
[2021-05-15 21:38] LABS: BASO # 0.1 10^3/uL (0.0-0.2); BASO % 0.9 % (0.0-1.0); EOS # 0.2 10^3/uL (0.0-0.5); EOS % 2.4 % (0.0-3.0); HEMATOCRIT 33.9 % (36.0-47.0); HEMOGLOBIN 11.7 g/dl (12.0-15.5); LYMPH # 0.7 10^3/uL (1.5-5.0); LYMPH % 10.6 % (24.0-44.0); MEAN CORPUSCULAR HEMOGLOBIN 32.6 pg (27.0-33.0); MEAN CORPUSCULAR HGB CONC 34.5 g/dl (32.0-36.5); MEAN CORPUSCULAR VOLUME 94.4 fl (80.0-96.0); MONO # 1.3 10^3/uL (0.0-0.8); MONO % 20.9 % (2.0-8.0); NEUTROPHILS # 4.1 10^3/uL (1.5-8.5); PLATELET COUNT, AUTOMATED 139 10^3/uL (150-450); RED BLOOD COUNT 3.59 10^6/uL (4.00-5.40); WHITE BLOOD COUNT 6.4 10^3/uL (4.0-10.0)
[2021-05-15 22:19] LABS: ALBUMIN 3.7 GM/DL (3.2-5.2); ALT/SGPT 37 U/L (12-78); BILIRUBIN,DIRECT 0.2 MG/DL (0.0-0.2); BILIRUBIN,TOTAL 0.7 MG/DL (0.2-1.0); BLOOD UREA NITROGEN 52 MG/DL (7-18); CALCIUM LEVEL 10.5 MG/DL (8.8-10.2); CARBON DIOXIDE LEVEL 23 MEQ/L (21-32); CHLORIDE LEVEL 106 MEQ/L (98-107); CK-MB VALUE MASS < 1.0 NG/ML (<3.6); CPK CREATINE PHOSPHOKINASE 29 U/L (26-192); CREATININE FOR GFR 1.08 MG/DL (0.55-1.30); FREE T4 5.48 NG/DL (0.76-1.46); GLUCOSE, FASTING 95 MG/DL (70-100); MAGNESIUM LEVEL 1.9 MG/DL (1.8-2.4); MB/CK RELATIVE INDEX 3.45 (< OR =4); POTASSIUM SERUM 4.5 MEQ/L (3.5-5.1); SODIUM LEVEL 139 MEQ/L (136-145); TROPONIN I < 0.02 NG/ML (< 0.10)
[2021-05-15] MEDS ORDERED: NS 1,000 ML IV ONE (22:35)
[2021-05-15] MEDS ORDERED: METH10TA PO (23:23)
[2021-05-15 23:30] VITALS: BP 151/74
--- NOTE | 2021-05-16 20:04 | ECGEPIP ---
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
--- NOTE | 2021-05-18 19:36 | ED PDOC ---
Post-Departure Follow-Up radiology report faxed to consuelo oneal Sarah MD May 18, 2021 19:36
== END 2021-05-15 23:41 | disposition home or self-care (01) ==
LOC: M ED 20:25
DX: E05.90 Thyrotoxicosis, unspecified without thyrotoxic crisis or storm (principal); R44.1 Visual hallucinations; I10 Essential (primary) hypertension; E78.5 Hyperlipidemia, unspecified; F03.90 Unspecified dementia, unspecified severity, without behavioral disturbance, psychotic disturbance, mood disturbance, and anxiety; Z79.899 Other long term (current) drug therapy; Z79.82 Long term (current) use of aspirin; Z88.1 Allergy status to other antibiotic agents; Z88.2 Allergy status to sulfonamides

== ENCOUNTER → 2021-05-26 | Outpatient (CLI) | payer MEDICARE, OTHER ==
[~2021-05-26] MED LIST changes: +ASPI81CH33 PO; +MEMA1TAB3 PO; +METH10TA PO
[2021-05-26 17:16] LABS: FREE T4 1.29 NG/DL (0.76-1.46); THYROID STIMULATING HORMONE 0.123 uIU/ML (0.358-3.740)
== END ==
LOC: M LAB 14:27
PROVIDERS: ATTEND Internal Medicine Endocrinology, Diabetes & Metabolism
DX: E05.00 Thyrotoxicosis with diffuse goiter without thyrotoxic crisis or storm (principal)

== ENCOUNTER → 2021-07-20 | Outpatient (CLI) | payer MEDICARE, OTHER ==
[~2021-07-20] MED LIST changes: +MULT-90 PO
[2021-07-20 13:31] LABS: FREE T4 0.73 NG/DL (0.76-1.46); THYROID STIMULATING HORMONE 1.79 uIU/ML (0.358-3.740)
== END ==
LOC: M LAB 09:31
PROVIDERS: ATTEND Internal Medicine Endocrinology, Diabetes & Metabolism
DX: E05.00 Thyrotoxicosis with diffuse goiter without thyrotoxic crisis or storm (principal)

== ENCOUNTER → 2021-08-16 | Outpatient (CLI) | payer MEDICARE, OTHER ==
[2021-08-16 15:13] LABS: FREE T4 2.71 NG/DL (0.76-1.46); THYROID STIMULATING HORMONE 0.074 uIU/ML (0.358-3.740)
== END ==
LOC: M LAB 13:35
PROVIDERS: ATTEND Internal Medicine Endocrinology, Diabetes & Metabolism
DX: E05.00 Thyrotoxicosis with diffuse goiter without thyrotoxic crisis or storm (principal)

== ENCOUNTER → 2021-08-25 | Outpatient (REF) | payer MEDICARE, OTHER | LOC: M LAB REF 16:50 | PROVIDERS: ATTEND Nurse Practitioner Family | DX: N18.32 Chronic kidney disease, stage 3b (principal) ==

== ENCOUNTER → 2021-09-08 | Outpatient (CLI) | payer MEDICARE, OTHER ==
[2021-09-08 13:10] LABS: FREE T4 2.16 NG/DL (0.76-1.46); THYROID STIMULATING HORMONE 0.02 uIU/ML (0.358-3.740)
== END ==
LOC: M LAB 11:54
PROVIDERS: ATTEND Internal Medicine Endocrinology, Diabetes & Metabolism
DX: E05.00 Thyrotoxicosis with diffuse goiter without thyrotoxic crisis or storm (principal)

== ENCOUNTER → 2021-10-26 | Outpatient (CLI) | payer MEDICARE, OTHER ==
[2021-10-26 13:42] LABS: FREE T4 1.45 NG/DL (0.76-1.46); THYROID STIMULATING HORMONE 0.084 uIU/ML (0.358-3.740)
== END ==
LOC: M LAB 12:12
PROVIDERS: ATTEND Internal Medicine Endocrinology, Diabetes & Metabolism
DX: E05.00 Thyrotoxicosis with diffuse goiter without thyrotoxic crisis or storm (principal)

== ENCOUNTER → 2021-12-07 | Outpatient (CLI) | payer MEDICARE, OTHER ==
[2021-12-07 17:37] LABS: FREE T4 1.4 NG/DL (0.76-1.46); THYROID STIMULATING HORMONE 0.086 uIU/ML (0.358-3.740)
== END ==
LOC: M LAB 15:58
PROVIDERS: ATTEND Internal Medicine Endocrinology, Diabetes & Metabolism
DX: E05.00 Thyrotoxicosis with diffuse goiter without thyrotoxic crisis or storm (principal)

== ENCOUNTER → 2022-04-06 | Outpatient (CLI) | payer MEDICARE, OTHER ==
[~2022-04-06] MED LIST changes: +CARV3.12; +MEMA1TAB3
[2022-04-06 15:01] LABS: FREE T4 1.39 NG/DL (0.76-1.46); THYROID STIMULATING HORMONE 0.101 uIU/ML (0.358-3.740)
== END ==
LOC: M LAB 12:50
PROVIDERS: ATTEND Internal Medicine Endocrinology, Diabetes & Metabolism
DX: E05.00 Thyrotoxicosis with diffuse goiter without thyrotoxic crisis or storm (principal)

== ENCOUNTER → 2022-05-16 | Outpatient (CLI) | payer MEDICARE, OTHER ==
[2022-05-16 15:57] LABS: FREE T4 1.34 NG/DL (0.76-1.46); THYROID STIMULATING HORMONE 0.131 uIU/ML (0.358-3.740)
== END ==
LOC: M LAB 14:13
PROVIDERS: ATTEND Internal Medicine Endocrinology, Diabetes & Metabolism
DX: E05.00 Thyrotoxicosis with diffuse goiter without thyrotoxic crisis or storm (principal)

== ENCOUNTER → 2022-09-09 | Outpatient (REF) | payer MEDICARE, OTHER ==
[2022-09-09 17:32] LABS: POTASSIUM SERUM 4.7 MMOL/L (3.5-5.1)
== END ==
LOC: M LAB REF 16:45
PROVIDERS: ATTEND Internal Medicine Nephrology
DX: N18.32 Chronic kidney disease, stage 3b (principal)

== ENCOUNTER → 2022-10-10 | Outpatient (CLI) | payer MEDICARE, OTHER ==
[2022-10-10 10:42] LABS: THYROID STIMULATING HORMONE 0.28 uIU/ML (0.55-4.78)
== END ==
LOC: M LAB 09:25
PROVIDERS: ATTEND Internal Medicine Endocrinology, Diabetes & Metabolism
DX: E05.00 Thyrotoxicosis with diffuse goiter without thyrotoxic crisis or storm (principal)

== ENCOUNTER → 2022-10-18 | Outpatient (CLI) | payer MEDICARE, OTHER ==
[2022-10-18 17:56] LABS: BASO # 0.1 10^3/uL (0.0-0.2); BASO % 0.9 % (0.0-1.0); EOS # 0.2 10^3/uL (0.0-0.5); EOS % 2.6 % (0.0-3.0); HEMATOCRIT 43.6 % (36.0-47.0); HEMOGLOBIN 13.7 g/dl (12.0-15.5); MEAN CORPUSCULAR HGB CONC 31.4 g/dl (32.0-36.5); MEAN CORPUSCULAR VOLUME 101.9 fl (80.0-96.0); MONO # 1.1 10^3/uL (0.0-0.8); MONO % 12.2 % (2.0-8.0); NEUTROPHILS # 6.4 10^3/uL (1.5-8.5); NEUTROPHILS % 72.8 % (36.0-66.0); PLATELET COUNT, AUTOMATED 171 10^3/uL (150-450); RED BLOOD COUNT 4.28 10^6/uL (4.00-5.40); WHITE BLOOD COUNT 8.8 10^3/uL (4.0-10.0)
[2022-10-18 18:07] LABS: FOLATE > 24.00 NG/ML (>5.4); VITAMIN B12 LEVEL 463 PG/ML (211-911)
[2022-10-18 18:10] LABS: ALKALINE PHOSPHATASE 177 U/L (46-116); ALT/SGPT 24 U/L (7.0-40); AST/SGOT 22 U/L (<34); BILIRUBIN,TOTAL 0.5 MG/DL (0.3-1.2); BLOOD UREA NITROGEN 37 MG/DL (9-23); CALCIUM LEVEL 9.4 MG/DL (8.3-10.6); CARBON DIOXIDE LEVEL 27 MMOL/L (20-31); CHLORIDE LEVEL 105 MMOL/L (98-107); CREATININE FOR GFR 1.05 MG/DL (0.55-1.30); GLOMERULAR FILTRATION RATE 53.5 (>32); GLUCOSE, FASTING 88 MG/DL (74-106); POTASSIUM SERUM 4.6 MMOL/L (3.5-5.1); SODIUM LEVEL 141 MMOL/L (136-145); TOTAL PROTEIN 6.8 G/DL (5.7-8.2)
== END ==
LOC: M WUC 14:09
PROVIDERS: ATTEND Family Medicine
DX: R53.83 Other fatigue (principal); Z79.899 Other long term (current) drug therapy

== ENCOUNTER → 2022-10-18 | Outpatient (CLI) | payer MEDICARE, OTHER ==
[2022-10-18 17:35] LABS: APPEARANCE, URINE HAZY (CLEAR); BACTERIA, URINE AUTO 1+ (NEGATIVE); BILIRUBIN, URINE AUTO NEGATIVE (NEGATIVE); BLOOD, URINE BLOOD NEGATIVE (NEGATIVE); COLOR, URINE YELLOW (YELLOW); GLUCOSE, URINE (UA) AUTO NEGATIVE (NEGATIVE); KETONE, URINE AUTO NEGATIVE (NEGATIVE); LEUKOCYTE ESTERASE, URINE AUTO TRACE (NEGATIVE); NITRITE, URINE AUTO NEGATIVE (NEGATIVE); PROTEIN, URINE AUTO 1+ mg/dL (NEGATIVE); RBC, URINE AUTO 0 /HPF (0-3); SQUAMOUS EPITHELIAL CELL UR AU 2 /HPF (0-6); UROBILINOGEN, URINE AUTO 0.2 mg/dL (0.0-2.0); WBC, URINE AUTO 3 /HPF (0-3)
== END ==
LOC: M WUC 14:07
PROVIDERS: ATTEND Internal Medicine Endocrinology, Diabetes & Metabolism
DX: E05.00 Thyrotoxicosis with diffuse goiter without thyrotoxic crisis or storm (principal)

== ENCOUNTER → 2022-10-28 | Outpatient (CLI) | payer MEDICARE, OTHER ==
[2022-10-28 14:29] LABS: ALBUMIN 3.7 G/DL (3.2-5.2); BILIRUBIN,TOTAL 0.5 MG/DL (0.3-1.2); CALCIUM LEVEL 9.5 MG/DL (8.3-10.6); GLOMERULAR FILTRATION RATE 56.6 (>32); TOTAL PROTEIN 6.6 G/DL (5.7-8.2)
== END ==
LOC: M LAB 12:21
PROVIDERS: ATTEND Family Medicine
DX: R74.8 Abnormal levels of other serum enzymes (principal)

== ENCOUNTER → 2023-01-27 | Outpatient (CLI) | payer MEDICARE, OTHER ==
[~2023-01-27] MED LIST changes: -HM S0.65; +SALI0.6531
== END ==
LOC: M WHC 09:42
PROVIDERS: ATTEND Family Medicine
DX: R74.8 Abnormal levels of other serum enzymes (principal); M81.8 Other osteoporosis without current pathological fracture

== ENCOUNTER → 2023-02-03 | Outpatient (CLI) | payer MEDICARE, OTHER ==
[2023-02-03 15:24] LABS: FREE T4 1.05 NG/DL (0.89-1.76); THYROID STIMULATING HORMONE 0.283 uIU/ML (0.55-4.78)
== END ==
LOC: M LAB 13:38
PROVIDERS: ATTEND Nurse Practitioner Family
DX: E05.00 Thyrotoxicosis with diffuse goiter without thyrotoxic crisis or storm (principal)

== ENCOUNTER → 2023-05-30 | Outpatient (CLI) | payer MEDICARE, OTHER ==
[2023-05-30 11:56] LABS: FREE T4 1.06 NG/DL (0.89-1.76)
[2023-05-30 11:57] LABS: THYROID STIMULATING HORMONE 0.487 uIU/ML (0.55-4.78)
== END ==
LOC: M LAB 10:55
PROVIDERS: ATTEND Internal Medicine Endocrinology, Diabetes & Metabolism
DX: E05.00 Thyrotoxicosis with diffuse goiter without thyrotoxic crisis or storm (principal)

== ENCOUNTER → 2023-09-27 | Outpatient (CLI) | payer MEDICARE, OTHER ==
[~2023-09-27] MED LIST changes: +OPTI0.5D2 OP; -OPTI0.5D5 OP
[2023-09-27 14:31] LABS: FREE T4 1.19 NG/DL (0.89-1.76); THYROID STIMULATING HORMONE 0.41 uIU/ML (0.55-4.78)
== END ==
LOC: M LAB 13:32
PROVIDERS: ATTEND Nurse Practitioner Family
DX: E05.00 Thyrotoxicosis with diffuse goiter without thyrotoxic crisis or storm (principal)

== ENCOUNTER 2024-03-01 11:40 | Inpatient (IN) | payer MEDICARE, OTHER ==
[~2024-03-01] VITALS: Ht 149.9 cm; Wt 62.8 kg
[~2024-03-01 11:40] MED LIST changes: -CARV3.12; +CARV3.12 PO
[2024-03-01] MEDS: LIDOCAINE 2% 5ML JELLY UROJET TOP ONE (13:05)
[2024-03-01 14:04] LABS: BASO # 0.1 10^3/uL (0.0-0.2); BASO % 0.6 % (0.0-1.0); EOS # 0.1 10^3/uL (0.0-0.5); EOS % 1.4 % (0.0-3.0); HEMATOCRIT 37.8 % (36.0-47.0); HEMOGLOBIN 12.3 g/dl (12.0-15.5); LYMPH % 10.2 % (24.0-44.0); MEAN CORPUSCULAR HEMOGLOBIN 33.3 pg (27.0-33.0); MEAN CORPUSCULAR HGB CONC 32.5 g/dl (32.0-36.5); MEAN CORPUSCULAR VOLUME 102.4 fl (80.0-96.0); MONO # 1.2 10^3/uL (0.0-0.8); MONO % 12.6 % (2.0-8.0); NEUTROPHILS # 7.2 10^3/uL (1.5-8.5); NEUTROPHILS % 74.8 % (36.0-66.0); PLATELET COUNT, AUTOMATED 158 10^3/uL (150-450); RED BLOOD COUNT 3.69 10^6/uL (4.00-5.40); WHITE BLOOD COUNT 9.7 10^3/uL (4.0-10.0)
[2024-03-01 14:19] LABS: ETHYL ALCOHOL (ETHANOL) < 0.003 % (0.000-0.010)
[2024-03-01 14:21] LABS: ALBUMIN 3.7 G/DL (3.2-5.2); ALKALINE PHOSPHATASE 95 U/L (46-116); ALT/SGPT 25 U/L (7.0-40); AST/SGOT 22 U/L (<34); BILIRUBIN,DIRECT < 0.1 MG/DL (<0.4); BILIRUBIN,TOTAL 0.4 MG/DL (0.3-1.2); BLOOD UREA NITROGEN 28 MG/DL (9-23); CALCIUM LEVEL 9.2 MG/DL (8.3-10.6); CARBON DIOXIDE LEVEL 22 MMOL/L (20-31); CHLORIDE LEVEL 114 MMOL/L (98-107); CREATININE FOR GFR 1.04 MG/DL (0.55-1.30); GLUCOSE, FASTING 98 MG/DL (74-106); POTASSIUM SERUM 4.4 MMOL/L (3.5-5.1); SALICYLATE LEVEL < 3.0 MG/DL (<30); SODIUM LEVEL 141 MMOL/L (136-145); TOTAL PROTEIN 6.4 G/DL (5.7-8.2)
[2024-03-01 14:23] LABS: THYROID STIMULATING HORMONE 0.239 uIU/ML (0.55-4.78)
[2024-03-01] MEDS ORDERED: LEXA1TAB PO (16:26)
[2024-03-01] MEDS ORDERED: OCUVTAB4 PO (16:26)
[2024-03-01] MEDS ORDERED: MEMA10TA PO (16:26)
[2024-03-01] MEDS ORDERED: CVS1CHW13 PO (16:27)
[2024-03-01] MEDS ORDERED: HOME MED LIST COMPLETE! XX SCH (16:30)
[2024-03-01 16:52] LABS: AMPHETAMINES LEVEL URINE NEGATIVE (NEGATIVE); BARBITURATES URINE NEGATIVE (NEGATIVE); BENZODIAZEPINES URINE NEGATIVE (NEGATIVE); COCAINE METABOLITE URINE NEGATIVE (NEGATIVE); METHADONE URINE NEGATIVE (NEGATIVE); OPIATES URINE NEGATIVE (NEGATIVE); PHENCYCLIDINE URINE NEGATIVE (NEGATIVE)
[2024-03-01 16:53] LABS: CANNABINOIDS URINE NEGATIVE (NEGATIVE)
[2024-03-01] MEDS ORDERED: OLANZapine 5 MG TAB PO PRN (17:05)
[2024-03-01] MEDS ORDERED: ESCITALOPRAM OXALATE 10 MG TAB (LEXAPRO) PO SCH (18:00)
[2024-03-01] MEDS: MIRTAZAPINE 7.5MG PER 1/2 TABLET PO SCH (21:20)
[2024-03-01] MEDS: DOCUSATE SODIUM 100MG CAPSULE PO SCH (21:21)
[2024-03-01] MEDS: CARVedilol 3.125 MG TAB PO SCH (21:21)
[2024-03-01] MEDS: amLODIPine 5 MG TAB PO SCH (21:22)
[2024-03-01] MEDS: MEMANTINE 5MG TABLET (NAMENDA) PO SCH (21:26)
[2024-03-01] MEDS: ACETAMINOPHEN TAB 650MG DOSE (2X325MG) PO PRN (21:27)
[2024-03-01 22:04] VITALS: BP 172/80; TEMP 97.3; O2SAT 98
[2024-03-01] MEDS: OLANZapine 5 MG TAB PO PRN (22:54)
[2024-03-02 06:55] LABS: INR 1.04; PARTIAL THROMBOPLASTIN TIME 27.8 SECONDS (24.8-34.2); PROTHROMBIN TIME 13.2 SECONDS (12.5-14.5)
[2024-03-02] MEDS: ASPIRIN 81MG CHEW TABLET PO SCH (09:12)
[2024-03-02] MEDS: ESCITALOPRAM OXALATE 10 MG TAB (LEXAPRO) PO SCH (09:13)
[2024-03-02] MEDS: SPIRONOLACTONE 25 MG TAB PO SCH (09:14)
[2024-03-02 12:00] VITALS: BP 152/65; TEMP 97.5; O2SAT 97
[2024-03-02] MEDS: RIVAROXABAN 10MG TAB (XARELTO) PO SCH (17:47)
[2024-03-02 20:20] VITALS: BP 154/76; TEMP 97.7; O2SAT 95
[2024-03-03 04:28] VITALS: BP 151/76; TEMP 96.8; O2SAT 100
[2024-03-03 12:00] VITALS: BP 114/62; TEMP 97.3; O2SAT 83
[2024-03-03 20:00] VITALS: BP 114/52; TEMP 97.7; O2SAT 95
[2024-03-04 04:00] VITALS: BP 127/58; TEMP 97.5; O2SAT 98
[2024-03-04 06:02] LABS: BASO # 0.1 10^3/uL (0.0-0.2); BASO % 0.7 % (0.0-1.0); EOS # 0.2 10^3/uL (0.0-0.5); EOS % 2.2 % (0.0-3.0); HEMATOCRIT 36.9 % (36.0-47.0); LYMPH # 1.4 10^3/uL (1.5-5.0); LYMPH % 15.2 % (24.0-44.0); MEAN CORPUSCULAR HEMOGLOBIN 33.1 pg (27.0-33.0); MEAN CORPUSCULAR HGB CONC 32.5 g/dl (32.0-36.5); MEAN CORPUSCULAR VOLUME 101.9 fl (80.0-96.0); MONO # 1.3 10^3/uL (0.0-0.8); MONO % 14.5 % (2.0-8.0); NEUTROPHILS % 67.1 % (36.0-66.0); PLATELET COUNT, AUTOMATED 164 10^3/uL (150-450); RED BLOOD COUNT 3.62 10^6/uL (4.00-5.40)
[2024-03-04 06:26] LABS: CALCIUM LEVEL 9.3 MG/DL (8.3-10.6); GLOMERULAR FILTRATION RATE 56.5 (>32); POTASSIUM SERUM 3.8 MMOL/L (3.5-5.1)
[2024-03-04 06:28] LABS: FREE T4 1.47 NG/DL (0.89-1.76)
[2024-03-04 06:29] LABS: THYROID STIMULATING HORMONE 0.178 uIU/ML (0.55-4.78)
[2024-03-04 06:31] LABS: FREE T3 4.5 PG/ML (2.3-4.2)
[2024-03-04 12:00] VITALS: BP 165/73; TEMP 97.7; O2SAT 97
[2024-03-05 03:10] VITALS: BP 150/68; TEMP 97.2; O2SAT 98
[2024-03-06 04:10] VITALS: BP 113/50; TEMP 97.5; O2SAT 96
[2024-03-06 08:30] LABS: BASO # 0.1 10^3/uL (0.0-0.2); BASO % 0.9 % (0.0-1.0); EOS # 0.2 10^3/uL (0.0-0.5); EOS % 2.2 % (0.0-3.0); HEMATOCRIT 35.8 % (36.0-47.0); HEMOGLOBIN 11.7 g/dl (12.0-15.5); LYMPH # 1.4 10^3/uL (1.5-5.0); LYMPH % 16.8 % (24.0-44.0); MEAN CORPUSCULAR HEMOGLOBIN 33.1 pg (27.0-33.0); MEAN CORPUSCULAR HGB CONC 32.7 g/dl (32.0-36.5); MEAN CORPUSCULAR VOLUME 101.4 fl (80.0-96.0); MONO # 1.2 10^3/uL (0.0-0.8); MONO % 13.8 % (2.0-8.0); NEUTROPHILS # 5.6 10^3/uL (1.5-8.5); NEUTROPHILS % 65.9 % (36.0-66.0); PLATELET COUNT, AUTOMATED 166 10^3/uL (150-450); RED BLOOD COUNT 3.53 10^6/uL (4.00-5.40); WHITE BLOOD COUNT 8.5 10^3/uL (4.0-10.0)
[2024-03-06 08:55] LABS: CALCIUM LEVEL 9.6 MG/DL (8.3-10.6); CREATININE FOR GFR 1.07 MG/DL (0.55-1.30); GLOMERULAR FILTRATION RATE 52.3 (>32); MAGNESIUM LEVEL 1.6 MG/DL (1.8-2.4)
[2024-03-06] MEDS: MAGNESIUM OXIDE 400MG TAB (MAG-OX) PO ONE (11:00)
[2024-03-07 03:50] VITALS: BP 161/73; TEMP 97.2; O2SAT 99
[2024-03-08 04:10] VITALS: BP 154/60; TEMP 97.5; O2SAT 98
[2024-03-09 05:00] VITALS: BP 159/63; TEMP 97.5; O2SAT 97
[2024-03-10 03:40] VITALS: BP 147/68; TEMP 97.7; O2SAT 98
[2024-03-11 03:48] VITALS: BP 132/53; TEMP 97.5; O2SAT 97
[2024-03-12 04:00] VITALS: BP 147/68; TEMP 97.2; O2SAT 98
[2024-03-12] MEDS: MOM 30ML SUSPENSION UDC PO PRN (21:05)
[2024-03-13 04:20] VITALS: BP 147/70; TEMP 97.3; O2SAT 94
[2024-03-14] MEDS ORDERED: PERMETHRIN 5% CREAM 60 GM TOP SCH
[2024-03-14 03:02] VITALS: BP 130/60; TEMP 97.5; O2SAT 97
[2024-03-14] MEDS: PERMETHRIN 5% CREAM 60 GM TOP ONE (17:03)
[2024-03-14 21:10] VITALS: BP 167/57
[2024-03-15 03:52] VITALS: BP 159/60; TEMP 97.9; O2SAT 98
[2024-03-16 04:00] VITALS: BP 134/53; TEMP 97.2; O2SAT 98
[2024-03-16] MEDS: OLANZapine 5 MG TAB PO PRN (20:08)
[2024-03-16 20:18] VITALS: BP 151/83; TEMP 97.5; O2SAT 99
[2024-03-17 05:14] VITALS: BP 146/63; TEMP 96.6; O2SAT 97
[2024-03-18 04:00] VITALS: BP 130/60; TEMP 97.7; O2SAT 94
[2024-03-19 04:00] VITALS: BP 134/67; TEMP 97.9; O2SAT 93
[2024-03-20 04:00] VITALS: BP 135/81; TEMP 97.9; O2SAT 94
[2024-03-21 04:00] VITALS: BP 120/48; TEMP 97.3; O2SAT 97
[2024-03-21] MEDS: MIRALAX *UNIT DOSE* 17GM PACKET PO PRN (09:28)
[2024-03-21] MEDS: PERMETHRIN 5% CREAM 60 GM TOP ONE (17:49)
[2024-03-22 05:23] VITALS: BP 154/71; TEMP 97.5; O2SAT 98
[2024-03-22 19:40] VITALS: BP 153/71
[2024-03-23 04:54] VITALS: BP 135/59; TEMP 97.5; O2SAT 97
[2024-03-23 19:48] VITALS: BP 149/67
[2024-03-24 04:00] VITALS: BP 125/53; TEMP 97.3; O2SAT 98
[2024-03-24 19:40] VITALS: BP 135/68
[2024-03-25 04:00] VITALS: BP 137/70; TEMP 97; O2SAT 96
[2024-03-25 05:19] LABS: HEMATOCRIT 34.7 % (36.0-47.0); HEMOGLOBIN 11.1 g/dl (12.0-15.5); MEAN CORPUSCULAR HEMOGLOBIN 32.5 pg (27.0-33.0); MEAN CORPUSCULAR VOLUME 101.5 fl (80.0-96.0); PLATELET COUNT, AUTOMATED 188 10^3/uL (150-450); RED BLOOD COUNT 3.42 10^6/uL (4.00-5.40); WHITE BLOOD COUNT 7.5 10^3/uL (4.0-10.0)
[2024-03-25 05:47] LABS: ALBUMIN 3.2 G/DL (3.2-5.2); BILIRUBIN,TOTAL 0.3 MG/DL (0.3-1.2); CALCIUM LEVEL 9.3 MG/DL (8.3-10.6); CREATININE FOR GFR 1.34 MG/DL (0.55-1.30); GLOMERULAR FILTRATION RATE 40.3 (>32); POTASSIUM SERUM 4.6 MMOL/L (3.5-5.1); TOTAL PROTEIN 5.8 G/DL (5.7-8.2)
[2024-03-25 05:49] LABS: FREE T4 1.23 NG/DL (0.89-1.76); THYROID STIMULATING HORMONE 0.212 uIU/ML (0.55-4.78)
[2024-03-25 05:51] LABS: TOTAL T3 158.5 NG/DL (60.0-181.0)
[2024-03-25 10:00] VITALS: O2SAT 96
[2024-03-26 04:00] VITALS: BP 107/53; TEMP 97.4; O2SAT 98
[2024-03-26] MEDS ORDERED: MIRA33506 PO (08:08)
[2024-03-26] MEDS ORDERED: COLA100C5 PO (08:08)
[2024-03-26] MEDS ORDERED: ACET1TAB55 PO (08:08)
[2024-03-26] MEDS ORDERED: MIRT-10 PO (08:08)
[2024-03-26] MEDS ORDERED: LEXA1TAB PO (08:08)
[2024-03-26] MEDS ORDERED: OLAN1TAB16 PO (08:08)
[2024-03-26 20:00] VITALS: BP 113/55; TEMP 97.9; O2SAT 94
[2024-03-27 20:02] VITALS: BP 155/76; TEMP 97.7; O2SAT 96
[2024-03-28 05:39] VITALS: BP 157/73; TEMP 97; O2SAT 95
[2024-03-29 03:55] VITALS: BP 140/67; TEMP 97.2; O2SAT 97
[2024-03-29 21:01] VITALS: BP 129/56; TEMP 97.7; O2SAT 97
[2024-03-30 06:18] VITALS: BP 149/82; TEMP 97.7; O2SAT 96
[2024-03-30 19:46] VITALS: BP 119/67; TEMP 97.5; O2SAT 97
[2024-03-31 04:11] VITALS: BP 122/66; TEMP 97.5; O2SAT 94
[2024-04-01 04:00] VITALS: BP 118/54; TEMP 97.9; O2SAT 98
[2024-04-02 04:00] VITALS: BP 122/77; TEMP 97.3; O2SAT 97
[2024-04-03 04:00] VITALS: BP 136/71; TEMP 97.9; O2SAT 97
[2024-04-04 03:53] VITALS: BP 116/45; TEMP 98.1; O2SAT 96
[2024-04-05 04:00] VITALS: BP 128/62; TEMP 97.7; O2SAT 95
[2024-04-05 19:30] VITALS: BP 113/76; TEMP 97.7; O2SAT 97
[2024-04-05 20:30] VITALS: BP 120/71; TEMP 97.7; O2SAT 96
[2024-04-06 04:11] VITALS: BP 143/66; TEMP 97.7; O2SAT 97
[2024-04-07 04:24] VITALS: BP 141/66; TEMP 96.8; O2SAT 93
[2024-04-07 13:11] LABS: HEMATOCRIT 33.5 % (36.0-47.0); MEAN CORPUSCULAR HEMOGLOBIN 32.9 pg (27.0-33.0); MEAN CORPUSCULAR HGB CONC 32.8 g/dl (32.0-36.5); MEAN CORPUSCULAR VOLUME 100.3 fl (80.0-96.0); PLATELET COUNT, AUTOMATED 148 10^3/uL (150-450); RED BLOOD COUNT 3.34 10^6/uL (4.00-5.40); WHITE BLOOD COUNT 9.5 10^3/uL (4.0-10.0)
[2024-04-07 13:47] LABS: ALBUMIN 2.8 G/DL (3.2-5.2); BILIRUBIN,TOTAL 0.4 MG/DL (0.3-1.2); CALCIUM LEVEL 9.5 MG/DL (8.3-10.6); CREATININE FOR GFR 1.05 MG/DL (0.55-1.30); GLOMERULAR FILTRATION RATE 53.4 (>32); POTASSIUM SERUM 4.4 MMOL/L (3.5-5.1); TOTAL PROTEIN 5.6 G/DL (5.7-8.2)
[2024-04-08 04:38] VITALS: BP 168/77; TEMP 98.1; O2SAT 92
[2024-04-09 04:02] VITALS: BP 142/64; TEMP 98.8; O2SAT 97
[2024-04-09 08:28] VITALS: BP 144/91
== END 2024-04-09 12:15 | disposition other institution (70) | DRG 884 ==
LOC: M ED 11:40 → M ED INP 17:05 → M MSPAV 21:58
PROVIDERS: ADMIT Internal Medicine Nephrology; ATTEND Internal Medicine
DX: F03.918 Unspecified dementia, unspecified severity, with other behavioral disturbance (principal); E87.0 Hyperosmolality and hypernatremia; I12.9 Hypertensive chronic kidney disease with stage 1 through stage 4 chronic kidney disease, or unspecified chronic kidney disease; E05.00 Thyrotoxicosis with diffuse goiter without thyrotoxic crisis or storm; F32.A Depression, unspecified; F41.9 Anxiety disorder, unspecified; R32 Unspecified urinary incontinence; M85.88 Other specified disorders of bone density and structure, other site; M19.90 Unspecified osteoarthritis, unspecified site; Z79.82 Long term (current) use of aspirin; Z79.899 Other long term (current) drug therapy; Z88.2 Allergy status to sulfonamides; Z88.1 Allergy status to other antibiotic agents; N18.30 Chronic kidney disease, stage 3 unspecified; E83.42 Hypomagnesemia